=== PATIENT | female | born 1950 | race African-American/Black ===

== ENCOUNTER 2020-02-04 13:52 | Inpatient (IN) | payer MEDICARE ==
--- NOTE | 2020-02-04 14:43 | ED ---
Fever HPI - General Chief Complaint: Weakness Stated Complaint: Weakness, no appetite Time Seen by Provider: 02/04/20 14:13 Source: patient Mode of arrival: wheelchair Limitations: no limitations - Related Data Allergies Allergy/AdvReac Type Severity Reaction Status Date / Time No Known Allergies Allergy Verified 02/04/20 14:10 Review of Systems ROS Statement: Those systems with pertinent positive or pertinent negative responses have been documented in the HPI. ROS Other: All systems not noted in ROS Statement are negative. Past Medical History Past Medical History: Hypertension History of Any Multi-Drug Resistant Organisms: None Reported Past Surgical History: No Surgical Hx Reported Past Psychological History: No Psychological Hx Reported Smoking Status: Never smoker Past Alcohol Use History: None Reported Past Drug Use History: None Reported General Exam Limitations: no limitations Course Vital Signs 02/04/20 02/04/20 14:05 15:48 Temperature 101.2 F H Pulse Rate 122 H 103 H Respiratory 20 18 Rate Blood Pressure 97/64 103/93 O2 Sat by Pulse 95 93 L Oximetry - Reevaluation(s) Reevaluation #1: 02/04/20 16:22 medical record is reviewed Reevaluation #2: 02/04/20 16:23 Patient regarding findings and questions are answered Reevaluation #3: 02/04/20 16:23 Chief feeling better with fever control Medical Decision Making - Medical Decision Making 61 female fever likely coronavirus, bilateral pneumonia, new onset atrial fibrillation with RVR - Lab Data Result diagrams: 02/04/20 14:49 02/04/20 14:49 Lab Results 02/04/20 02/04/20 02/04/20 Range/Units 14:49 14:49 14:49 WBC 27.4 H (3.8-10.6) k/uL RBC 3.98 (3.80-5.40) m/uL Hgb 10.6 L (11.4-16.0) gm/dL Hct 33.2 L (34.0-46.0) % MCV 83.4 (80.0-100.0) fL MCH 26.6 (25.0-35.0) pg MCHC 31.9 (31.0-37.0) g/dL RDW 14.1 (11.5-15.5) % Plt Count 271 (150-450) k/uL Neutrophils % 94 % Lymphocytes % 2 % Monocytes % 3 % Eosinophils % 0 % Basophils % 1 % Neutrophils # 25.7 H (1.3-7.7) k/uL Lymphocytes # 0.4 L (1.0-4.8) k/uL Monocytes # 0.8 (0-1.0) k/uL Eosinophils # 0.0 (0-0.7) k/uL Basophils # 0.1 (0-0.2) k/uL Hypochromasia Slight PT 11.0 (9.0-12.0) sec INR 1.1 (<1.2) APTT 22.5 (22.0-30.0) sec Sodium 135 L (137-145) mmol/L Potassium 3.7 (3.5-5.1) mmol/L Chloride 101 (98-107) mmol/L Carbon Dioxide 23 (22-30) mmol/L Anion Gap 11 mmol/L BUN 20 H (7-17) mg/dL Creatinine 1.47 H (0.52-1.04) mg/dL Est GFR (CKD-EPI)AfAm 42 (>60 ml/min/1.73 sqM) Est GFR (CKD-EPI)NonAf 36 (>60 ml/min/1.73 sqM) Glucose 133 H (74-99) mg/dL Plasma Lactic Acid Jm (0.7-2.0) mmol/L Calcium 8.6 (8.4-10.2) mg/dL Magnesium 1.7 (1.6-2.3) mg/dL Total Bilirubin 1.5 H (0.2-1.3) mg/dL AST 128 H (14-36) U/L ALT 77 H (4-34) U/L Alkaline Phosphatase 215 H (38-126) U/L Lactate Dehydrogenase 1327 H (313-618) U/L C-Reactive Protein 346.9 H (<10.0) mg/L Total Protein 6.9 (6.3-8.2) g/dL Albumin 3.0 L (3.5-5.0) g/dL 02/04/20 Range/Units 14:49 WBC (3.8-10.6) k/uL RBC (3.80-5.40) m/uL Hgb (11.4-16.0) gm/dL Hct (34.0-46.0) % MCV (80.0-100.0) fL MCH (25.0-35.0) pg MCHC (31.0-37.0) g/dL RDW (11.5-15.5) % Plt Count (150-450) k/uL Neutrophils % % Lymphocytes % % Monocytes % % Eosinophils % % Basophils % % Neutrophils # (1.3-7.7) k/uL Lymphocytes # (1.0-4.8) k/uL Monocytes # (0-1.0) k/uL Eosinophils # (0-0.7) k/uL Basophils # (0-0.2) k/uL Hypochromasia PT (9.0-12.0) sec INR (<1.2) APTT (22.0-30.0) sec Sodium (137-145) mmol/L Potassium (3.5-5.1) mmol/L Chloride (98-107) mmol/L Carbon Dioxide (22-30) mmol/L Anion Gap mmol/L BUN (7-17) mg/dL Creatinine (0.52-1.04) mg/dL Est GFR (CKD-EPI)AfAm (>60 ml/min/1.73 sqM) Est GFR (CKD-EPI)NonAf (>60 ml/min/1.73 sqM) Glucose (74-99) mg/dL Plasma Lactic Acid Jm 4.8 H* (0.7-2.0) mmol/L Calcium (8.4-10.2) mg/dL Magnesium (1.6-2.3) mg/dL Total Bilirubin (0.2-1.3) mg/dL AST (14-36) U/L ALT (4-34) U/L Alkaline Phosphatase (38-126) U/L Lactate Dehydrogenase (313-618) U/L C-Reactive Protein (<10.0) mg/L Total Protein (6.3-8.2) g/dL Albumin (3.5-5.0) g/dL - EKG Data -: EKG Interpreted by Me (EKG shows sinus a cardia 113 GA 128 QRS 78 QTc 452) - Radiology Data Radiology results: report reviewed (CXR is bileteral pna), image reviewed Critical Care Time Critical Care Time: Yes Total Critical Care Time: 31 Disposition Clinical Impression: Fever, COVID-19, Bilateral pneumonia, Dehydration, Atrial fibrillation with RVR Disposition: ADMITTED IP TO THIS HOSP Condition: Serious Is patient prescribed a controlled substance at d/c from ED?: No Referrals: None,Stated [Primary Care Provider] - 1-2 days
--- NOTE | 2020-02-04 14:51 | XR ---
EXAMINATION TYPE: XR chest 1V portable DATE OF EXAM: 02/04/2020 COMPARISON: NONE HISTORY: Covid 19 pneumonia suspected, weakness, fatigue and loss of appetite TECHNIQUE: Single frontal view of the chest is obtained. FINDINGS: The heart is at the upper limit of normal however appearance may be accentuated by rotatio n. Patchy basilar density is present, there is no pneumothorax or pleural effusion. Pulmonary vascula rity and brenda within normal limits. Bones show normal mineralization. IMPRESSION: Possible basilar atelectasis, rotated exam. Consider follow-up PA and lateral chest x-ra y when stable.
[2020-02-04] MEDS ORDERED: ACETAMINOPHEN TAB 500 MG TAB PO STA (15:02)
[2020-02-04] MEDS ORDERED: SODIUM CHLORIDE 0.9% 1,000 ML IV STA (15:02)
[2020-02-04] MEDS ORDERED: IBUPROFEN 800 MG TAB PO STA (15:02)
[2020-02-04 15:04] LABS: Basophils # (A) 0.1 k/uL (0-0.2); Basophils % (A) 1 %; Eosinophils % (A) 0 %; HCT 33.2 % (34.0-46.0); HGB 10.6 gm/dL (11.4-16.0); Hypochromasia Slight; Lymphocytes # (A) 0.4 k/uL (1.0-4.8); Lymphocytes % (A) 2 %; MCH 26.6 pg (25.0-35.0); MCHC 31.9 g/dL (31.0-37.0); MCV 83.4 fL (80.0-100.0); Mean Platelet Volume 9.2; Monocytes # (A) 0.8 k/uL (0-1.0); Monocytes % (A) 3 %; Neutrophils # (A) 25.7 k/uL (1.3-7.7); Neutrophils % (A) 94 %; Platelet Count 271 k/uL (150-450); RBC 3.98 m/uL (3.80-5.40); RDW 14.1 % (11.5-15.5); WBC 27.4 k/uL (3.8-10.6)
[2020-02-04 15:21] LABS: INR 1.1 (<1.2); Partial Thromboplastin Time 22.5 sec (22.0-30.0)
[2020-02-04 16:02] LABS: C Reactive Protein 346.9 mg/L (<10.0)
[2020-02-04 16:08] LABS: Calcium 8.6 mg/dL (8.4-10.2); Magnesium 1.7 mg/dL (1.6-2.3); Potassium 3.7 mmol/L (3.5-5.1); Total Bilirubin 1.5 mg/dL (0.2-1.3); Total Protein 6.9 g/dL (6.3-8.2)
[2020-02-04] MEDS ORDERED: HEPARIN SODIUM,PORCINE 5,000 UNIT/ML 1 ML VIAL IV ONE (16:25)
[2020-02-04] MEDS ORDERED: HEPARIN SODIUM,PORCINE 5,000 UNIT/ML 1 ML VIAL IV PRN (16:25)
[2020-02-04] MEDS ORDERED: DILTIAZEM DRIP BOLUS FROM BAG 1 MG SOLN IV ONE (16:25)
[2020-02-04] MEDS ORDERED: AZITHROMYCIN 500 MG in SODIUM CHLORIDE 0.9% 250 ML IVPB STA (16:27)
[2020-02-04] MEDS ORDERED: HEPARIN SOD,PORK IN 0.45% NACL 25,000 UNIT in 0.45% NACL 1 250ML.BAG IV SCH (16:30)
[2020-02-04] MEDS: SODIUM CHLORIDE 0.9% 500 ML 500 ML IV SCH ×2 (16:40→16:41)
[2020-02-04] MEDS ORDERED: DILTIAZEM 125 MG in SODIUM CHLORIDE 0.9% 100 ML IV SCH (16:45)
[2020-02-04] MEDS: SODIUM CHLORIDE 0.9% 1,000 ML IV SCH ×2 (20:16→23:39)
[2020-02-05 04:26] LABS: Ferritin 925.4 ng/mL (10.0-291.0)
[2020-02-05] MEDS: SODIUM CHLORIDE 0.9% 1,000 ML IV SCH ×3 (06:06→19:56)
[2020-02-05 07:57] LABS: Basophils # (A) 0.1 k/uL (0-0.2); Basophils % (A) 0 %; Eosinophils % (A) 0 %; Hypochromasia Moderate; Lymphocytes % (A) 7 %; MCH 26.1 pg (25.0-35.0); MCHC 30.9 g/dL (31.0-37.0); MCV 84.5 fL (80.0-100.0); Mean Platelet Volume 9.2; Monocytes # (A) 0.8 k/uL (0-1.0); Monocytes % (A) 5 %; Neutrophils % (A) 85 %; Platelet Count 206 k/uL (150-450); RBC 3.31 m/uL (3.80-5.40); RDW 14.2 % (11.5-15.5); WBC 15.4 k/uL (3.8-10.6)
[2020-02-05 08:00] LABS: HGB 8.6 gm/dL (11.4-16.0)
[2020-02-05 08:06] LABS: Potassium 3.3 mmol/L (3.5-5.1)
[2020-02-05 08:07] LABS: Calcium 7.3 mg/dL (8.4-10.2)
[2020-02-05] MEDS: PANTOPRAZOLE 40 MG/10 ML VIAL IV SCH (08:38)
[2020-02-05] MEDS: ASPIRIN 81 MG PO SCH (08:38)
--- NOTE | 2020-02-05 11:26 | XR ---
EXAMINATION TYPE: XR chest 1V DATE OF EXAM: 02/05/2020 COMPARISON: Prior chest x-ray 02/04/2020 HISTORY: Pneumonia TECHNIQUE: Single frontal view of the chest is obtained. FINDINGS: There is no focal air space opacity, pleural effusion, or pneumothorax seen. The cardiac silhouette size is within normal limits. The osseous structures are intact. IMPRESSION: No acute process.
--- NOTE | 2020-02-05 12:11 | P.CRDCN ---
History of Present Illness History of present illness: The patient was not physically examined secondary to pending Covid 19 test. Information was obtained from the medical record and recommendations made remotely. HISTORY OF PRESENTING ILLNESS This is a pleasant 69-year-old female with no significant past medical history. We have been asked to see in consultation for atrial fibrillation. She presented to the hospital with symptoms of generalized weakness, poor appetite overall fatigue. She had a temperature on admission of 101.2F. EKG on admission revealed sinus tachycardia rate of 113. Telemetry tracings revealed there was one short burst of atrial tachycardia noted. Chest x-ray on admission revealed basilar atelectasis. Repeat today reveals no acute cardiopulmonary process. Laboratory data reviewed, WBC on admission 20 7. 4 repeat today 15.4, hemoglobin 8.6, platelets 206, sodium 139, potassium 3.3, creatinine 1.2, lactic acid on admission 4. 8 repeat after hydration 1.4, magnesium 1.7, total bilirubin 1.5, AST 128, ALT 77, alkaline phosphate 215, lactate 1327, C-reactive protein 346. She takes no daily cardiac medications other than aspirin 81 mg daily. There are no old records to review. PHYSICAL EXAMINATION Not performed ASSESSMENT Febrile illness Leukocytosis Lactic acidosis Transaminitis Atrial tachycardia PLAN Initiate on lopressor 25 mg BID. Heart rates should improve when underlying infection improves. Thank you kindly for this consultation. Nurse Practitioner note has been reviewed, I agree with a documented findings and plan of care. Patient was seen and examined. Past Medical History Past Medical History: Hypertension History of Any Multi-Drug Resistant Organisms: None Reported Past Surgical History: No Surgical Hx Reported Past Psychological History: No Psychological Hx Reported Smoking Status: Never smoker Past Alcohol Use History: None Reported Past Drug Use History: None Reported Medications and Allergies Home Medications Medication Instructions Recorded Confirmed Type Aspirin EC [Ecotrin Low Dose] 81 mg PO DAILY 02/04/20 02/04/20 History Allergies Allergy/AdvReac Type Severity Reaction Status Date / Time No Known Allergies Allergy Verified 02/04/20 17:00 Physical Exam Vitals: Vital Signs Temp Pulse Pulse Resp BP BP Pulse Ox 02/05/20 08:15 97.9 F 95 20 155/82 98 02/05/20 03:20 98.1 F 88 18 129/78 94 L 02/04/20 23:40 98 F 88 18 129/76 94 L 02/04/20 20:00 98.3 F 89 20 133/65 99 02/04/20 17:13 99.5 F 97 18 109/75 95 02/04/20 16:44 98.7 F 101 H 20 128/78 97 02/04/20 15:48 103 H 18 103/93 93 L 02/04/20 14:05 101.2 F H 122 H 20 97/64 95 Intake and Output 02/04/20 02/05/20 02/05/20 22:59 06:59 14:59 Intake Total 240 240 240 Output Total 0 Balance 240 240 240 Intake: Oral 240 240 240 Output: Urine 0 Stool 0 Other: Voiding Method Toilet # Voids 1 1 0 # Bowel Movements 0 Weight 117.48 kg 117.5 kg Results 02/05/20 07:03 02/05/20 07:03 Cardiac Enzymes 02/04/20 Range/Units 14:49 AST 128 H (14-36) U/L Lactate Dehydrogenase 1327 H (313-618) U/L Coagulation 02/04/20 Range/Units 14:49 PT 11.0 (9.0-12.0) sec APTT 22.5 (22.0-30.0) sec CBC 02/04/20 02/05/20 Range/Units 14:49 07:03 WBC 27.4 H 15.4 H (3.8-10.6) k/uL RBC 3.98 3.31 L (3.80-5.40) m/uL Hgb 10.6 L 8.6 L D (11.4-16.0) gm/dL Hct 33.2 L 28.0 L (34.0-46.0) % Plt Count 271 206 (150-450) k/uL Comprehensive Metabolic Panel 02/04/20 02/05/20 Range/Units 14:49 07:03 Sodium 135 L 139 (137-145) mmol/L Potassium 3.7 3.3 L (3.5-5.1) mmol/L Chloride 101 110 H (98-107) mmol/L Carbon Dioxide 23 23 (22-30) mmol/L BUN 20 H 24 H (7-17) mg/dL Creatinine 1.47 H 1.20 H (0.52-1.04) mg/dL Glucose 133 H 95 (74-99) mg/dL Calcium 8.6 7.3 L (8.4-10.2) mg/dL AST 128 H (14-36) U/L ALT 77 H (4-34) U/L Alkaline Phosphatase 215 H (38-126) U/L Total Protein 6.9 (6.3-8.2) g/dL Albumin 3.0 L (3.5-5.0) g/dL Current Medications Generic Name Dose Route Start Last Admin Trade Name Freq PRN Reason Stop Dose Admin Acetaminophen 650 mg 02/04/20 21:13 Acetaminophen Tab 325 Mg Tab PO Q6HR PRN Fever and/ or Pain Aspirin 81 mg 02/05/20 09:00 02/05/20 08:38 Aspirin 81 Mg PO 81 mg DAILY DANIEL Administration Sodium Chloride 1,000 mls @ 100 mls/hr 02/04/20 16:30 02/05/20 06:06 Saline 0.9% IV 130 mls/hr .Q10H DANIEL Administration Azithromycin 500 mg/ Sodium 250 mls @ 250 mls/hr 02/05/20 16:00 Chloride IVPB DAILY@1600 DANIEL Ceftriaxone Sodium 1 gm/ 50 mls @ 100 mls/hr 02/04/20 21:15 02/04/20 22:06 Sodium Chloride IVPB 100 mls/hr HS DANIEL Administration Pantoprazole Sodium 40 mg 02/05/20 09:00 02/05/20 08:38 Pantoprazole 40 Mg/10 Ml Vial IV 40 mg DAILY DANIEL Administration Intake and Output 02/04/20 02/05/20 02/05/20 22:59 06:59 14:59 Intake Total 240 240 240 Output Total 0 Balance 240 240 240 Intake: Oral 240 240 240 Output: Urine 0 Stool 0 Other: Voiding Method Toilet # Voids 1 1 0 # Bowel Movements 0 Weight 117.48 kg 117.5 kg 02/05/20 07:03 02/05/20 07:03
[2020-02-05] MEDS: METOPROLOL TARTRATE 25 MG TAB PO SCH ×2 (12:47→19:55)
[2020-02-05 13:00] LABS: Appearance,Urine Turbid (Clear); Bacteria,Urine Occasional /hpf; Bilirubin,Urine Negative (Negative); Blood,Urine Large (Negative); Color,Urine Yellow; Glucose,Urine (UA) Negative (Negative); Ketones,Urine Negative (Negative); Leukocyte Esterase,Urine Large (Negative); Mucus,Urine Rare /hpf; Nitrite,Urine Negative (Negative); Protein,Urine 2+ (Negative); RBC,Urine >182 /hpf (0-5); Specific Gravity,Urine 1.024 (1.001-1.035); Squamous Epithelial Cell,Urine 3 /hpf (0-4); WBC,Urine >182 /hpf (0-5)
--- NOTE | 2020-02-05 15:09 | P.HPIM ---
History of Present Illness Patient is a pleasant 70-year-old female came in with complaints of fever has been going on for last couple days. Poor appetite fatigue. Patient denied any dysuria although patient does have hematuria. Chest x-ray showed some bibasilar atelectasis and patient is admitted for pneumonia although patient doesn't have any significant cough or sputum production at this time. Patient was also complaining of abdominal pain in the lower abdominal quadrants in the midabdomen and right lower abdominal quadrant. My suspicion is low for appendicitis. Patient does have mildly elevated liver enzymes. Patient had elevated serum creatinine of 1.47 came down to 1.2 with IV fluids I do not have her baseline. had leukocytosis with white blood cell count of 27,000 came down to 15,000.. Cor bleed 19 was ordered patient does have elevated ferritin and elevated LDH these are inflammatory markers which are elevated in any infection that she did have relative lymphopenia which resolved. Patient also has atrial tachycardia for which patient was started on beta jorge by audiology. Patient is not being initiated on any anti-correlation at this time. Patient also has lactic acidosis which improved with IV fluids. Review of Systems REVIEW OF SYSTEMS: CONSTITUTIONAL: As mentioned in HPI. HEENT: No recent visual problems or hearing problems. Denied any sore throat. CARDIOVASCULAR: No chest pain, orthopnea, PND, no palpitations, no syncope. PULMONARY: No shortness of breath, no cough, no hemoptysis. GASTROINTESTINAL: As mentioned in HPI NEUROLOGICAL: No headaches, no weakness, no numbness. HEMATOLOGICAL: Denies any bleeding or petechiae. GENITOURINARY: Denies any burning micturition, frequency, or urgency. MUSCULOSKELETAL/RHEUMATOLOGICAL: Denies any joint pain, swelling, or any muscle pain. ENDOCRINE: Denies any polyuria or polydipsia. The rest of the 14-point review of systems is negative. Past Medical History Past Medical History: Hypertension History of Any Multi-Drug Resistant Organisms: None Reported Past Surgical History: No Surgical Hx Reported Past Psychological History: No Psychological Hx Reported Smoking Status: Never smoker Past Alcohol Use History: None Reported Past Drug Use History: None Reported Medications and Allergies Home Medications Medication Instructions Recorded Confirmed Type Aspirin EC [Ecotrin Low Dose] 81 mg PO DAILY 02/04/20 02/04/20 History Allergies Allergy/AdvReac Type Severity Reaction Status Date / Time No Known Allergies Allergy Verified 02/04/20 17:00 Physical Exam Vitals: Vital Signs Temp Pulse Pulse Resp BP BP Pulse Ox 02/05/20 12:00 98.5 F 96 20 163/83 98 02/05/20 08:15 97.9 F 95 20 155/82 98 02/05/20 03:20 98.1 F 88 18 129/78 94 L 02/04/20 23:40 98 F 88 18 129/76 94 L 02/04/20 20:00 98.3 F 89 20 133/65 99 02/04/20 17:13 99.5 F 97 18 109/75 95 02/04/20 16:44 98.7 F 101 H 20 128/78 97 02/04/20 15:48 103 H 18 103/93 93 L Intake and Output 02/04/20 02/05/20 02/05/20 22:59 06:59 14:59 Intake Total 240 240 240 Output Total 0 Balance 240 240 240 Intake: Oral 240 240 240 Output: Urine 0 Stool 0 Other: Voiding Method Toilet # Voids 1 1 0 # Bowel Movements 0 Weight 117.48 kg 117.5 kg PHYSICAL EXAMINATION: GENERAL: The patient is alert and oriented x3, not in any acute distress. Well developed, well nourished. HEENT: Pupils are round and equally reacting to light. EOMI. No scleral icterus. No conjunctival pallor. Normocephalic, atraumatic. No pharyngeal erythema. No thyromegaly. CARDIOVASCULAR: S1 and S2 present. No murmurs, rubs, or gallops. PULMONARY: Chest is clear to auscultation, no wheezing or crackles. ABDOMEN: Soft, mild abdominal tenderness in the suprapubic and infraumbilical area, nondistended, normoactive bowel sounds. No palpable organomegaly. MUSCULOSKELETAL: No joint swelling or deformity. EXTREMITIES: No cyanosis, clubbing, or pedal edema. NEUROLOGICAL: Gross neurological examination did not reveal any focal deficits. SKIN: No rashes. Results CBC & Chem 7: 02/05/20 07:03 02/05/20 07:03 Labs: Abnormal Lab Results - Last 24 Hours (Table) 02/04/20 02/04/20 02/04/20 Range/Units 14:49 14:49 14:49 WBC 27.4 H (3.8-10.6) k/uL RBC (3.80-5.40) m/uL Hgb 10.6 L (11.4-16.0) gm/dL Hct 33.2 L (34.0-46.0) % MCHC (31.0-37.0) g/dL Neutrophils # 25.7 H (1.3-7.7) k/uL Lymphocytes # 0.4 L (1.0-4.8) k/uL Sodium 135 L (137-145) mmol/L Potassium (3.5-5.1) mmol/L Chloride (98-107) mmol/L BUN 20 H (7-17) mg/dL Creatinine 1.47 H (0.52-1.04) mg/dL Glucose 133 H (74-99) mg/dL Plasma Lactic Acid Jm 4.8 H* (0.7-2.0) mmol/L Calcium (8.4-10.2) mg/dL Ferritin 925.4 H (10.0-291.0) ng/mL Total Bilirubin 1.5 H (0.2-1.3) mg/dL AST 128 H (14-36) U/L ALT 77 H (4-34) U/L Alkaline Phosphatase 215 H (38-126) U/L Lactate Dehydrogenase 1327 H (313-618) U/L C-Reactive Protein 346.9 H (<10.0) mg/L Albumin 3.0 L (3.5-5.0) g/dL Procalcitonin (0.02-0.09) ng/mL Urine Appearance (Clear) Urine Protein (Negative) Urine Blood (Negative) Ur Leukocyte Esterase (Negative) Urine RBC (0-5) /hpf Urine WBC (0-5) /hpf Urine WBC Clumps (None) /hpf Urine Bacteria (None) /hpf Urine Mucus (None) /hpf 02/04/20 02/05/20 02/05/20 Range/Units 14:49 07:03 07:03 WBC 15.4 H (3.8-10.6) k/uL RBC 3.31 L (3.80-5.40) m/uL Hgb 8.6 L D (11.4-16.0) gm/dL Hct 28.0 L (34.0-46.0) % MCHC 30.9 L (31.0-37.0) g/dL Neutrophils # 13.0 H (1.3-7.7) k/uL Lymphocytes # (1.0-4.8) k/uL Sodium (137-145) mmol/L Potassium 3.3 L (3.5-5.1) mmol/L Chloride 110 H (98-107) mmol/L BUN 24 H (7-17) mg/dL Creatinine 1.20 H (0.52-1.04) mg/dL Glucose (74-99) mg/dL Plasma Lactic Acid Jm (0.7-2.0) mmol/L Calcium 7.3 L (8.4-10.2) mg/dL Ferritin (10.0-291.0) ng/mL Total Bilirubin (0.2-1.3) mg/dL AST (14-36) U/L ALT (4-34) U/L Alkaline Phosphatase (38-126) U/L Lactate Dehydrogenase (313-618) U/L C-Reactive Protein (<10.0) mg/L Albumin (3.5-5.0) g/dL Procalcitonin 48.66 H (0.02-0.09) ng/mL Urine Appearance (Clear) Urine Protein (Negative) Urine Blood (Negative) Ur Leukocyte Esterase (Negative) Urine RBC (0-5) /hpf Urine WBC (0-5) /hpf Urine WBC Clumps (None) /hpf Urine Bacteria (None) /hpf Urine Mucus (None) /hpf 02/05/20 Range/Units 12:25 WBC (3.8-10.6) k/uL RBC (3.80-5.40) m/uL Hgb (11.4-16.0) gm/dL Hct (34.0-46.0) % MCHC (31.0-37.0) g/dL Neutrophils # (1.3-7.7) k/uL Lymphocytes # (1.0-4.8) k/uL Sodium (137-145) mmol/L Potassium (3.5-5.1) mmol/L Chloride (98-107) mmol/L BUN (7-17) mg/dL Creatinine (0.52-1.04) mg/dL Glucose (74-99) mg/dL Plasma Lactic Acid Jm (0.7-2.0) mmol/L Calcium (8.4-10.2) mg/dL Ferritin (10.0-291.0) ng/mL Total Bilirubin (0.2-1.3) mg/dL AST (14-36) U/L ALT (4-34) U/L Alkaline Phosphatase (38-126) U/L Lactate Dehydrogenase (313-618) U/L C-Reactive Protein (<10.0) mg/L Albumin (3.5-5.0) g/dL Procalcitonin (0.02-0.09) ng/mL Urine Appearance Turbid H (Clear) Urine Protein 2+ H (Negative) Urine Blood Large H (Negative) Ur Leukocyte Esterase Large H (Negative) Urine RBC >182 H (0-5) /hpf Urine WBC >182 H (0-5) /hpf Urine WBC Clumps Many H (None) /hpf Urine Bacteria Occasional H (None) /hpf Urine Mucus Rare H (None) /hpf Thrombosis Risk Factor Assmnt - Choose All That Apply Any of the Below Risk Factors Present?: No Each Risk Factor Represents 2 Points: Age 61-74 years Other congenital or acquired thrombophilia - If yes, enter type in comment: No Thrombosis Risk Factor Assessment Total Risk Factor Score: 2 Thrombosis Risk Factor Assessment Level: Low Risk Assessment and Plan Plan: -Severe Sepsis most probably secondary to urinary tract infection. Considering her lower abdominal pain nephrolithiasis is a consideration low possibility of appendicitis. Once Covid 19 is ruled out patient may benefit from a computed tomography scan with contrast since patient creatinine is high I'm not ordering a Computed tomography scan of the abdomen at this time. Patient may benefit from this test. Patient will be continued on IV fluids and IV antibiotics Rocephin and azithromycin will be discontinued as I do not see any clear with clear evidence of pneumonia possibility of Covid 19 is low. -Hematuria most probably secondary to UTI of nephrolithiasis patient may benefit from CT as mentioned above -Elevated liver enzymes probably related to sepsis if they continue to be elevated may benefit from ultrasound of the liver gallbladder as of now I'll hold off on this test. -Atrial tachycardia for which patient is on beta jorge as mentioned above -Hypertension holding off antiemesis medications because of severe sepsis No pharmacologic DVT prophylaxis because of her hematuria GI prophylaxis with Pepcid
--- NOTE | 2020-02-05 15:21 | P.CNPUL ---
History of Present Illness History of present illness: This is a 69-year-old -[place] female patient who has been feeling sick and having according to her cold-like symptoms for the past 1 week. She was having some chills. She was having poor appetite. She was not sure if she was having real fever but she thought that she was feeling feverish. This has been going on for almost a week. No significant shortness of breath. No cough or sputum production. Denied having any nausea vomiting or abdominal pain. No dysuria. She reported loss and energy and appetite and she was getting progressively more weak. She had a fall in the kitchen and she attributed this to have diminished oral intake and loss in balance. No syncope. No exposure to coronavirus Covid 19. The patient came into the hospital and the patient had a fever of 11.2. The patient also had leukocytosis. Chest x-rays revealed no significant acute abnormalities. The patient had abnormal LFTs. The serum creatinine was elevated at 1.47 and the patient was started on IV fluids in the subsequent creatinine came back at 1.2. The patient was started on Rocephin and Zithromax and the patient was admitted to the hospital and a pulmonary consultation was requested. She denies having any abdominal pain. She is having some tenderness in the right upper quadrant area. No history of any cholelithiasis. White cell count was 27.4 at time of admission is currently down to 15.4. Ultrasound of the right upper quadrant and gallbladder disease in progress. Coronavirus Covid 19 testing is also in progress. The urinalysis came back later on to be quite abnormal. Despite absence of any dysuria. CO2 emergency, the patient's white cell count and the UA was above 182 with white cell clumps and protein. Review of Systems Constitutional: Reports chills, Reports fatigue, Reports fever (The patient felt feverish), Reports poor appetite, Reports weakness Eyes: denies as per HPI, denies blurred vision, denies bulging eye, denies decreased vision, denies diplopia, denies discharge, denies dry eye, denies irritation, denies itching, denies pain, denies photophobia, denies loss of peripheral vision, denies loss of vision, denies tunnel vision/blind spots Ears: deny: decreased hearing, ear discharge, earache, tinnitus Ears, nose, mouth and throat: Denies headache, Denies sore throat Breasts: absent: as per HPI, change in shape, gynecomastia, masses, nipple discharge, pain, skin changes, swelling Cardiovascular: Denies chest pain, Denies shortness of breath Respiratory: Reports as per HPI Gastrointestinal: Reports as per HPI Genitourinary: Reports as per HPI Menstruation: Reports as per HPI Musculoskeletal: Reports as per HPI Musculoskeletal: absent: ankle pain, ankle stiffness, ankle swelling Integumentary: Reports as per HPI Neurological: Reports as per HPI, Reports weakness Psychiatric: Reports as per HPI Endocrine: Reports as per HPI, Reports fatigue Hematologic/Lymphatic: Reports as per HPI Allergic/Immunologic: Reports as per HPI Past Medical History Past Medical History: Hypertension History of Any Multi-Drug Resistant Organisms: None Reported Past Surgical History: No Surgical Hx Reported Past Psychological History: No Psychological Hx Reported Smoking Status: Never smoker Past Alcohol Use History: None Reported Past Drug Use History: None Reported Medications and Allergies Home Medications Medication Instructions Recorded Confirmed Type Aspirin EC [Ecotrin Low Dose] 81 mg PO DAILY 02/04/20 02/04/20 History Allergies Allergy/AdvReac Type Severity Reaction Status Date / Time No Known Allergies Allergy Verified 02/04/20 17:00 Physical Exam Vitals: Vital Signs Temp Pulse Pulse Resp BP BP Pulse Ox 02/05/20 03:20 98.1 F 88 18 129/78 94 L 02/04/20 23:40 98 F 88 18 129/76 94 L 02/04/20 20:00 98.3 F 89 20 133/65 99 02/04/20 17:13 99.5 F 97 18 109/75 95 02/04/20 16:44 98.7 F 101 H 20 128/78 97 02/04/20 15:48 103 H 18 103/93 93 L 02/04/20 14:05 101.2 F H 122 H 20 97/64 95 Intake and Output 02/04/20 02/05/20 02/05/20 22:59 06:59 14:59 Intake Total 240 240 240 Output Total 0 Balance 240 240 240 Intake: Oral 240 240 240 Output: Urine 0 Stool 0 Other: # Voids 1 1 0 # Bowel Movements 0 Weight 117.48 kg 117.5 kg The patient appeared well nourished and normally developed. Vital signs as documented. Head exam is unremarkable. No scleral icterus or corneal arcus noted. Neck is without jugular venous distension, thyromegaly, or carotid bruits. Carotid upstrokes are brisk bilaterally. Lungs are clear to auscultation and percussion. Cardiac exam reveals the PMI to be normally sized and situated. Rhythm is regular. First and second heart sounds normal. No murmurs, rubs or gallops. Abdominal exam reveals normal bowel sounds, no masses, no organomegaly and no aortic enlargement. The patient has limited direct tenderness in the right upper quadrant. Extremities are nonedematous and both femoral and pedal pulses are normal.Examination of the skin revealed no evidence of significant rashes, suspicious appearing nevi or other concerning lesions.Neurologically, the patient is awake and alert and the patient does not have any focal neurological deficit. Cranial nerves are essentially intact. Results - Laboratory Findings CBC and BMP: 02/05/20 07:03 02/05/20 07:03 PT/INR, D-dimer PT 11.0 sec (9.0-12.0) 02/04/20 14:49 INR 1.1 (<1.2) 02/04/20 14:49 Abnormal lab findings: Abnormal Labs 02/04/20 02/04/20 02/04/20 14:49 14:49 14:49 WBC 27.4 H RBC Hgb 10.6 L Hct 33.2 L MCHC Neutrophils # 25.7 H Lymphocytes # 0.4 L Sodium 135 L Potassium Chloride BUN 20 H Creatinine 1.47 H Glucose 133 H Plasma Lactic Acid Jm 4.8 H* Calcium Ferritin 925.4 H Total Bilirubin 1.5 H AST 128 H ALT 77 H Alkaline Phosphatase 215 H Lactate Dehydrogenase 1327 H C-Reactive Protein 346.9 H Albumin 3.0 L 02/05/20 02/05/20 07:03 07:03 WBC 15.4 H RBC 3.31 L Hgb 8.6 L D Hct 28.0 L MCHC 30.9 L Neutrophils # 13.0 H Lymphocytes # Sodium Potassium 3.3 L Chloride 110 H BUN 24 H Creatinine 1.20 H Glucose Plasma Lactic Acid Jm Calcium 7.3 L Ferritin Total Bilirubin AST ALT Alkaline Phosphatase Lactate Dehydrogenase C-Reactive Protein Albumin - Diagnostic Findings Chest x-ray: image reviewed Assessment and Plan Plan: 1 UTI with secondary leukocytosis and constitutional symptoms, possibly early sepsis. 2 abnormal LFTs with some right upper quadrant tenderness. Consider cholecystitis 3 leukocytosis, improving secondary to above 4 sinus tachycardia 5 hypertension 6 low suspicion for coronavirus Covid 19 infection and the testing is in progress Plan IV fluids with normal state rate of 100 disease in our Discontinue the Zithromax Continue IV Rocephin Ultrasound of the right upper quadrant and the gallbladder was initially ordered. However, based on the findings of a complicated UTI, a CAT scan of the abdomen and pelvis would be of value. Awaiting the coronavirus Covid 19 testing. Once negative, would proceed with a CAT scan of the abdomen and pelvis for further characterization of the abnormal LFTs and the complicated UTI. monitor fever pattern urine cultures and blood culture we'll continue to follow.
[2020-02-05] MEDS ORDERED: AZITHROMYCIN 500 MG in SODIUM CHLORIDE 0.9% 250 ML IVPB SCH (16:00)
[2020-02-05] MEDS: ENOXAPARIN 40 MG/0.4 ML SYRINGE SQ SCH (16:11)
[2020-02-05] MEDS: FAMOTIDINE 20 MG TAB PO SCH (16:11)
[2020-02-05] MEDS ORDERED: VANCOMYCIN 0 MG in SODIUM CHLORIDE 0.9% 250 ML IVPB ONE (18:58)
[2020-02-05] MEDS ORDERED: VANCOMYCIN IV PER PHARMACY 1 EACH MISC MISCELLANE PRN (19:02)
[2020-02-05] MEDS ORDERED: POTASSIUM CHLORIDE ER 20 MEQ TAB.ER PO STA (20:37)
[2020-02-05] MEDS ORDERED: VANCOMYCIN 2,500 MG in SODIUM CHLORIDE 0.9% 500 ML 500 ML IVPB ONE (21:00)
[2020-02-06 07:15] LABS: Basophils % (A) 0 %; Eosinophils # (A) 0.1 k/uL (0-0.7); Eosinophils % (A) 0 %; HCT 27.2 % (34.0-46.0); HGB 8.2 gm/dL (11.4-16.0); Hypochromasia Marked; Lymphocytes # (A) 0.9 k/uL (1.0-4.8); Lymphocytes % (A) 6 %; MCHC 30.2 g/dL (31.0-37.0); MCV 85.9 fL (80.0-100.0); Mean Platelet Volume 10.7; Monocytes # (A) 0.3 k/uL (0-1.0); Monocytes % (A) 2 %; Neutrophils # (A) 13.2 k/uL (1.3-7.7); Neutrophils % (A) 89 %; Platelet Count 208 k/uL (150-450); RBC 3.17 m/uL (3.80-5.40); RDW 14.6 % (11.5-15.5); WBC 14.8 k/uL (3.8-10.6)
[2020-02-06 07:27] LABS: Albumin 2.2 g/dL (3.5-5.0); Calcium 6.8 mg/dL (8.4-10.2); Potassium 3.5 mmol/L (3.5-5.1); Total Bilirubin 0.8 mg/dL (0.2-1.3); Total Protein 5.5 g/dL (6.3-8.2)
[2020-02-06] MEDS: SODIUM CHLORIDE 0.9% 1,000 ML IV SCH ×2 (09:28→20:08)
[2020-02-06] MEDS: METOPROLOL TARTRATE 25 MG TAB PO SCH ×2 (09:29→20:08)
[2020-02-06] MEDS: ENOXAPARIN 40 MG/0.4 ML SYRINGE SQ SCH (09:29)
[2020-02-06] MEDS: FAMOTIDINE 20 MG TAB PO SCH (09:29)
[2020-02-06] MEDS: ASPIRIN 81 MG PO SCH (09:29)
[2020-02-06] MEDS: PANTOPRAZOLE 40 MG/10 ML VIAL IV SCH (09:29)
[2020-02-06] MEDS ORDERED: IOPAMIDOL CONTRAST (ORAL USE) VIAL PO PRN (10:33)
[2020-02-06] MEDS: metroNIDAZOLE-NS PMX 500 MG in SALINE 1 100ML.BAG IVPB SCH ×3 (11:06→23:33)
--- NOTE | 2020-02-06 12:55 | CT ---
EXAMINATION TYPE: CT abdomen pelvis wo con DATE OF EXAM: 02/06/2020 HISTORY: COVID, PNA, Afib with RVR, abdominal pain and sepsis. CT DLP: 1194.2 mGycm. Automated Expos ure Control for Dose Reduction was Utilized. TECHNIQUE: CT scan of the abdomen and pelvis is performed with oral but without IV contrast. COMPARISON: Chest x-ray from yesterday FINDINGS: Within the limitations of a non-contrast study, the following observations are made. Subop timal study due to artifact from adjacent arms. LUNG BASES: Mild cardiomegaly. Small to tiny pericardial effusion. Tiny bilateral pleural effusions LIVER/GB: Slight heterogeneity and lobulated contour to liver. No surrounding ascites. Correlate clin ically to exclude cirrhosis. Liver size within normal limits. PANCREAS: No significant abnormality is seen. SPLEEN: No splenomegaly noted. ADRENALS: No significant abnormality is seen. KIDNEYS: No renal stones or hydronephrosis present bilaterally. BOWEL: Oral contrast reaches level of the hepatic flexure. No suspicious small or large bowel dilatat ion.. GENITAL ORGANS: Markedly enlarged anteverted uterus extending superior to the umbilicus. Local mass e ffect. There are calcifications in the lower uterine segment and additional scattered calcifications probable fibroids. There is 5.0 cm right exophytic lobulation probable subserosal fibroid axial image 59. There is central hypodensity with foci of air. This measures roughly 9.4 x 7.4 cm transversely a xial image 63 x 11 cm cranial caudal dimension coronal image 39. Hyperechoic soft tissue lesion left pelvis measuring 4.8 x 5.9 cm axial image 79 exophytic fibroid or enlarged left ovary. Small amount o f free fluid in the pelvis. LYMPH NODES: No greater than 1cm abdominal or pelvic lymph nodes are appreciated. OSSEOUS STRUCTURES: Sacralized L5 segment. Mild to moderate narrowing and spurring in both hip joints . OTHER: No significant additional abnormality is seen. IMPRESSION: Abnormal appearance to the uterus. Marked enlargement. Suspicious large central hypodensi ty with scattered foci of air worrisome for infection/endometritis. Underlying neoplasm needs to be e xcluded in patient of this age. Results communicated to patient's nurse via telephone at time of dictation. A Document Only message has been documented for Emmie Hernandez MD in the [employer] system on 02/06/2020 12:53 PM, Message ID [id number].
--- NOTE | 2020-02-06 14:48 | P.PN ---
Subjective Progress Note Date: 02/06/20 Principal diagnosis: UTI, leukocytosis, early sepsis, abdominal pain This is a 69-year-old -[place] female patient who has been feeling sick and having according to her cold-like symptoms for the past 1 week. She was having some chills. She was having poor appetite. She was not sure if she was having real fever but she thought that she was feeling feverish. This has been going on for almost a week. No significant shortness of breath. No cough or sputum production. Denied having any nausea vomiting or abdominal pain. No dysuria. She reported loss and energy and appetite and she was getting progressively more weak. She had a fall in the kitchen and she attributed this to have diminished oral intake and loss in balance. No syncope. No exposure to coronavirus Covid 19. The patient came into the hospital and the patient had a fever of 11.2. The patient also had leukocytosis. Chest x-rays revealed no significant acute abnormalities. The patient had abnormal LFTs. The serum creatinine was elevated at 1.47 and the patient was started on IV fluids in the subsequent creatinine came back at 1.2. The patient was started on Rocephin and Zithromax and the patient was admitted to the hospital and a pulmonary consultation was requested. She denies having any abdominal pain. She is having some tenderness in the right upper quadrant area. No history of any cholelithiasis. White cell count was 27.4 at time of admission is currently down to 15.4. Ultrasound of the right upper quadrant and gallbladder disease in progress. Coronavirus Covid 19 testing is also in progress. The urinalysis came back later on to be quite abnormal. Despite absence of any dysuria. CO2 emergency, the patient's white cell count and the UA was above 182 with white cell clumps and protein. On 02/06/2020 patient seen in follow-up on selective care unit. She states she is just not feeling good, her abdominal pain is improved, denies any nausea or vomiting, denies any shortness of breath, no pulmonary symptoms, no cough, congestion, low-grade fever today, 99.1, urinalysis came back positive, patient was started on IV Rocephin, last night one of the blood cultures showed gram- positive bacilli, final cultures pending, patient was started on vancomycin, [facility] will can probably stop start the patient on Flagyl. Today's labs have been reviewed, with no cell count is 14.8, hemoglobin is 8.2, renal profile has improved with hydration, LFTs are improving, progressive treatment candidate positive at 48. COVID 19 negative Objective - Vital Signs Vital signs: Vital Signs Temp 99.1 F 02/06/20 08:00 Pulse 107 H 02/06/20 11:23 Resp 16 02/06/20 11:23 BP 148/87 02/06/20 11:23 Pulse Ox 91 L 02/06/20 11:23 Intake & Output 02/05/20 02/06/20 02/06/20 18:59 06:59 18:59 Intake Total 1737 240 240 Output Total 250 120 0 Balance 1487 120 240 Weight 122.2 kg Intake: Intake, IV Titration 1260 Amount Sodium Chloride 0.9% 1, 1260 000 ml @ 100 mls/hr IV . Q10H DANIEL Rx#:[id number] Oral 477 240 240 Output: Urine 250 120 Stool 0 0 Other: Voiding Method Toilet Toilet Toilet # Voids 2 1 # Bowel Movements 0 - Exam GENERAL EXAM: Alert, very pleasant, room air pulse ox is 91% -[place] female, comfortable in no apparent distress. HEAD: Normocephalic/atraumatic. EYES: Normal reaction of pupils, equal size. Conjunctiva pink, sclera white. NOSE: Clear with pink turbinates. THROAT: No erythema or exudates. NECK: No masses, no JVD, no thyroid enlargement, no adenopathy. CHEST: No chest wall deformity. Symmetrical expansion. LUNGS: Equal air entry with no crackles, wheeze, rhonchi or dullness. CVS: Regular rate and rhythm, normal S1 and S2, no gallops, no murmurs, no rubs ABDOMEN: Soft, nontender. No hepatosplenomegaly, normal bowel sounds, no guarding or rigidity. EXTREMITIES: No clubbing, no edema, no cyanosis, 2+ pulses and upper and lower extremities. MUSCULOSKELETAL: Muscle strength and tone normal. SPINE: No scoliosis or deformity SKIN: No rashes CENTRAL NERVOUS SYSTEM: Alert and oriented -3. No focal deficits, tone is no rmal in all 4 extremities. PSYCHIATRIC: Alert and oriented -3. Appropriate affect. Intact judgment and insight. - Labs CBC & Chem 7: 02/06/20 06:55 02/06/20 06:55 Labs: Abnormal Lab Results - Last 24 Hours (Table) 02/04/20 02/06/20 02/06/20 Range/Units 14:49 06:55 06:55 WBC 14.8 H (3.8-10.6) k/uL RBC 3.17 L (3.80-5.40) m/uL Hgb 8.2 L (11.4-16.0) gm/dL Hct 27.2 L (34.0-46.0) % MCHC 30.2 L (31.0-37.0) g/dL Neutrophils # 13.2 H (1.3-7.7) k/uL Lymphocytes # 0.9 L (1.0-4.8) k/uL Chloride 116 H (98-107) mmol/L Carbon Dioxide 21 L (22-30) mmol/L Calcium 6.8 L (8.4-10.2) mg/dL AST 60 H (14-36) U/L ALT 50 H (4-34) U/L Alkaline Phosphatase 156 H (38-126) U/L Total Protein 5.5 L (6.3-8.2) g/dL Albumin 2.2 L (3.5-5.0) g/dL Procalcitonin 48.66 H (0.02-0.09) ng/mL Microbiology - Last 24 Hours (Table) 02/04/20 16:13 Blood Culture Gram Stain - Preliminary Blood 02/04/20 16:13 Blood Culture - Final Blood Assessment and Plan Plan: 1 UTI with secondary leukocytosis and constitutional symptoms, possibly early sepsis. 2 abnormal LFTs with some right upper quadrant tenderness. Consider cholecystitis 3 leukocytosis, improving secondary to above 4 sinus tachycardia 5 hypertension 6 Covid 19 ruled out 7 uterine enlargement with the possibility of infection/endometriosis, NUCLEAR INSTRUCTOR consult is pending Plan: Continue antibiotics, awaiting results of the urine culture, we'll add Flagyl, discontinue vancomycin, CT of the abdomen and pelvis reviewed, we'll consult NUCLEAR INSTRUCTOR services in regards to abnormal findings of the uterus. GI and DVT prophylaxis, we'll continue to follow. Covid 19 has been ruled out. I performed a history & physical examination of the patient and discussed their management with my nurse practitioner, Lilly Ortiz. I reviewed the nurse practitioner's note and agree with the documented findings and plan of care. Lung sounds are positive for diminished breath sounds. The findings and the imp ression was discussed with the patient. I attest to the documentation by the nurse practitioner. Time with Patient: Less than 30
[2020-02-06] MEDS ORDERED: VANCOMYCIN 2,250 MG in SODIUM CHLORIDE 0.9% 500 ML 500 ML IVPB SCH (16:00)
--- NOTE | 2020-02-06 17:45 | P.OBCN ---
History of Present Illness Consult date: 02/06/20 Requesting physician: Lilly Ortiz Reason for consult: other (Pelvic mass) Chief complaint: Abdominal discomfort, fatigue History of present illness: This is a 69-year-old female 1 para 1 who presented to the emergency room with fever, poor appetite, and generalized abdominal discomfort. Her COVID 19 test was negative. A computed tomography scan was ordered and showed a markedly enlarged uterus extending superior to the umbilicus. There were calcifications noted in the lower uterine segment and scattered calcifications consistent with probable fibroids. There was also a 5 cm right exophytic lobulation probable subserosal fibroid. There was a central hypodensity with a foci of air. This measured up to 11 cm. There was also a hyperechoic soft tissue density in the left pelvis measuring 4.8 x 5.9 cm it could be an exophytic fibroid or enlarged ovary. There was a small amount of free fluid in the pelvis there were no enlarged pelvic or abdominal lymph nodes. The patient does state that she had been diagnosed with fibroids in the past although she is not a very good historian. She states her last menstrual period was approximately age 40s. She was never put on any hormone replacement. She does have a history of heavy menses when she was having her cycles. She does state that she has been having postmenopausal bleeding since about September of this year. At first she only noticed it once in a while when she wiped but since she fell this past weekend, she has noticed more bleeding. She states she changes a pad about every 5 hours. She states her equilibrium was off and she fell on Tuesday and Tuesday prior to coming into the hospital. She does have a history of 1 vaginal delivery and no history of any sexually transmitted diseases. She states her last Pap smear was approximately 5 years ago and was normal. She denies any history of abnormal Pap smears. She denies any history of sexually transmitted diseases. Review of Systems Constitutional: Reports fatigue, Reports poor appetite, Reports weakness Gastrointestinal: Reports abdominal pain, Reports loss of appetite Genitourinary: Reports abnormal vaginal bleeding (Has noticed spotting since about September 2019 off and on.), Reports stress incontinence (Has noticed it more recently.), Denies Menstruation: Reports postmenopausal Neurological: Reports balance difficulties Past Medical History Past Medical History: Hypertension Additional Past Medical History / Comment(s): Patient states she has not seen a physician for any medical problem in quite some time, probably at least 5 years. History of Any Multi-Drug Resistant Organisms: None Reported Past Surgical History: Breast Surgery (She has had a breast biopsy that was be nign.) Additional Past Surgical History / Comment(s): Partial thyroidectomy Past Psychological History: No Psychological Hx Reported Smoking Status: Never smoker Past Alcohol Use History: None Reported Past Drug Use History: None Reported Medications and Allergies Home Medications Medication Instructions Recorded Confirmed Type Aspirin EC [Ecotrin Low Dose] 81 mg PO DAILY 02/04/20 02/04/20 History Allergies Allergy/AdvReac Type Severity Reaction Status Date / Time No Known Allergies Allergy Verified 02/04/20 17:00 Exam Osteopathic Statement: *. No significant issues noted on an osteopathic structural exam other than those noted in the History and Physical/Consult. Vital Signs Temp Pulse Resp BP Pulse Ox 02/06/20 16:00 105 H 16 121/66 96 02/06/20 11:23 107 H 16 148/87 91 L 02/06/20 11:21 16 02/06/20 08:00 99.1 F 110 H 16 156/85 97 02/06/20 03:43 99.1 F 89 18 136/70 93 L 02/05/20 23:44 98.3 F 86 18 127/77 95 02/05/20 20:00 98.8 F 91 20 134/80 94 L Intake and Output 02/06/20 02/06/20 02/06/20 06:59 14:59 22:59 Intake Total 240 Output Total 120 0 0 Balance -120 240 0 Intake: Oral 240 Output: Urine 120 Stool 0 0 Other: Voiding Method Toilet Toilet Toilet # Voids 1 3 # Bowel Movements 1 Weight 122.2 kg Exam is deferred at this time. When I went to hold on her diaper to look for any bleeding, it was full of stool. Patient denies having rectal incontinence and did not know she had passed stool. Will do pelvic exam and another time. Results Result Diagrams: 02/06/20 06:55 02/06/20 06:55 Abnormal Lab Results - Last 24 Hours (Table) 02/06/20 02/06/20 Range/Units 06:55 06:55 WBC 14.8 H (3.8-10.6) k/uL RBC 3.17 L (3.80-5.40) m/uL Hgb 8.2 L (11.4-16.0) gm/dL Hct 27.2 L (34.0-46.0) % MCHC 30.2 L (31.0-37.0) g/dL Neutrophils # 13.2 H (1.3-7.7) k/uL Lymphocytes # 0.9 L (1.0-4.8) k/uL Chloride 116 H (98-107) mmol/L Carbon Dioxide 21 L (22-30) mmol/L Calcium 6.8 L (8.4-10.2) mg/dL AST 60 H (14-36) U/L ALT 50 H (4-34) U/L Alkaline Phosphatase 156 H (38-126) U/L Total Protein 5.5 L (6.3-8.2) g/dL Albumin 2.2 L (3.5-5.0) g/dL Microbiology - Last 24 Hours (Table) 02/04/20 16:13 Blood Culture Gram Stain - Preliminary Blood 02/04/20 16:13 Blood Culture - Final Blood CT scan - abdomen: report reviewed CT scan - pelvis: report reviewed Assessment and Plan (1) Pelvic mass in female Current Visit: Yes Status: Acute Code(s): R19.00 - INTRA-ABD AND PELVIC SWELLING, MASS AND LUMP, UNSP SITE SNOMED Code(s): 67858647 (2) Postmenopausal bleeding Current Visit: Yes Status: Acute Code(s): N95.0 - POSTMENOPAUSAL BLEEDING SNOMED Code(s): 11592194 Plan: Will obtain a pelvic ultrasound and CA-125 level. I will return tomorrow to complete a pelvic exam. Based on her history and the CT findings suspicious for malignancy, I would recommend referral to ARCHAEOLOGY PROFESSOR oncology for further treatment.
--- NOTE | 2020-02-06 21:24 | US ---
EXAMINATION TYPE: US pelvis complete transvag DATE OF EXAM: 02/06/2020 COMPARISON: CT CLINICAL HISTORY: large pelvic mass on CT, postmenopausal bleeding. Postmenopausal bleeding x 6 days. Hx Fibroids. . Mass seen on CT. TECHNIQUE: Transvaginal (TV) and Transabdominal (TA) . Transabdominal sonographic images of the pel vis were acquired. Transvaginal sonographic images were medically necessary to better assess the fol lowing anatomy: Ovaries Date of LMP: When patient was in her 40s. EXAM MEASUREMENTS: Uterus: Not clearly defined. Possible uterine margins: 16.7 x 12.2 x 11.9 cm. Endometrial Stripe: Not well seen. Possible margins measured at 4.65 cm Right Ovary: Not definitely seen. Left Ovary: Not definitely seen. 1. Uterus: Appears enlarged and heterogeneous. Hyperechoic, calcified area seen midline and posterior ly: 3.2 x 3.2 x 1.6 cm. Hyperechoic area seen superiorly and to the left measurin.0 x 3.4 x 3.2 c m. 2. Endometrium: Measured at 4.65 cm. 3. Bilateral Adnexa: Hypoechoic, heterogeneous area seen in right adnexa: 7.0 x 3.6 x 4.6 cm. Hypoec hoic, heterogeneous area seen in left adnexa: 7.4 x 5.2 x 5.5 cm. 4. Posterior cul-de-sac: Hypoechoic area with anechoic component seen: 3.5 x 1.8 x 1.4 cm. This coul d possibly resemble the left ovary. Anechoic component measures: 2.4 x 1.2 x 0.7 cm. Transvaginal exam very limited due to body habitus and lesions. IMPRESSION: Markedly enlarged uterus that measures 17 cm in length with complex echogenicity in the endometrial c avity which is enlarged. There is also calcification consistent with uterine fibroids. Endometrial tu mor should be considered. Ovaries are not well evaluated. There is possible bilateral ovarian enlarge ment also..
--- NOTE | 2020-02-07 00:56 | P.PN ---
Subjective Progress Note Date: 02/06/20 Patient is a pleasant 70-year-old female came in with complaints of fever has been going on for last couple days. Poor appetite fatigue. Patient denied any dysuria although patient does have hematuria. Chest x-ray showed some bibasilar atelectasis and patient is admitted for pneumonia although patient doesn't have any significant cough or sputum production at this time. Patient was also complaining of abdominal pain in the lower abdominal quadrants in the midabdomen and right lower abdominal quadrant. My suspicion is low for appendicitis. Patient does have mildly elevated liver enzymes. Patient had elevated serum creatinine of 1.47 came down to 1.2 with IV fluids I do not have her baseline. had leukocytosis with white blood cell count of 27,000 came down to 15,000.. Cor bleed 19 was ordered patient does have elevated ferritin and elevated LDH these are inflammatory markers which are elevated in any infection that she did have relative lymphopenia which resolved. Patient also has atrial tachycardia for which patient was started on beta jorge by audiology. Patient is not being initiated on any anti-correlation at this time. Patient also has lactic acidosis which improved with IV fluids. 02/06/2020 Patient is currently sitting in the chair. Complains of generalized weakness. COVID-19 test is negative. Patient underwent CT of the abdomen pelvis which showed abnormal appearance to the uterus. Marked enlargement. Suspicious for large central hypodensity with a scattered foci of 8 worrisome for infection/endometritis. Underlying neoplasm need to be excluded in patients of this age. SCHOOL LEADER service was consulted. Otherwise patient is currently antibiotics in the form of ceftriaxone. Initial blood cultures growing gram-positive bacilli and repeat cultures will be ordered. Patient is also on Flagyl. Laboratory data showed WBC 14.8, hemoglobin 8.2 and platelets 208 Lymphocyte count is 0.9 Patient does have elevated AST ALT and alk phos and albumin is 2.2 urinalysis showed turbid with large blood and large leukocyte esterase and elevated WBCs and RBCs. Patient has been afebrile. Pulmonary is on board. Complete review of systems negative except as above. Current medications reviewed. Objective - Vital Signs Vital signs: Vital Signs Temp 99.1 F 02/06/20 08:00 Pulse 107 H 02/06/20 11:23 Resp 16 02/06/20 11:23 BP 148/87 02/06/20 11:23 Pulse Ox 91 L 02/06/20 11:23 Intake & Output 02/05/20 02/06/20 02/06/20 18:59 06:59 18:59 Intake Total 1737 240 240 Output Total 250 120 0 Balance 1487 120 240 Weight 122.2 kg Intake: Intake, IV Titration 1260 Amount Sodium Chloride 0.9% 1, 1260 000 ml @ 100 mls/hr IV . Q10H [facility] Rx#:[id number] Oral 477 240 240 Output: Urine 250 120 Stool 0 0 Other: Voiding Method Toilet Toilet Toilet # Voids 2 1 3 # Bowel Movements 0 1 - Exam PHYSICAL EXAMINATION: GENERAL: The patient is alert and oriented x3, not in any acute distress. Well developed, well nourished. HEENT: Pupils are round and equally reacting to light. EOMI. No scleral icterus. No conjunctival pallor. Normocephalic, atraumatic. No pharyngeal erythema. No thyromegaly. CARDIOVASCULAR: S1 and S2 present. No murmurs, rubs, or gallops. PULMONARY: Chest is clear to auscultation, no wheezing or crackles. ABDOMEN: Soft, mild abdominal tenderness in the suprapubic and infraumbilical area, nondistended, normoactive bowel sounds. No palpable organomegaly. MUSCULOSKELETAL: No joint swelling or deformity. EXTREMITIES: No cyanosis, clubbing, or pedal edema. NEUROLOGICAL: Gross neurological examination did not reveal any focal deficits. SKIN: No rashes. - Labs CBC & Chem 7: 02/06/20 06:55 02/06/20 06:55 Labs: Abnormal Lab Results - Last 24 Hours (Table) 02/06/20 02/06/20 Range/Units 06:55 06:55 WBC 14.8 H (3.8-10.6) k/uL RBC 3.17 L (3.80-5.40) m/uL Hgb 8.2 L (11.4-16.0) gm/dL Hct 27.2 L (34.0-46.0) % MCHC 30.2 L (31.0-37.0) g/dL Neutrophils # 13.2 H (1.3-7.7) k/uL Lymphocytes # 0.9 L (1.0-4.8) k/uL Chloride 116 H (98-107) mmol/L Carbon Dioxide 21 L (22-30) mmol/L Calcium 6.8 L (8.4-10.2) mg/dL AST 60 H (14-36) U/L ALT 50 H (4-34) U/L Alkaline Phosphatase 156 H (38-126) U/L Total Protein 5.5 L (6.3-8.2) g/dL Albumin 2.2 L (3.5-5.0) g/dL Microbiology - Last 24 Hours (Table) 02/04/20 16:13 Blood Culture Gram Stain - Preliminary Blood 02/04/20 16:13 Blood Culture - Final Blood Assessment and Plan Assessment: -Severe Sepsis most probably secondary to urinary tract infection. Patient will be continued on IV fluids and IV antibiotics Rocephin and azithromycin will be discontinued as I do not see any clear with clear evidence of pneumonia possibility of Covid 19 is low. COVID 19 negative - Large Pelvic/ Uterine mass. OOBG/CHARGE RN consulted. -Hematuria most probably secondary to UTI . -Elevated liver enzymes probably related to sepsis . -Atrial tachycardia for which patient is on beta jorge as mentioned above -Hypertension holding off antiemesis medications because of severe sepsis No pharmacologic DVT prophylaxis because of her hematuria GI prophylaxis with Pepcid1 UTI with secondary leukocytosis and constitutional symptoms, possibly early sepsis. Time with Patient: Greater than 30
--- NOTE | 2020-02-07 08:40 | P.PN ---
Subjective Progress Note Date: 02/07/20 Principal diagnosis: Large uterine mass Patient is seen and examined this morning. She states she is feeling a little bit better but is having diarrhea all the time. She denies any vaginal bleeding at this time. Pelvic ultrasound performed last night showed a significantly en larged uterus up to at least 16 cm with a significantly thickened endometrium at least 4.6 cm and probable ovarian masses. In addition CA-125 is elevated to 307. Objective - Vital Signs Vital signs: Vital Signs Temp 97.9 F 02/06/20 20:00 Pulse 102 H 02/07/20 04:00 Resp 20 02/07/20 04:00 BP 124/75 02/07/20 04:00 Pulse Ox 95 02/07/20 04:00 Intake & Output 02/06/20 02/07/20 02/07/20 18:59 06:59 18:59 Intake Total 240 Output Total 0 0 Balance 240 0 Weight 121.6 kg Intake: Oral 240 Output: Stool 0 0 Other: Voiding Method Toilet Toilet # Voids 2 1 # Bowel Movements 2 1 - Constitutional General appearance: Present: no acute distress, obese - Gastrointestinal Gastrointestinal Comment(s): Large mass palpated to above the umbilicus and encompassing most of the lower abdomen. Mild tenderness is noted. General gastrointestinal: Present: tenderness - Genitourinary Genitourinary Comment(s): Pelvic exam is deferred due to patient diarrhea. - Labs CBC & Chem 7: 02/06/20 06:55 02/06/20 06:55 Labs: Abnormal Lab Results - Last 24 Hours (Table) 02/05/20 Range/Units 07:03 CA 125 Antigen 307.9 H (0.0-30.1) U/mL Assessment and Plan Assessment: Impression is large pelvic mass with significantly thickened endometrial stripe at 4.6 cm and possible ovarian masses. In addition she has an elevated CA-125. This is all consistent with probable malignancy of either the uterus or ovaries. (1) Pelvic mass in female Current Visit: Yes Status: Acute Code(s): R19.00 - INTRA-ABD AND PELVIC SWELLING, MASS AND LUMP, UNSP SITE SNOMED Code(s): 70745979 (2) Postmenopausal bleeding Current Visit: Yes Status: Acute Code(s): N95.0 - POSTMENOPAUSAL BLEEDING SNOMED Code(s): 57486581 Plan: I recommend either outpatient evaluation by THERMAL SURFACING MACHINE OPERATOR oncology or transfer to [facility] for further care for this probable THERMAL SURFACING MACHINE OPERATOR malignancy. I recommend Dr. Osei Brock or Dr. Martell Christie at [facility]. If she is stable for discharge and outpatient follow-up is planned, I would highly recommend case management setting up an appointment for her as soon as possible after discharge. Thank you for referring this very pleasant lady.
[2020-02-07 08:58] LABS: Basophils # (A) 0.1 k/uL (0-0.2); Basophils % (A) 0 %; Eosinophils % (A) 0 %; HCT 27.6 % (34.0-46.0); HGB 8.6 gm/dL (11.4-16.0); Hypochromasia Marked; Lymphocytes # (A) 0.9 k/uL (1.0-4.8); Lymphocytes % (A) 4 %; MCH 26.4 pg (25.0-35.0); MCV 84.9 fL (80.0-100.0); Mean Platelet Volume 10.2; Monocytes # (A) 0.8 k/uL (0-1.0); Monocytes % (A) 3 %; Neutrophils # (A) 22.1 k/uL (1.3-7.7); Neutrophils % (A) 90 %; Platelet Count 140 k/uL (150-450); RBC 3.25 m/uL (3.80-5.40); WBC 24.5 k/uL (3.8-10.6)
[2020-02-07] MEDS: METOPROLOL TARTRATE 25 MG TAB PO SCH ×2 (09:28→21:05)
[2020-02-07] MEDS: ASPIRIN 81 MG PO SCH (09:28)
[2020-02-07] MEDS: SODIUM CHLORIDE 0.9% 1,000 ML IV SCH (09:28)
[2020-02-07] MEDS: metroNIDAZOLE-NS PMX 500 MG in SALINE 1 100ML.BAG IVPB SCH ×2 (09:29→17:49)
[2020-02-07] MEDS: PANTOPRAZOLE 40 MG/10 ML VIAL IV SCH (09:29)
[2020-02-07] MEDS: FAMOTIDINE 20 MG TAB PO SCH (09:29)
[2020-02-07] MEDS: ENOXAPARIN 40 MG/0.4 ML SYRINGE SQ SCH (09:29)
[2020-02-07 09:39] LABS: Calcium 7.3 mg/dL (8.4-10.2); Potassium 3.6 mmol/L (3.5-5.1)
[2020-02-07 11:12] LABS: Albumin 2.3 g/dL (3.5-5.0); Total Bilirubin 1.1 mg/dL (0.2-1.3); Total Protein 5.8 g/dL (6.3-8.2)
--- NOTE | 2020-02-07 13:48 | P.PN ---
Subjective Progress Note Date: 02/07/20 Principal diagnosis: UTI, leukocytosis, early sepsis, abdominal pain This is a 69-year-old -Malagasy female patient who has been feeling sick and having according to her cold-like symptoms for the past 1 week. She was having some chills. She was having poor appetite. She was not sure if she was having real fever but she thought that she was feeling feverish. This has been going on for almost a week. No significant shortness of breath. No cough or sputum production. Denied having any nausea vomiting or abdominal pain. No dysuria. She reported loss and energy and appetite and she was getting progressively more weak. She had a fall in the kitchen and she attributed this to have diminished oral intake and loss in balance. No syncope. No exposure to coronavirus Covid 19. The patient came into the hospital and the patient had a fever of 11.2. The patient also had leukocytosis. Chest x-rays revealed no significant acute abnormalities. The patient had abnormal LFTs. The serum creatinine was elevated at 1.47 and the patient was started on IV fluids in the subsequent creatinine came back at 1.2. The patient was started on Rocephin and Zithromax and the patient was admitted to the hospital and a pulmonary consultation was requested. She denies having any abdominal pain. She is having some tenderness in the right upper quadrant area. No history of any cholelithiasis. White cell count was 27.4 at time of admission is currently down to 15.4. Ultrasound of the right upper quadrant and gallbladder disease in progress. Coronavirus Covid 19 testing is also in progress. The urinalysis came back later on to be quite abnormal. Despite absence of any dysuria. CO2 emergency, the patient's white cell count and the UA was above 182 with white cell clumps and protein. On 02/06/2020 patient seen in follow-up on selective care unit. She states she is just not feeling good, her abdominal pain is improved, denies any nausea or vomiting, denies any shortness of breath, no pulmonary symptoms, no cough, congestion, low-grade fever today, 99.1, urinalysis came back positive, patient was started on IV Rocephin, last night one of the blood cultures showed gram- positive bacilli, final cultures pending, patient was started on vancomycin, [facility] will can probably stop start the patient on Flagyl. Today's labs have been reviewed, with no cell count is 14.8, hemoglobin is 8.2, renal profile has improved with hydration, LFTs are improving, progressive treatment candidate positive at 48. COVID 19 negative. On 02/07/2020 patient seen in follow-up on selective care unit, no worsening dyspnea, lung sounds are clear, abdominal pain has improved, she continues on any diuretics for possibly urinary tract infection, urine culture has not been sent, but urinalysis showed evidence of infection. She continues on Rocephin and Flagyl, he has no primary complaints, room air pulse ox is 90-95%, hemodynamically stable, slightly tachycardic at times, but for the most part her heart rate is better controlled, respirations are even and nonlabored. She's been afebrile. No abdominal discomfort, pelvic and transvaginal ultrasound have been noted, RADIO STATION MANAGER service saw the patient and recommended transfer to the [facility] for further workup for possibility of uterine mass, CEA 125 was elevated at 307 Objective - Vital Signs Vital signs: Vital Signs Temp 97.9 F 02/06/20 20:00 Pulse 86 02/07/20 12:00 Resp 16 02/07/20 12:00 BP 124/80 02/07/20 12:00 Pulse Ox 92 L 02/07/20 12:00 Intake & Output 02/06/20 02/07/20 02/07/20 18:59 06:59 18:59 Intake Total 240 125 Output Total 0 0 Balance 240 0 125 Weight 121.6 kg Intake: Oral 240 125 Output: Stool 0 0 Other: Voiding Method Toilet Toilet Toilet # Voids 2 1 1 # Bowel Movements 2 1 1 - Exam GENERAL EXAM: Alert, very pleasant, room air pulse ox is 91% -Malagasy female, comfortable in no apparent distress. HEAD: Normocephalic/atraumatic. EYES: Normal reaction of pupils, equal size. Conjunctiva pink, sclera white. NOSE: Clear with pink turbinates. THROAT: No erythema or exudates. NECK: No masses, no JVD, no thyroid enlargement, no adenopathy. CHEST: No chest wall deformity. Symmetrical expansion. LUNGS: Equal air entry with no crackles, wheeze, rhonchi or dullness. CVS: Regular rate and rhythm, normal S1 and S2, no gallops, no murmurs, no rubs ABDOMEN: Soft, nontender. No hepatosplenomegaly, normal bowel sounds, no guarding or rigidity. EXTREMITIES: No clubbing, no edema, no cyanosis, 2+ pulses and upper and lower extremities. MUSCULOSKELETAL: Muscle strength and tone normal. SPINE: No scoliosis or deformity SKIN: No rashes CENTRAL NERVOUS SYSTEM: Alert and oriented -3. No focal deficits, tone is normal in all 4 extremities. PSYCHIATRIC: Alert and oriented -3. Appropriate affect. Intact judgment and insight. - Labs CBC & Chem 7: 02/07/20 08:16 02/07/20 08:16 Labs: Abnormal Lab Results - Last 24 Hours (Table) 02/05/20 02/07/20 02/07/20 Range/Units 07:03 08:16 08:16 WBC 24.5 H (3.8-10.6) k/uL RBC 3.25 L (3.80-5.40) m/uL Hgb 8.6 L (11.4-16.0) gm/dL Hct 27.6 L (34.0-46.0) % Plt Count 140 L (150-450) k/uL Neutrophils # 22.1 H (1.3-7.7) k/uL Lymphocytes # 0.9 L (1.0-4.8) k/uL Chloride 114 H (98-107) mmol/L Carbon Dioxide 17 L (22-30) mmol/L Glucose 106 H (74-99) mg/dL Calcium 7.3 L (8.4-10.2) mg/dL AST 74 H (14-36) U/L ALT 50 H (4-34) U/L Alkaline Phosphatase 212 H (38-126) U/L Total Protein 5.8 L (6.3-8.2) g/dL Albumin 2.3 L (3.5-5.0) g/dL CA 125 Antigen 307.9 H (0.0-30.1) U/mL Microbiology - Last 24 Hours (Table) 02/06/20 06:55 Blood Culture - Preliminary Blood No Growth after 24 hours Assessment and Plan Plan: 1 UTI with secondary leukocytosis and constitutional symptoms, possibly early sepsis. 2 abnormal LFTs with some right upper quadrant tenderness. Consider cholecystitis 3 leukocytosis, improving secondary to above 4 sinus tachycardia 5 hypertension 6 Covid 19 ruled out 7 uterine enlargement with the possibility of infection/endometriosis, or neoplasm with elevated CA-125 marker Plan: Continue current antibiotics, RADIO STATION MANAGER service consultation note was reviewed, CA-125 level has come back elevated at 307, raising possibility of malignancy, and the recommendation was to transfer the patient to the [facility]. Discussed the case with the hospitalist service, and the patient. We will arrange for transfer to the [facility]. Continue with broad-spectrum antibiotics. I performed a history & physical examination of the patient and discussed their management with my nurse practitioner, Lilly Ortiz. I reviewed the nurse practitioner's note and agree with the documented findings and plan of care. Lung sounds are positive for diminished breath sounds. The findings and the impression was discussed with the patient. I attest to the documentation by the nurse practitioner. Time with Patient: Less than 30
--- NOTE | 2020-02-07 23:44 | P.PN ---
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 Poor appetite fatigue. Patient denied any dysuria although patient does have hematuria. Chest x-ray showed some bibasilar atelectasis and patient is admitted for pneumonia although patient doesn't have any significant cough or sputum production at this time. Patient was also complaining of abdominal pain in the lower abdominal quadrants in the midabdomen and right lower abdominal quadrant. My suspicion is low for appendicitis. Patient does have mildly elevated liver enzymes. Patient had elevated serum creatinine of 1.47 came down to 1.2 with IV fluids I do not have her baseline. had leukocytosis with white blood cell count of 27,000 came down to 15,000.. Cor bleed 19 was ordered patient does have elevated ferritin and elevated LDH these are inflammatory markers which are elevated in any infection that she did have relative lymphopenia which resolved. Patient also has atrial tachycardia for which patient was started on beta jorge by audiology. Patient is not being initiated on any anti-correlation at this time. Patient also has lactic acidosis which improved with IV fluids. 02/06/2020 Patient is currently sitting in the chair. Complains of generalized weakness. COVID-19 test is negative. Patient underwent CT of the abdomen pelvis which showed abnormal appearance to the uterus. Marked enlargement. Suspicious for large central hypodensity with a scattered foci of 8 worrisome for infection/endometritis. Underlying neoplasm need to be excluded in patients of this age. AIRFIELD ENGINEER OFFICER service was consulted. Otherwise patient is currently antibiotics in the form of ceftriaxone. Initial blood cultures growing gram-positive bacilli and repeat cultures will be ordered. Patient is also on Flagyl. Laboratory data showed WBC 14.8, hemoglobin 8.2 and platelets 208 Lymphocyte count is 0.9 Patient does have elevated AST ALT and alk phos and albumin is 2.2 urinalysis showed turbid with large blood and large leukocyte esterase and elevated WBCs and RBCs. Patient has been afebrile. Pulmonary is on board. 02/07/2020 Patient is currently lying in the bed comfortably. Feels generally weak. Diarrhea improved. Denied any complaints of chest pain. No worsening shortness of breath. Patient states that her abdominal pain is better Today. Patient is being continued on antibiotics in the form of ceftriaxone and Flagyl.. Cardiogram IV hydration and heart rate is better controlled. Patient had ultrasound of the pelvis and transvaginal showed uterus is enlarged and h eterogenous and markedly enlarged. Also calcification consistent with uterine fibroids. Endometrial tumor should be considered. Possible bilateral ovarian enlargement.. Laboratory data showed WBC count increased to 24.7 and hemoglobin is at 8.6 platelets 140 BUN 15 and creatinine 1.0 Calcium 7.3 AST 74, ALT 50, alk phos 212, albumin 5.8 CA-125 3 was 7.9 COVID-19 PCR negative. Patient has been afebrile today. Blood cultures positive for anaerobic gram-positive bacilli Pulmonary and AIRFIELD ENGINEER OFFICER is following. Discussed with the [facility] transfer team at [place] for further management of endometrial and possible ovarian masses. Patient will be transferred to [facility] once the bed is available. Complete review of systems negative except as above. Current medications reviewed. Objective - Vital Signs Vital signs: Vital Signs Temp 97.9 F 02/06/20 20:00 Pulse 91 02/07/20 16:00 Resp 16 02/07/20 16:00 BP 155/92 02/07/20 16:00 Pulse Ox 95 02/07/20 16:00 Intake & Output 02/07/20 02/07/20 02/08/20 06:59 18:59 06:59 Intake Total 375 Output Total 0 0 Balance 0 375 Weight 121.6 kg Intake: Oral 375 Output: Stool 0 0 Other: Voiding Method Toilet Toilet # Voids 1 2 # Bowel Movements 1 1 - Exam PHYSICAL EXAMINATION: GENERAL: The patient is alert and oriented x3, not in any acute distress. Well developed, well nourished. HEENT: Pupils are round and equally reacting to light. EOMI. No scleral icterus. No conjunctival pallor. Normocephalic, atraumatic. No pharyngeal erythema. No thyromegaly. CARDIOVASCULAR: S1 and S2 present. No murmurs, rubs, or gallops. PULMONARY: Chest is clear to auscultation, no wheezing or crackles. ABDOMEN: Soft, mild abdominal tenderness in the suprapubic and infraumbilical area, nondistended, normoactive bowel sounds. No palpable organomegaly. MUSCULOSKELETAL: No joint swelling or deformity. EXTREMITIES: No cyanosis, clubbing, or pedal edema. NEUROLOGICAL: Gross neurological examination did not reveal any focal deficits. SKIN: No rashes. - Labs CBC & Chem 7: 02/07/20 08:16 02/07/20 08:16 Labs: Abnormal Lab Results - Last 24 Hours (Table) 02/05/20 02/07/20 02/07/20 Range/Units 07:03 08:16 08:16 WBC 24.5 H (3.8-10.6) k/uL RBC 3.25 L (3.80-5.40) m/uL Hgb 8.6 L (11.4-16.0) gm/dL Hct 27.6 L (34.0-46.0) % Plt Count 140 L (150-450) k/uL Neutrophils # 22.1 H (1.3-7.7) k/uL Lymphocytes # 0.9 L (1.0-4.8) k/uL Chloride 114 H (98-107) mmol/L Carbon Dioxide 17 L (22-30) mmol/L Glucose 106 H (74-99) mg/dL Calcium 7.3 L (8.4-10.2) mg/dL AST 74 H (14-36) U/L ALT 50 H (4-34) U/L Alkaline Phosphatase 212 H (38-126) U/L Total Protein 5.8 L (6.3-8.2) g/dL Albumin 2.3 L (3.5-5.0) g/dL CA 125 Antigen 307.9 H (0.0-30.1) U/mL Microbiology - Last 24 Hours (Table) 02/06/20 06:55 Blood Culture - Preliminary Blood No Growth after 24 hours Assessment and Plan Assessment: -Severe Sepsis most probably secondary to urinary tract infection. Patient will be continued on IV fluids and IV antibiotics Rocephin and azithromycin will be discontinued as I do not see any clear with clear evidence of pneumonia possibility of Covid 19 is low. COVID 19 negative - Large Pelvic/ Uterine mass. OOBG/CONSTRUCTION EQUIPMENT MECHANIC HELPER is following. Pending transfer to [facility]. -Hematuria most probably secondary to UTI . -Elevated liver enzymes probably related to sepsis . -Atrial tachycardia for which patient is on beta jorge as mentioned above -Hypertension holding off antiemesis medications because of severe sepsis No pharmacologic DVT prophylaxis because of her hematuria GI prophylaxis with Pepcid1 UTI with secondary leukocytosis and constitutional symptoms, possibly early sepsis. Time with Patient: Greater than 30
[2020-02-08] MEDS: SODIUM CHLORIDE 0.9% 1,000 ML IV SCH ×2 (00:25→06:40)
[2020-02-08] MEDS: metroNIDAZOLE-NS PMX 500 MG in SALINE 1 100ML.BAG IVPB SCH ×3 (00:38→17:27)
[2020-02-08 07:48] LABS: Basophils # (A) 0.1 k/uL (0-0.2); Basophils % (A) 0 %; Eosinophils # (A) 0.2 k/uL (0-0.7); Eosinophils % (A) 1 %; HCT 27.5 % (34.0-46.0); HGB 8.2 gm/dL (11.4-16.0); Hypochromasia Marked; Lymphocytes # (A) 1.4 k/uL (1.0-4.8); Lymphocytes % (A) 8 %; MCH 25.7 pg (25.0-35.0); MCV 85.6 fL (80.0-100.0); Mean Platelet Volume 10.2; Monocytes # (A) 0.5 k/uL (0-1.0); Monocytes % (A) 3 %; Neutrophils # (A) 15.8 k/uL (1.3-7.7); Neutrophils % (A) 85 %; Platelet Count 124 k/uL (150-450); RBC 3.21 m/uL (3.80-5.40); RDW 15.5 % (11.5-15.5); WBC 18.5 k/uL (3.8-10.6)
[2020-02-08 08:03] LABS: Albumin 2.2 g/dL (3.5-5.0); Calcium 7.4 mg/dL (8.4-10.2); Potassium 3.6 mmol/L (3.5-5.1); Total Bilirubin 0.7 mg/dL (0.2-1.3); Total Protein 5.8 g/dL (6.3-8.2)
[2020-02-08] MEDS: PANTOPRAZOLE 40 MG/10 ML VIAL IV SCH (09:08)
[2020-02-08] MEDS: FAMOTIDINE 20 MG TAB PO SCH (09:08)
[2020-02-08] MEDS: ASPIRIN 81 MG PO SCH (09:08)
[2020-02-08] MEDS: METOPROLOL TARTRATE 25 MG TAB PO SCH ×2 (09:08→20:48)
[2020-02-08] MEDS: ENOXAPARIN 40 MG/0.4 ML SYRINGE SQ SCH (09:08)
--- NOTE | 2020-02-08 23:48 | P.PN ---
Subjective Progress Note Date: 02/08/20 Principal diagnosis: Suspected endometrial malignancy Patient is a pleasant 70-year-old female came in with complaints of fever has been going on for last couple days. Poor appetite fatigue. Patient denied any dysuria although patient does have hematuria. Chest x-ray showed some bibasilar atelectasis and patient is admitted for pneumonia although patient doesn't have any significant cough or sputum production at this time. Patient was also complaining of abdominal pain in the lower abdominal quadrants in the midabdomen and right lower abdominal quadrant. My suspicion is low for appendicitis. Patient does have mildly elevated liver enzymes. Patient had elevated serum creatinine of 1.47 came down to 1.2 with IV fluids I do not have her baseline. had leukocytosis with white blood cell count of 27,000 came down to 15,000.. Cor bleed 19 was ordered patient does have elevated ferritin and elevated LDH these are inflammatory markers which are elevated in any infection that she did have relative lymphopenia which resolved. Patient also has atrial tachycardia for which patient was started on beta jorge by audiology. Patient is not being initiated on any anti-correlation at this time. Patient also has lactic acidosis which improved with IV fluids. 02/06/2020 Patient is currently sitting in the chair. Complains of generalized weakness. COVID-19 test is negative. Patient underwent CT of the abdomen pelvis which showed abnormal appearance to the uterus. Marked enlargement. Suspicious for large central hypodensity with a scattered foci of 8 worrisome for infection/endometritis. Underlying neoplasm need to be excluded in patients of this age. SURVEY ASSOCIATE service was consulted. Otherwise patient is currently antibiotics in the form of ceftriaxone. Initial blood cultures growing gram-positive bacilli and repeat cultures will be ordered. Patient is also on Flagyl. Laboratory data showed WBC 14.8, hemoglobin 8.2 and platelets 208 Lymphocyte count is 0.9 Patient does have elevated AST ALT and alk phos and albumin is 2.2 urinalysis showed turbid with large blood and large leukocyte esterase and elevated WBCs and RBCs. Patient has been afebrile. Pulmonary is on board. 02/07/2020 Patient is currently lying in the bed comfortably. Feels generally weak. Diarrhea improved. Denied any complaints of chest pain. No worsening shortness of breath. Patient states that her abdominal pain is better Today. Patient is being continued on antibiotics in the form of ceftriaxone and Flagyl.. Cardiogram IV hydration and heart rate is better controlled. Patient had ultrasound of the pelvis and transvaginal showed uterus is enlarged and h eterogenous and markedly enlarged. Also calcification consistent with uterine fibroids. Endometrial tumor should be considered. Possible bilateral ovarian enlargement.. Laboratory data showed WBC count increased to 24.7 and hemoglobin is at 8.6 platelets 140 BUN 15 and creatinine 1.0 Calcium 7.3 AST 74, ALT 50, alk phos 212, albumin 5.8 CA-125 3 was 7.9 COVID-19 PCR negative. Patient has been afebrile today. Blood cultures positive for anaerobic gram-positive bacilli Pulmonary and SURVEY ASSOCIATE is following. Discussed with the [facility] transfer team at [place] for further management of endometrial and possible ovarian masses. Patient will be transferred to [facility] once the bed is available. 02/08/2020 Patient is currently lying in bed comfortably. Patient states that her abdominal comfort discomfort is better today. Still having diarrhea. Repeat blood cultures have been negative so far. Patient is being continued on antibiotics in the form of ceftriaxone and Flagyl. Patient has been afebrile. Leukocytosis improving to 18.5 today. Hemoglobin 8.2 and platelets 124, liver enzymes are still elevated. Patient is awaiting to be transferred to [facility] for further management of uterine mass. Complete review of systems negative except as above. Current medications reviewed. Objective - Vital Signs Vital signs: Vital Signs Temp 98.7 F 02/08/20 19:53 Pulse 94 02/08/20 19:53 Resp 20 02/08/20 20:21 BP 150/84 02/08/20 19:53 Pulse Ox 96 02/08/20 19:53 Intake & Output 02/08/20 02/08/20 02/09/20 06:59 18:59 06:59 Intake Total 100 80 Output Total 200 Balance 100 -120 Weight 122.5 kg Intake: Intake, IV Titration 100 Amount cefTRIAXone 1 gm In 100 Sodium Chloride 0.9% 50 ml @ 100 mls/hr IVPB [facility] Rx#:[id number] Oral 80 Output: Urine 200 Other: Voiding Method Toilet Toilet Toilet # Voids 1 1 - Exam PHYSICAL EXAMINATION: GENERAL: The patient is alert and oriented x3, not in any acute distress. Well developed, well nourished. HEENT: Pupils are round and equally reacting to light. EOMI. No scleral icterus. No conjunctival pallor. Normocephalic, atraumatic. No pharyngeal erythema. No thyromegaly. CARDIOVASCULAR: S1 and S2 present. No murmurs, rubs, or gallops. PULMONARY: Chest is clear to auscultation, no wheezing or crackles. ABDOMEN: Soft, mild abdominal tenderness in the suprapubic and infraumbilical area, nondistended, normoactive bowel sounds. No palpable organomegaly. MUSCULOSKELETAL: No joint swelling or deformity. EXTREMITIES: No cyanosis, clubbing, or pedal edema. NEUROLOGICAL: Gross neurological examination did not reveal any focal deficits. SKIN: No rashes. - Labs CBC & Chem 7: 02/08/20 06:50 02/08/20 06:50 Labs: Abnormal Lab Results - Last 24 Hours (Table) 02/08/20 02/08/20 Range/Units 06:50 06:50 WBC 18.5 H (3.8-10.6) k/uL RBC 3.21 L (3.80-5.40) m/uL Hgb 8.2 L (11.4-16.0) gm/dL Hct 27.5 L (34.0-46.0) % MCHC 30.0 L (31.0-37.0) g/dL Plt Count 124 L (150-450) k/uL Neutrophils # 15.8 H (1.3-7.7) k/uL Chloride 114 H (98-107) mmol/L Carbon Dioxide 18 L (22-30) mmol/L Glucose 115 H (74-99) mg/dL Calcium 7.4 L (8.4-10.2) mg/dL AST 46 H (14-36) U/L ALT 40 H (4-34) U/L Alkaline Phosphatase 167 H (38-126) U/L Total Protein 5.8 L (6.3-8.2) g/dL Albumin 2.2 L (3.5-5.0) g/dL Microbiology - Last 24 Hours (Table) 02/06/20 06:55 Blood Culture - Preliminary Blood No Growth after 48 hours 02/04/20 16:13 Blood Culture Gram Stain - Preliminary Blood Blood Culture - Preliminary Anaerobic Gm Positive [facility] Assessment and Plan Assessment: -Severe Sepsis most probably secondary to urinary tract infection. - Gram-positive bacilli bacteremia possible source could be genitourinary system. Patient will be continued on IV fluids and IV antibiotics Rocephin and azithromycin will be discontinued as I do not see any clear with clear evidence of pneumonia possibility of Covid 19 is low. COVID 19 negative - Large Pelvic/ Uterine mass. OOBG/SHIFT SUPERVISOR MELTING is following. Pending transfer to [facility]. -Hematuria most probably secondary to UTI . -Elevated liver enzymes probably related to sepsis . -Atrial tachycardia for which patient is on beta jorge as mentioned above -Hypertension holding off antiemesis medications because of severe sepsis No pharmacologic DVT prophylaxis because of her hematuria GI prophylaxis with Pepcid1 UTI with secondary leukocytosis and constitutional symptoms, possibly early sepsis. Time with Patient: Greater than 30
[2020-02-09] MEDS: metroNIDAZOLE-NS PMX 500 MG in SALINE 1 100ML.BAG IVPB SCH ×4 (00:38→23:25)
[2020-02-09] MEDS: SODIUM CHLORIDE 0.9% 1,000 ML IV SCH ×2 (06:20→23:26)
[2020-02-09 08:17] LABS: Basophils % (A) 0 %; Eosinophils # (A) 0.2 k/uL (0-0.7); Eosinophils % (A) 1 %; HCT 27.3 % (34.0-46.0); HGB 8.1 gm/dL (11.4-16.0); Hypochromasia Marked; Lymphocytes # (A) 1.8 k/uL (1.0-4.8); Lymphocytes % (A) 11 %; MCH 25.1 pg (25.0-35.0); MCHC 29.8 g/dL (31.0-37.0); MCV 84.1 fL (80.0-100.0); Mean Platelet Volume 10.4; Monocytes # (A) 0.5 k/uL (0-1.0); Monocytes % (A) 3 %; Neutrophils # (A) 13.8 k/uL (1.3-7.7); Neutrophils % (A) 83 %; Platelet Count 167 k/uL (150-450); RBC 3.25 m/uL (3.80-5.40); RDW 15.5 % (11.5-15.5); WBC 16.7 k/uL (3.8-10.6)
[2020-02-09 08:28] LABS: Calcium 7.5 mg/dL (8.4-10.2); Potassium 3.5 mmol/L (3.5-5.1)
[2020-02-09] MEDS: ASPIRIN 81 MG PO SCH (08:46)
[2020-02-09] MEDS: FAMOTIDINE 20 MG TAB PO SCH (08:46)
[2020-02-09] MEDS: ENOXAPARIN 40 MG/0.4 ML SYRINGE SQ SCH (08:46)
[2020-02-09] MEDS: METOPROLOL TARTRATE 25 MG TAB PO SCH ×2 (08:46→20:04)
[2020-02-09] MEDS: PANTOPRAZOLE 40 MG/10 ML VIAL IV SCH (08:47)
[2020-02-10] MEDS: ACETAMINOPHEN TAB 325 MG TAB PO PRN ×2 (06:16→19:57)
[2020-02-10 08:06] LABS: Basophils % (A) 0 %; Calcium 7.6 mg/dL (8.4-10.2); Eosinophils # (A) 0.2 k/uL (0-0.7); Eosinophils % (A) 1 %; HGB 8.2 gm/dL (11.4-16.0); Hypochromasia Marked; Lymphocytes # (A) 1.9 k/uL (1.0-4.8); Lymphocytes % (A) 11 %; MCH 25.5 pg (25.0-35.0); MCHC 30.3 g/dL (31.0-37.0); MCV 84.2 fL (80.0-100.0); Mean Platelet Volume 10.4; Monocytes # (A) 0.5 k/uL (0-1.0); Monocytes % (A) 3 %; Neutrophils # (A) 14.1 k/uL (1.3-7.7); Neutrophils % (A) 82 %; Platelet Count 202 k/uL (150-450); Potassium 3.5 mmol/L (3.5-5.1); RBC 3.21 m/uL (3.80-5.40); RDW 15.7 % (11.5-15.5); WBC 17.1 k/uL (3.8-10.6)
[2020-02-10] MEDS: ASPIRIN 81 MG PO SCH (10:32)
[2020-02-10] MEDS: METOPROLOL TARTRATE 25 MG TAB PO SCH ×2 (10:32→19:57)
[2020-02-10] MEDS: FAMOTIDINE 20 MG TAB PO SCH (10:32)
[2020-02-10] MEDS: PANTOPRAZOLE 40 MG/10 ML VIAL IV SCH (10:33)
[2020-02-10] MEDS: metroNIDAZOLE-NS PMX 500 MG in SALINE 1 100ML.BAG IVPB SCH ×3 (10:33→23:20)
[2020-02-10] MEDS: ENOXAPARIN 40 MG/0.4 ML SYRINGE SQ SCH (10:37)
[2020-02-10] MEDS ORDERED: POTASSIUM CHLORIDE ER 20 MEQ TAB.ER PO STA (14:28)
[2020-02-10] MEDS: SODIUM CHLORIDE 0.9% 1,000 ML IV SCH (16:57)
--- NOTE | 2020-02-11 00:10 | P.PN ---
Subjective Progress Note Date: 02/09/20 Principal diagnosis: Suspected endometrial malignancy Patient is a pleasant 70-year-old female came in with complaints of fever has been going on for last couple days. Poor appetite fatigue. Patient denied any dysuria although patient does have hematuria. Chest x-ray showed some bibasilar atelectasis and patient is admitted for pneumonia although patient doesn't have any significant cough or sputum production at this time. Patient was also complaining of abdominal pain in the lower abdominal quadrants in the midabdomen and right lower abdominal quadrant. My suspicion is low for appendicitis. Patient does have mildly elevated liver enzymes. Patient had elevated serum creatinine of 1.47 came down to 1.2 with IV fluids I do not have her baseline. had leukocytosis with white blood cell count of 27,000 came down to 15,000.. Cor bleed 19 was ordered patient does have elevated ferritin and elevated LDH these are inflammatory markers which are elevated in any infection that she did have relative lymphopenia which resolved. Patient also has atrial tachycardia for which patient was started on beta jorge by audiology. Patient is not being initiated on any anti-correlation at this time. Patient also has lactic acidosis which improved with IV fluids. 02/06/2020 Patient is currently sitting in the chair. Complains of generalized weakness. COVID-19 test is negative. Patient underwent CT of the abdomen pelvis which showed abnormal appearance to the uterus. Marked enlargement. Suspicious for large central hypodensity with a scattered foci of 8 worrisome for infection/endometritis. Underlying neoplasm need to be excluded in patients of this age. MANAGER PROCUREMENT service was consulted. Otherwise patient is currently antibiotics in the form of ceftriaxone. Initial blood cultures growing gram-positive bacilli and repeat cultures will be ordered. Patient is also on Flagyl. Laboratory data showed WBC 14.8, hemoglobin 8.2 and platelets 208 Lymphocyte count is 0.9 Patient does have elevated AST ALT and alk phos and albumin is 2.2 urinalysis showed turbid with large blood and large leukocyte esterase and elevated WBCs and RBCs. Patient has been afebrile. Pulmonary is on board. 02/07/2020 Patient is currently lying in the bed comfortably. Feels generally weak. Diarrhea improved. Denied any complaints of chest pain. No worsening shortness of breath. Patient states that her abdominal pain is better Today. Patient is being continued on antibiotics in the form of ceftriaxone and Flagyl.. Cardiogram IV hydration and heart rate is better controlled. Patient had ultrasound of the pelvis and transvaginal showed uterus is enlarged and h eterogenous and markedly enlarged. Also calcification consistent with uterine fibroids. Endometrial tumor should be considered. Possible bilateral ovarian enlargement.. Laboratory data showed WBC count increased to 24.7 and hemoglobin is at 8.6 platelets 140 BUN 15 and creatinine 1.0 Calcium 7.3 AST 74, ALT 50, alk phos 212, albumin 5.8 CA-125 3 was 7.9 COVID-19 PCR negative. Patient has been afebrile today. Blood cultures positive for anaerobic gram-positive bacilli Pulmonary and MANAGER PROCUREMENT is following. Discussed with the [facility] transfer team at [place] for further management of endometrial and possible ovarian masses. Patient will be transferred to [facility] once the bed is available. 02/08/2020 Patient is currently lying in bed comfortably. Patient states that her abdominal comfort discomfort is better today. Still having diarrhea. Repeat blood cultures have been negative so far. Patient is being continued on antibiotics in the form of ceftriaxone and Flagyl. Patient has been afebrile. Leukocytosis improving to 18.5 today. Hemoglobin 8.2 and platelets 124, liver enzymes are still elevated. Patient is awaiting to be transferred to [facility] for further management of uterine mass. 02/09/2020 Patient is currently lying in the bed but is weak and lethargic. Still having leukocytosis and is being continued on antibiotics of ceftriaxone and Flagyl. Lower abdominal discomfort is still present. Patient does have diarrhea but seems to be improved as per patient. Patient denied any complaints of chest pain or shortness of breath. No fever no chills. Patient does have nausea no episodes of vomiting. Liver enzymes are trending down slowly. Complete review of systems negative except as above. Current medications reviewed. Objective - Vital Signs Vital signs: Vital Signs Temp 98.5 F 02/09/20 08:00 Pulse 84 02/09/20 16:00 Resp 18 02/09/20 16:00 BP 143/91 02/09/20 16:00 Pulse Ox 95 02/09/20 16:00 Intake & Output 02/09/20 02/09/20 02/10/20 06:59 18:59 05:59 Intake Total 400 Output Total 750 Balance -350 Weight 123.4 kg Intake: Oral 400 Output: Urine 750 Other: Voiding Method Toilet Toilet # Voids 1 - Exam PHYSICAL EXAMINATION: GENERAL: The patient is alert and oriented x3, not in any acute distress. Well developed, well nourished. HEENT: Pupils are round and equally reacting to light. EOMI. No scleral icterus. No conjunctival pallor. Normocephalic, atraumatic. No pharyngeal erythema. No thyromegaly. CARDIOVASCULAR: S1 and S2 present. No murmurs, rubs, or gallops. PULMONARY: Chest is clear to auscultation, no wheezing or crackles. ABDOMEN: Soft, mild abdominal tenderness in the suprapubic and infraumbilical area, nondistended, normoactive bowel sounds. No palpable organomegaly. MUSCULOSKELETAL: No joint swelling or deformity. EXTREMITIES: No cyanosis, clubbing, or pedal edema. NEUROLOGICAL: Gross neurological examination did not reveal any focal deficits. SKIN: No rashes. - Labs CBC & Chem 7: 02/10/20 07:18 02/10/20 21:12 Labs: Abnormal Lab Results - Last 24 Hours (Table) 02/09/20 02/09/20 Range/Units 07:22 07:22 WBC 16.7 H (3.8-10.6) k/uL RBC 3.25 L (3.80-5.40) m/uL Hgb 8.1 L (11.4-16.0) gm/dL Hct 27.3 L (34.0-46.0) % MCHC 29.8 L (31.0-37.0) g/dL Neutrophils # 13.8 H (1.3-7.7) k/uL Chloride 114 H (98-107) mmol/L Glucose 101 H (74-99) mg/dL Calcium 7.5 L (8.4-10.2) mg/dL Microbiology - Last 24 Hours (Table) 02/06/20 06:55 Blood Culture - Preliminary Blood No Growth after 72 hours 02/04/20 16:13 Blood Culture Gram Stain - Final Blood Blood Culture - Final Anaerobic Gm Positive [facility] Assessment and Plan Assessment: -Severe Sepsis most probably secondary to urinary tract infection and possible abdominal source also suspected.. - Gram-positive bacilli bacteremia possible source could be genitourinary system. Patient will be continued on IV fluids and IV antibiotics Rocephin and azithromycin will be discontinued as I do not see any clear with clear evidence of pneumonia possibility of Covid 19 is low. COVID 19 negative - Large Pelvic/ Uterine mass. OOBG/CARE TEAM ASSISTANT is following. Pending transfer to [facility]. -Hematuria most probably secondary to UTI . -Elevated liver enzymes probably related to sepsis . -Atrial tachycardia for which patient is on beta jorge as mentioned above -Hypertension holding off antiemesis medications because of severe sepsis No pharmacologic DVT prophylaxis because of her hematuria GI prophylaxis with Pepcid1 UTI with secondary leukocytosis and constitutional symptoms, possibly early sepsis. Time with Patient: Greater than 30
--- NOTE | 2020-02-11 00:11 | P.PN ---
Subjective Progress Note Date: 02/10/20 Principal diagnosis: Suspected endometrial malignancy Patient is a pleasant 70-year-old female came in with complaints of fever has been going on for last couple days. Poor appetite fatigue. Patient denied any dysuria although patient does have hematuria. Chest x-ray showed some bibasilar atelectasis and patient is admitted for pneumonia although patient doesn't have any significant cough or sputum production at this time. Patient was also complaining of abdominal pain in the lower abdominal quadrants in the midabdomen and right lower abdominal quadrant. My suspicion is low for appendicitis. Patient does have mildly elevated liver enzymes. Patient had elevated serum creatinine of 1.47 came down to 1.2 with IV fluids I do not have her baseline. had leukocytosis with white blood cell count of 27,000 came down to 15,000.. Cor bleed 19 was ordered patient does have elevated ferritin and elevated LDH these are inflammatory markers which are elevated in any infection that she did have relative lymphopenia which resolved. Patient also has atrial tachycardia for which patient was started on beta jorge by audiology. Patient is not being initiated on any anti-correlation at this time. Patient also has lactic acidosis which improved with IV fluids. 02/06/2020 Patient is currently sitting in the chair. Complains of generalized weakness. COVID-19 test is negative. Patient underwent CT of the abdomen pelvis which showed abnormal appearance to the uterus. Marked enlargement. Suspicious for large central hypodensity with a scattered foci of 8 worrisome for infection/endometritis. Underlying neoplasm need to be excluded in patients of this age. LATEX THREAD MACHINE OPERATOR service was consulted. Otherwise patient is currently antibiotics in the form of ceftriaxone. Initial blood cultures growing gram-positive bacilli and repeat cultures will be ordered. Patient is also on Flagyl. Laboratory data showed WBC 14.8, hemoglobin 8.2 and platelets 208 Lymphocyte count is 0.9 Patient does have elevated AST ALT and alk phos and albumin is 2.2 urinalysis showed turbid with large blood and large leukocyte esterase and elevated WBCs and RBCs. Patient has been afebrile. Pulmonary is on board. 02/07/2020 Patient is currently lying in the bed comfortably. Feels generally weak. Diarrhea improved. Denied any complaints of chest pain. No worsening shortness of breath. Patient states that her abdominal pain is better Today. Patient is being continued on antibiotics in the form of ceftriaxone and Flagyl.. Cardiogram IV hydration and heart rate is better controlled. Patient had ultrasound of the pelvis and transvaginal showed uterus is enlarged and h eterogenous and markedly enlarged. Also calcification consistent with uterine fibroids. Endometrial tumor should be considered. Possible bilateral ovarian enlargement.. Laboratory data showed WBC count increased to 24.7 and hemoglobin is at 8.6 platelets 140 BUN 15 and creatinine 1.0 Calcium 7.3 AST 74, ALT 50, alk phos 212, albumin 5.8 CA-125 3 was 7.9 COVID-19 PCR negative. Patient has been afebrile today. Blood cultures positive for anaerobic gram-positive bacilli Pulmonary and LATEX THREAD MACHINE OPERATOR is following. Discussed with the [facility] transfer team at [place] for further management of endometrial and possible ovarian masses. Patient will be transferred to [facility] once the bed is available. 02/08/2020 Patient is currently lying in bed comfortably. Patient states that her abdominal comfort discomfort is better today. Still having diarrhea. Repeat blood cultures have been negative so far. Patient is being continued on antibiotics in the form of ceftriaxone and Flagyl. Patient has been afebrile. Leukocytosis improving to 18.5 today. Hemoglobin 8.2 and platelets 124, liver enzymes are still elevated. Patient is awaiting to be transferred to [facility] for further management of uterine mass. 02/09/2020 Patient is currently lying in the bed but is weak and lethargic. Still having leukocytosis and is being continued on antibiotics of ceftriaxone and Flagyl. Lower abdominal discomfort is still present. Patient does have diarrhea but seems to be improved as per patient. Patient denied any complaints of chest pain or shortness of breath. No fever no chills. Patient does have nausea no episodes of vomiting. Liver enzymes are trending down slowly. 02/10/2020 Patient is currently resting in the bed without any distress. No complaints of chest pain or shortness of the. Does have lower abdominal discomfort and diarrhea is still present. Currently on antibiotics from ceftriaxone and Flagyl. Still having significant leukocytosis at 17. Patient has been afebrile. No cough or sputum production. Denied any dysuria or hematuria. Liver enzymes are still elevated. Complete review of systems negative except as above. Current medications reviewed. Objective - Vital Signs Vital signs: Vital Signs Temp 99.2 F 02/10/20 20:00 Pulse 87 02/10/20 20:00 Resp 18 02/10/20 20:00 BP 164/95 02/10/20 20:00 Pulse Ox 95 02/10/20 20:00 Intake & Output 02/10/20 02/10/20 02/11/20 06:59 18:59 06:59 Intake Total 240 Balance 240 Weight Intake: Intake, IV Titration Amount Sodium Chloride 0.9% 1, 000 ml @ 50 mls/hr IV . Q20H [facility] Rx#:[id number] cefTRIAXone 1 gm In Sodium Chloride 0.9% 50 ml @ 100 mls/hr IVPB [facility] Rx#:[id number] metroNIDAZOLE-NS PMX 500 mg In Saline 1 100ml.bag @ 100 mls/hr IVPB Q8HR [facility] Rx#:[id number] Oral 240 Other: Voiding Method Toilet Toilet # Voids 0 # Bowel Movements 1 - Exam PHYSICAL EXAMINATION: GENERAL: The patient is alert and oriented x3, not in any acute distress. Well developed, well nourished. HEENT: Pupils are round and equally reacting to light. EOMI. No scleral icterus. No conjunctival pallor. Normocephalic, atraumatic. No pharyngeal erythema. No thyromegaly. CARDIOVASCULAR: S1 and S2 present. No murmurs, rubs, or gallops. PULMONARY: Chest is clear to auscultation, no wheezing or crackles. ABDOMEN: Soft, mild abdominal tenderness in the suprapubic and infraumbilical area, nondistended, normoactive bowel sounds. No palpable organomegaly. MUSCULOSKELETAL: No joint swelling or deformity. EXTREMITIES: No cyanosis, clubbing, or pedal edema. NEUROLOGICAL: Gross neurological examination did not reveal any focal deficits. SKIN: No rashes. - Labs CBC & Chem 7: 02/10/20 07:18 02/10/20 21:12 Labs: Abnormal Lab Results - Last 24 Hours (Table) 02/10/20 02/10/20 Range/Units 07:18 07:18 WBC 17.1 H (3.8-10.6) k/uL RBC 3.21 L (3.80-5.40) m/uL Hgb 8.2 L (11.4-16.0) gm/dL Hct 27.0 L (34.0-46.0) % MCHC 30.3 L (31.0-37.0) g/dL RDW 15.7 H (11.5-15.5) % Neutrophils # 14.1 H (1.3-7.7) k/uL Chloride 113 H (98-107) mmol/L Glucose 112 H (74-99) mg/dL Calcium 7.6 L (8.4-10.2) mg/dL Microbiology - Last 24 Hours (Table) 02/06/20 06:55 Blood Culture - Preliminary Blood No Growth after 96 hours Assessment and Plan Assessment: -Severe Sepsis most probably secondary to urinary tract infection and possible abdominal source also suspected.. - Gram-positive bacilli bacteremia possible source could be genitourinary system. Patient will be continued on IV fluids and IV antibiotics Rocephin and azithromycin will be discontinued as I do not see any clear with clear evidence of pneumonia possibility of Covid 19 is low. COVID 19 negative - Large Pelvic/ Uterine mass. OOBG/PEST CONTROL APPLICATOR is following. Pending transfer to [facility]. -Hematuria most probably secondary to UTI . -Elevated liver enzymes probably related to sepsis . -Atrial tachycardia for which patient is on beta jorge as mentioned above -Hypertension holding off antiemesis medications because of severe sepsis No pharmacologic DVT prophylaxis because of her hematuria GI prophylaxis with Pepcid1 UTI with secondary leukocytosis and constitutional symptoms, possibly early sepsis. Time with Patient: Greater than 30
[2020-02-11] MEDS: PANTOPRAZOLE 40 MG TABLET PO SCH (06:47)
[2020-02-11 08:52] LABS: Anisocytosis Slight; Basophils # (A) 0.1 k/uL (0-0.2); Basophils % (A) 0 %; Eosinophils # (A) 0.1 k/uL (0-0.7); Eosinophils % (A) 1 %; HCT 28.3 % (34.0-46.0); HGB 8.5 gm/dL (11.4-16.0); Hypochromasia Marked; Lymphocytes # (A) 1.4 k/uL (1.0-4.8); Lymphocytes % (A) 9 %; MCH 26.1 pg (25.0-35.0); Mean Platelet Volume 9.9; Monocytes # (A) 0.5 k/uL (0-1.0); Monocytes % (A) 3 %; Neutrophils # (A) 13.8 k/uL (1.3-7.7); Neutrophils % (A) 85 %; Platelet Count 201 k/uL (150-450); RBC 3.25 m/uL (3.80-5.40); WBC 16.2 k/uL (3.8-10.6)
[2020-02-11 09:12] LABS: Albumin 2.4 g/dL (3.5-5.0); Calcium 7.7 mg/dL (8.4-10.2); Potassium 3.7 mmol/L (3.5-5.1); Total Bilirubin 0.6 mg/dL (0.2-1.3); Total Protein 6.3 g/dL (6.3-8.2)
[2020-02-11] MEDS: ENOXAPARIN 40 MG/0.4 ML SYRINGE SQ SCH (09:24)
[2020-02-11] MEDS: FAMOTIDINE 20 MG TAB PO SCH (09:24)
[2020-02-11] MEDS: metroNIDAZOLE-NS PMX 500 MG in SALINE 1 100ML.BAG IVPB SCH ×3 (09:24→23:24)
[2020-02-11] MEDS: METOPROLOL TARTRATE 25 MG TAB PO SCH ×2 (09:24→20:20)
[2020-02-11] MEDS: ASPIRIN 81 MG PO SCH (09:24)
[2020-02-11] MEDS: SODIUM CHLORIDE 0.9% 1,000 ML IV SCH (13:11)
[2020-02-11 14:31] VITALS: BMI 43.2
[2020-02-11] MEDS: lisinopriL 10 MG TAB PO SCH (18:02)
[2020-02-12] MEDS: PANTOPRAZOLE 40 MG TABLET PO SCH (06:39)
[2020-02-12] MEDS: SODIUM CHLORIDE 0.9% 1,000 ML IV SCH (06:39)
[2020-02-12] MEDS: metroNIDAZOLE-NS PMX 500 MG in SALINE 1 100ML.BAG IVPB SCH ×3 (08:54→23:24)
[2020-02-12] MEDS: ASPIRIN 81 MG PO SCH (08:55)
[2020-02-12] MEDS: METOPROLOL TARTRATE 25 MG TAB PO SCH ×2 (08:55→20:18)
[2020-02-12] MEDS: FAMOTIDINE 20 MG TAB PO SCH (08:55)
[2020-02-12] MEDS: lisinopriL 10 MG TAB PO SCH (08:56)
[2020-02-12] MEDS: ENOXAPARIN 40 MG/0.4 ML SYRINGE SQ SCH (08:56)
[2020-02-13] MEDS: SODIUM CHLORIDE 0.9% 1,000 ML IV SCH ×2 (06:26→22:40)
[2020-02-13] MEDS: PANTOPRAZOLE 40 MG TABLET PO SCH (06:27)
[2020-02-13 07:54] LABS: Anisocytosis Slight; Basophils % (A) 0 %; Eosinophils # (A) 0.1 k/uL (0-0.7); Eosinophils % (A) 0 %; HCT 25.8 % (34.0-46.0); HGB 7.7 gm/dL (11.4-16.0); Hypochromasia Marked; Lymphocytes # (A) 1.6 k/uL (1.0-4.8); Lymphocytes % (A) 11 %; MCH 25.5 pg (25.0-35.0); MCHC 29.7 g/dL (31.0-37.0); MCV 85.8 fL (80.0-100.0); Mean Platelet Volume 8.7; Monocytes # (A) 0.4 k/uL (0-1.0); Monocytes % (A) 3 %; Neutrophils # (A) 12.6 k/uL (1.3-7.7); Neutrophils % (A) 84 %; Platelet Count 272 k/uL (150-450); RBC 3.01 m/uL (3.80-5.40); RDW 16.8 % (11.5-15.5); WBC 14.9 k/uL (3.8-10.6)
[2020-02-13 08:02] LABS: Calcium 7.6 mg/dL (8.4-10.2); Potassium 3.9 mmol/L (3.5-5.1)
[2020-02-13] MEDS: FAMOTIDINE 20 MG TAB PO SCH (08:50)
[2020-02-13] MEDS: ASPIRIN 81 MG PO SCH (08:50)
[2020-02-13] MEDS: ENOXAPARIN 40 MG/0.4 ML SYRINGE SQ SCH (08:50)
[2020-02-13] MEDS: METOPROLOL TARTRATE 25 MG TAB PO SCH ×2 (08:50→21:01)
[2020-02-13] MEDS: lisinopriL 10 MG TAB PO SCH (08:50)
[2020-02-13] MEDS: metroNIDAZOLE-NS PMX 500 MG in SALINE 1 100ML.BAG IVPB SCH (08:51)
--- NOTE | 2020-02-13 14:35 | P.PN ---
Subjective Progress Note Date: 02/11/20 Principal diagnosis: Suspected endometrial malignancy Patient is a pleasant 70-year-old female came in with complaints of fever has been going on for last couple days. Poor appetite fatigue. Patient denied any dysuria although patient does have hematuria. Chest x-ray showed some bibasilar atelectasis and patient is admitted for pneumonia although patient doesn't have any significant cough or sputum production at this time. Patient was also complaining of abdominal pain in the lower abdominal quadrants in the midabdomen and right lower abdominal quadrant. My suspicion is low for appendicitis. Patient does have mildly elevated liver enzymes. Patient had elevated serum creatinine of 1.47 came down to 1.2 with IV fluids I do not have her baseline. had leukocytosis with white blood cell count of 27,000 came down to 15,000.. Cor bleed 19 was ordered patient does have elevated ferritin and elevated LDH these are inflammatory markers which are elevated in any infection that she did have relative lymphopenia which resolved. Patient also has atrial tachycardia for which patient was started on beta jorge by audiology. Patient is not being initiated on any anti-correlation at this time. Patient also has lactic acidosis which improved with IV fluids. 02/06/2020 Patient is currently sitting in the chair. Complains of generalized weakness. COVID-19 test is negative. Patient underwent CT of the abdomen pelvis which showed abnormal appearance to the uterus. Marked enlargement. Suspicious for large central hypodensity with a scattered foci of 8 worrisome for infection/endometritis. Underlying neoplasm need to be excluded in patients of this age. PERINATAL BREASTFEEDING ASSISTANT service was consulted. Otherwise patient is currently antibiotics in the form of ceftriaxone. Initial blood cultures growing gram-positive bacilli and repeat cultures will be ordered. Patient is also on Flagyl. Laboratory data showed WBC 14.8, hemoglobin 8.2 and platelets 208 Lymphocyte count is 0.9 Patient does have elevated AST ALT and alk phos and albumin is 2.2 urinalysis showed turbid with large blood and large leukocyte esterase and elevated WBCs and RBCs. Patient has been afebrile. Pulmonary is on board. 02/07/2020 Patient is currently lying in the bed comfortably. Feels generally weak. Diarrhea improved. Denied any complaints of chest pain. No worsening shortness of breath. Patient states that her abdominal pain is better Today. Patient is being continued on antibiotics in the form of ceftriaxone and Flagyl.. Cardiogram IV hydration and heart rate is better controlled. Patient had ultrasound of the pelvis and transvaginal showed uterus is enlarged and h eterogenous and markedly enlarged. Also calcification consistent with uterine fibroids. Endometrial tumor should be considered. Possible bilateral ovarian enlargement.. Laboratory data showed WBC count increased to 24.7 and hemoglobin is at 8.6 platelets 140 BUN 15 and creatinine 1.0 Calcium 7.3 AST 74, ALT 50, alk phos 212, albumin 5.8 CA-125 3 was 7.9 COVID-19 PCR negative. Patient has been afebrile today. Blood cultures positive for anaerobic gram-positive bacilli Pulmonary and PERINATAL BREASTFEEDING ASSISTANT is following. Discussed with the [facility] transfer team at [place] for further management of endometrial and possible ovarian masses. Patient will be transferred to [facility] once the bed is available. 02/08/2020 Patient is currently lying in bed comfortably. Patient states that her abdominal comfort discomfort is better today. Still having diarrhea. Repeat blood cultures have been negative so far. Patient is being continued on antibiotics in the form of ceftriaxone and Flagyl. Patient has been afebrile. Leukocytosis improving to 18.5 today. Hemoglobin 8.2 and platelets 124, liver enzymes are still elevated. Patient is awaiting to be transferred to [facility] for further management of uterine mass. 02/09/2020 Patient is currently lying in the bed but is weak and lethargic. Still having leukocytosis and is being continued on antibiotics of ceftriaxone and Flagyl. Lower abdominal discomfort is still present. Patient does have diarrhea but seems to be improved as per patient. Patient denied any complaints of chest pain or shortness of breath. No fever no chills. Patient does have nausea no episodes of vomiting. Liver enzymes are trending down slowly. 02/10/2020 Patient is currently resting in the bed without any distress. No complaints of chest pain or shortness of the. Does have lower abdominal discomfort and diarrhea is still present. Currently on antibiotics from ceftriaxone and Flagyl. Still having significant leukocytosis at 17. Patient has been afebrile. No cough or sputum production. Denied any dysuria or hematuria. Liver enzymes are still elevated. 02/11/2020 Patient is currently still complaining of lower abdominal discomfort and diarrhea. But improving. No fever no chills. Leukocytosis is improving. Anticipate discharged to [facility] Complete review of systems negative except as above. Current medications reviewed. Objective - Vital Signs Vital signs: Vital Signs Temp 98.4 F 02/11/20 20:00 Pulse 86 02/11/20 20:00 Resp 18 02/11/20 20:00 BP 160/86 02/11/20 20:00 Pulse Ox 97 02/11/20 20:00 Intake & Output 02/11/20 02/11/20 02/12/20 06:59 18:59 06:59 Intake Total 603 Output Total 700 440 Balance -700 163 Weight 125.3 kg 125.3 kg Intake: Oral 603 Output: Urine 700 440 Other: Voiding Method Toilet Toilet Toilet # Voids 4 - Exam PHYSICAL EXAMINATION: GENERAL: The patient is alert and oriented x3, not in any acute distress. Well developed, well nourished. HEENT: Pupils are round and equally reacting to light. EOMI. No scleral icterus. No conjunctival pallor. Normocephalic, atraumatic. No pharyngeal erythema. No thyromegaly. CARDIOVASCULAR: S1 and S2 present. No murmurs, rubs, or gallops. PULMONARY: Chest is clear to auscultation, no wheezing or crackles. ABDOMEN: Soft, mild abdominal tenderness in the suprapubic and infraumbilical area, nondistended, normoactive bowel sounds. No palpable organomegaly. MUSCULOSKELETAL: No joint swelling or deformity. EXTREMITIES: No cyanosis, clubbing, or pedal edema. NEUROLOGICAL: Gross neurological examination did not reveal any focal deficits. SKIN: No rashes. - Labs CBC & Chem 7: 02/13/20 06:46 02/13/20 06:46 Labs: Abnormal Lab Results - Last 24 Hours (Table) 02/11/20 02/11/20 Range/Units 07:59 07:59 WBC 16.2 H (3.8-10.6) k/uL RBC 3.25 L (3.80-5.40) m/uL Hgb 8.5 L (11.4-16.0) gm/dL Hct 28.3 L (34.0-46.0) % MCHC 30.0 L (31.0-37.0) g/dL RDW 16.0 H (11.5-15.5) % Neutrophils # 13.8 H (1.3-7.7) k/uL Chloride 114 H (98-107) mmol/L Carbon Dioxide 21 L (22-30) mmol/L Glucose 141 H (74-99) mg/dL Calcium 7.7 L (8.4-10.2) mg/dL AST 51 H (14-36) U/L Alkaline Phosphatase 153 H (38-126) U/L Albumin 2.4 L (3.5-5.0) g/dL Microbiology - Last 24 Hours (Table) 02/06/20 06:55 Blood Culture - Preliminary Blood No Growth after 120 hours 02/11/20 00:40 Urine Culture - Preliminary Urine,Clean Catch Assessment and Plan Assessment: -Severe Sepsis most probably secondary to urinary tract infection and possible abdominal source also suspected.. - Gram-positive bacilli bacteremia possible source could be genitourinary system. Patient will be continued on IV fluids and IV antibiotics Rocephin and azithromycin will be discontinued as I do not see any clear with clear evidence of pneumonia possibility of Covid 19 is low. COVID 19 negative - Large Pelvic/ Uterine mass. OOBG/BEARING INSPECTOR is following. Pending transfer to [facility]. -Hematuria most probably secondary to UTI . -Elevated liver enzymes probably related to sepsis . -Atrial tachycardia for which patient is on beta jorge as mentioned above -Hypertension holding off antiemesis medications because of severe sepsis No pharmacologic DVT prophylaxis because of her hematuria GI prophylaxis with Pepcid1 UTI with secondary leukocytosis and constitutional symptoms, possibly early sepsis. Time with Patient: Greater than 30
--- NOTE | 2020-02-13 14:39 | P.PN ---
Subjective Progress Note Date: 02/12/20 Principal diagnosis: Suspected endometrial malignancy Patient is a pleasant 70-year-old female came in with complaints of fever has been going on for last couple days. Poor appetite fatigue. Patient denied any dysuria although patient does have hematuria. Chest x-ray showed some bibasilar atelectasis and patient is admitted for pneumonia although patient doesn't have any significant cough or sputum production at this time. Patient was also complaining of abdominal pain in the lower abdominal quadrants in the midabdomen and right lower abdominal quadrant. My suspicion is low for appendicitis. Patient does have mildly elevated liver enzymes. Patient had elevated serum creatinine of 1.47 came down to 1.2 with IV fluids I do not have her baseline. had leukocytosis with white blood cell count of 27,000 came down to 15,000.. Cor bleed 19 was ordered patient does have elevated ferritin and elevated LDH these are inflammatory markers which are elevated in any infection that she did have relative lymphopenia which resolved. Patient also has atrial tachycardia for which patient was started on beta jorge by audiology. Patient is not being initiated on any anti-correlation at this time. Patient also has lactic acidosis which improved with IV fluids. 02/06/2020 Patient is currently sitting in the chair. Complains of generalized weakness. COVID-19 test is negative. Patient underwent CT of the abdomen pelvis which showed abnormal appearance to the uterus. Marked enlargement. Suspicious for large central hypodensity with a scattered foci of 8 worrisome for infection/endometritis. Underlying neoplasm need to be excluded in patients of this age. HATCHERY MANAGER service was consulted. Otherwise patient is currently antibiotics in the form of ceftriaxone. Initial blood cultures growing gram-positive bacilli and repeat cultures will be ordered. Patient is also on Flagyl. Laboratory data showed WBC 14.8, hemoglobin 8.2 and platelets 208 Lymphocyte count is 0.9 Patient does have elevated AST ALT and alk phos and albumin is 2.2 urinalysis showed turbid with large blood and large leukocyte esterase and elevated WBCs and RBCs. Patient has been afebrile. Pulmonary is on board. 02/07/2020 Patient is currently lying in the bed comfortably. Feels generally weak. Diarrhea improved. Denied any complaints of chest pain. No worsening shortness of breath. Patient states that her abdominal pain is better Today. Patient is being continued on antibiotics in the form of ceftriaxone and Flagyl.. Cardiogram IV hydration and heart rate is better controlled. Patient had ultrasound of the pelvis and transvaginal showed uterus is enlarged and h eterogenous and markedly enlarged. Also calcification consistent with uterine fibroids. Endometrial tumor should be considered. Possible bilateral ovarian enlargement.. Laboratory data showed WBC count increased to 24.7 and hemoglobin is at 8.6 platelets 140 BUN 15 and creatinine 1.0 Calcium 7.3 AST 74, ALT 50, alk phos 212, albumin 5.8 CA-125 3 was 7.9 COVID-19 PCR negative. Patient has been afebrile today. Blood cultures positive for anaerobic gram-positive bacilli Pulmonary and HATCHERY MANAGER is following. Discussed with the [facility] transfer team at [place] for further management of endometrial and possible ovarian masses. Patient will be transferred to [facility] once the bed is available. 02/08/2020 Patient is currently lying in bed comfortably. Patient states that her abdominal comfort discomfort is better today. Still having diarrhea. Repeat blood cultures have been negative so far. Patient is being continued on antibiotics in the form of ceftriaxone and Flagyl. Patient has been afebrile. Leukocytosis improving to 18.5 today. Hemoglobin 8.2 and platelets 124, liver enzymes are still elevated. Patient is awaiting to be transferred to [facility] for further management of uterine mass. 02/09/2020 Patient is currently lying in the bed but is weak and lethargic. Still having leukocytosis and is being continued on antibiotics of ceftriaxone and Flagyl. Lower abdominal discomfort is still present. Patient does have diarrhea but seems to be improved as per patient. Patient denied any complaints of chest pain or shortness of breath. No fever no chills. Patient does have nausea no episodes of vomiting. Liver enzymes are trending down slowly. 02/10/2020 Patient is currently resting in the bed without any distress. No complaints of chest pain or shortness of the. Does have lower abdominal discomfort and diarrhea is still present. Currently on antibiotics from ceftriaxone and Flagyl. Still having significant leukocytosis at 17. Patient has been afebrile. No cough or sputum production. Denied any dysuria or hematuria. Liver enzymes are still elevated. 02/11/2020 Patient is currently still complaining of lower abdominal discomfort and diarrhea. But improving. No fever no chills. Leukocytosis is improving. Anticipate discharged to [facility] 02/12/2020 Patient is currently lying in the bed comfortably. On and off diarrhea. Leukocytosis is improving. Patient will be completing her antibiotic course. No headache or dizziness or lightheadedness. No fever no chills. Repeat blood cultures have been negative. Urine cultures showing Tayler. Likely colonization. Complete review of systems negative except as above. Current medications reviewed. Objective - Vital Signs Vital signs: Vital Signs Temp 97.6 F 02/12/20 08:00 Pulse 83 02/12/20 12:00 Resp 18 02/12/20 12:00 BP 159/80 02/12/20 12:00 Pulse Ox 97 02/12/20 12:00 Intake & Output 02/11/20 02/12/20 02/12/20 18:59 06:59 18:59 Intake Total 603 240 240 Output Total 440 Balance 163 240 240 Weight 125.3 kg 125.1 kg Intake: Intake, IV Titration 240 Amount Sodium Chloride 0.9% 1, 240 000 ml @ 50 mls/hr IV . Q20H [facility] Rx#:[id number] Oral 603 240 Output: Urine 440 Other: Voiding Method Toilet Toilet Toilet # Voids 2 2 - Exam PHYSICAL EXAMINATION: GENERAL: The patient is alert and oriented x3, not in any acute distress. Well developed, well nourished. HEENT: Pupils are round and equally reacting to light. EOMI. No scleral icterus. No conjunctival pallor. Normocephalic, atraumatic. No pharyngeal erythema. No thyromegaly. CARDIOVASCULAR: S1 and S2 present. No murmurs, rubs, or gallops. PULMONARY: Chest is clear to auscultation, no wheezing or crackles. ABDOMEN: Soft, mild abdominal tenderness in the suprapubic and infraumbilical area, nondistended, normoactive bowel sounds. No palpable organomegaly. MUSCULOSKELETAL: No joint swelling or deformity. EXTREMITIES: No cyanosis, clubbing, or pedal edema. NEUROLOGICAL: Gross neurological examination did not reveal any focal deficits. SKIN: No rashes. - Labs CBC & Chem 7: 02/13/20 06:46 02/13/20 06:46 Labs: Microbiology - Last 24 Hours (Table) 02/11/20 00:40 Urine Culture - Final Urine,Clean Catch Tayler sp,not albicans/galbr 02/06/20 06:55 Blood Culture - Final Blood No Growth after 144 hours Assessment and Plan Assessment: -Severe Sepsis most probably secondary to urinary tract infection and possible abdominal source also suspected.. Improved now. - Gram-positive bacilli bacteremia possible source could be genitourinary system. Repeat cultures negative. Patient will be continued on IV fluids and IV antibiotics Rocephin and Flagyl. azithromycin will be discontinued as I do not see any clear with clear evidence of pneumonia possibility of Covid 19 is low. COVID 19 negative - Large Pelvic/ Uterine mass. OOBG/ASPHALT MACHINE OPERATOR is following. Pending transfer to [facility]. -Hematuria most probably secondary to UTI . -Elevated liver enzymes probably related to sepsis . -Atrial tachycardia for which patient is on beta jorge as mentioned above -Hypertension holding off antiemesis medications because of severe sepsis DVT prophylaxis continue with Lovenox. Was on hold due to hematuria which re solved now. GI prophylaxis with Pepcid1
[2020-02-14] MEDS: PANTOPRAZOLE 40 MG TABLET PO SCH (06:26)
[2020-02-14] MEDS: METOPROLOL TARTRATE 25 MG TAB PO SCH (08:04)
[2020-02-14] MEDS: lisinopriL 10 MG TAB PO SCH (08:04)
[2020-02-14] MEDS: ENOXAPARIN 40 MG/0.4 ML SYRINGE SQ SCH (08:04)
[2020-02-14] MEDS: ASPIRIN 81 MG PO SCH (08:04)
[2020-02-14 08:42] VITALS: TEMP 98.2
[2020-02-14 11:42] VITALS: BP 154/81; PULSE 68; RESP 14
== END 2020-02-14 14:25 | disposition home health service (06) | DRG 872 ==
LOC: EC 13:52 → 3SCARD 16:19
PROVIDERS: ADMIT Hospitalist; ATTEND Hospitalist
DX: A41.89 Other specified sepsis (principal); N39.0 Urinary tract infection, site not specified; E87.2 Acidosis; I47.1 Supraventricular tachycardia; J98.11 Atelectasis; R65.20 Severe sepsis without septic shock; D25.2 Subserosal leiomyoma of uterus; E86.0 Dehydration; I10 Essential (primary) hypertension; I48.91 Unspecified atrial fibrillation; Z20.828 Contact with and (suspected) exposure to other viral communicable diseases; K82.9 Disease of gallbladder, unspecified; N20.0 Calculus of kidney; N95.0 Postmenopausal bleeding; R93.89 Abnormal findings on diagnostic imaging of other specified body structures; Z91.81 History of falling; R19.7 Diarrhea, unspecified; R94.5 Abnormal results of liver function studies; N39.3 Stress incontinence (female) (male); R31.9 Hematuria, unspecified; R15.9 Full incontinence of feces; Z79.82 Long term (current) use of aspirin; R19.09 Other intra-abdominal and pelvic swelling, mass and lump; N94.9 Unspecified condition associated with female genital organs and menstrual cycle
CPT/HCPCS: 36415; 71045; 74176; 76830; 76856; 80048; 80053; 81001; 82728; 83605; 83615; 83735; 84132; 84145; 85025; 85610; 85730; 86140; 86304; 87040; 87086; 87635; 93005; 96361; 96365; 96366; 99291

== ENCOUNTER 2020-03-29 12:34 | Inpatient (IN) | payer MEDICARE ==
[2020-03-29] MEDS ORDERED: SODIUM CHLORIDE 0.9% 500 ML 500 ML IV STA (12:48)
--- NOTE | 2020-03-29 12:55 | ED ---
Fall HPI - General Stated Complaint: Weakness Time Seen by Provider: 03/29/20 12:35 Source: RN notes reviewed, old records reviewed - History of Present Illness Initial Comments: This is a 61-year-old female history of A. fib history of recent hysterectomy for cancer as well as a colostomy who fell last night and could not get up. She was in [place] only. She was seen yesterday at [facility] in [place] she had a stent removed from her left neck she states initially she did have wraps placed on her left leg. Nasal pain the left leg and ankle area. No overt fevers chills sweats she is complaining of decreased output in the colostomy for the past several days. She does admit to decreased oral intake. Additionally she d oes have a wound cephalad from the colostomy that open up several days ago. No active bleeding no formed by seen no drainage or discharge. She denies any injury MD Complaint: fall - Related Data Home Medications Medication Instructions Recorded Confirmed Aspirin EC [Ecotrin] 325 mg PO DAILY 03/29/20 03/29/20 Enoxaparin Sodium 90 mg SQ Q12H 03/29/20 03/29/20 oxyCODONE HCL [OxyIR] 5 mg PO QID PRN 03/29/20 03/29/20 Previous Rx's Medication Instructions Recorded Metoprolol Tartrate [Lopressor] 25 mg PO BID #60 tab 02/14/20 lisinopriL [Zestril] 10 mg PO DAILY #30 tab 02/14/20 Allergies Allergy/AdvReac Type Severity Reaction Status Date / Time No Known Allergies Allergy Verified 03/29/20 14:17 Review of Systems ROS Statement: Those systems with pertinent positive or pertinent negative responses have been documented in the HPI. ROS Other: All systems not noted in ROS Statement are negative. Past Medical History Past Medical History: Hypertension Additional Past Medical History / Comment(s): Patient states she has not seen a physician for any medical problem in quite some time, probably at least 5 years. History of Any Multi-Drug Resistant Organisms: None Reported Past Surgical History: Breast Surgery (She has had a breast biopsy that was benign.) Additional Past Surgical History / Comment(s): Partial thyroidectomy Past Psychological History: No Psychological Hx Reported Smoking Status: Never smoker Past Alcohol Use History: None Reported Past Drug Use History: None Reported General Exam - General Exam Comments Initial Comments: This is a well-developed female who is awake alert oriented 3 Limitations: physical limitation General appearance: alert, in no apparent distress Head exam: Present: atraumatic, normocephalic, normal inspection Eye exam: Present: normal appearance, PERRL, EOMI. Absent: scleral icterus, conjunctival injection, periorbital swelling ENT exam: Present: mucous membranes dry Neck exam: Present: normal inspection. Absent: tenderness, meningismus, lymphadenopathy Respiratory exam: Present: normal lung sounds bilaterally. Absent: respiratory distress, wheezes, rales, rhonchi, stridor Cardiovascular Exam: Present: regular rate, normal rhythm, normal heart sounds. Absent: systolic murmur, diastolic murmur, rubs, gallop, clicks GI/Abdominal exam: Present: soft, normal bowel sounds, other (Colostomy present no evidence of any bleeding no discharge or drainage. The wound dehisced area above this is approximately 3 cm long by about 2 and half centimeters wide it does appear to be consistent with healthy granulation tissue). Absent: distended, tenderness, guarding, rebound, rigid Extremities exam: Present: full ROM, normal capillary refill, other (Left lower extremity dressing removed the foot is cool to touch but after dressing the color is improved. Spells. His pulses prominent. No calf tenderness.). Absent: tenderness, pedal edema, joint swelling, calf tenderness Back exam: Present: normal inspection Neurological exam: Present: alert, oriented X3, CN II-XII intact Psychiatric exam: Present: normal affect, normal mood Skin exam: Present: warm, dry, normal color. Absent: rash Course Vital Signs 03/29/20 03/29/20 12:37 14:01 Temperature 98.9 F Pulse Rate 91 91 Respiratory 16 18 Rate Blood Pressure 185/101 181/97 O2 Sat by Pulse 99 96 Oximetry Medical Decision Making - Medical Decision Making I did discuss findings with the patient she is had no chest pain she does have elevated troponin. She also has low potassium and magnesium. I did discuss the findings with her and her . She also has had urine output since he x- ray. I discussed the case with Dr. Cote who is been her physician in the past he is agreed to accept her on his service at the patient's request. Patient will be admitted with cardiology consultation - Lab Data Result diagrams: 03/29/20 13:33 03/29/20 13:33 Lab Results 03/29/20 03/29/20 03/29/20 Range/Units 13:33 13:33 13:33 WBC 8.0 (3.8-10.6) k/uL RBC 2.72 L (3.80-5.40) m/uL Hgb 8.0 L (11.4-16.0) gm/dL Hct 24.0 L (34.0-46.0) % MCV 88.2 (80.0-100.0) fL MCH 29.3 (25.0-35.0) pg MCHC 33.2 (31.0-37.0) g/dL RDW 16.4 H (11.5-15.5) % Plt Count 339 (150-450) k/uL MPV 7.9 Neutrophils % 77 % Lymphocytes % 14 % Monocytes % 5 % Eosinophils % 2 % Basophils % 1 % Neutrophils # 6.1 (1.3-7.7) k/uL Lymphocytes # 1.1 (1.0-4.8) k/uL Monocytes # 0.4 (0-1.0) k/uL Eosinophils # 0.2 (0-0.7) k/uL Basophils # 0.1 (0-0.2) k/uL Hypochromasia Slight Poikilocytosis Slight Anisocytosis Slight Sodium 139 (137-145) mmol/L Potassium 3.1 L (3.5-5.1) mmol/L Chloride 100 (98-107) mmol/L Carbon Dioxide 32 H (22-30) mmol/L Anion Gap 7 mmol/L BUN 4 L (7-17) mg/dL Creatinine 0.74 (0.52-1.04) mg/dL Est GFR (CKD-EPI)AfAm >90 (>60 ml/min/1.73 sqM) Est GFR (CKD-EPI)NonAf 84 (>60 ml/min/1.73 sqM) Glucose 99 (74-99) mg/dL Plasma Lactic Acid Jm 1.1 (0.7-2.0) mmol/L Calcium 8.1 L (8.4-10.2) mg/dL Magnesium 1.2 L (1.6-2.3) mg/dL Total Bilirubin 0.5 (0.2-1.3) mg/dL AST 28 (14-36) U/L ALT 12 (4-34) U/L Alkaline Phosphatase 97 (38-126) U/L Creatine Kinase 99 (30-135) U/L Troponin I (0.000-0.034) ng/mL Total Protein 6.6 (6.3-8.2) g/dL Albumin 3.0 L (3.5-5.0) g/dL 03/29/20 Range/Units 13:33 WBC (3.8-10.6) k/uL RBC (3.80-5.40) m/uL Hgb (11.4-16.0) gm/dL Hct (34.0-46.0) % MCV (80.0-100.0) fL MCH (25.0-35.0) pg MCHC (31.0-37.0) g/dL RDW (11.5-15.5) % Plt Count (150-450) k/uL MPV Neutrophils % % Lymphocytes % % Monocytes % % Eosinophils % % Basophils % % Neutrophils # (1.3-7.7) k/uL Lymphocytes # (1.0-4.8) k/uL Monocytes # (0-1.0) k/uL Eosinophils # (0-0.7) k/uL Basophils # (0-0.2) k/uL Hypochromasia Poikilocytosis Anisocytosis Sodium (137-145) mmol/L Potassium (3.5-5.1) mmol/L Chloride (98-107) mmol/L Carbon Dioxide (22-30) mmol/L Anion Gap mmol/L BUN (7-17) mg/dL Creatinine (0.52-1.04) mg/dL Est GFR (CKD-EPI)AfAm (>60 ml/min/1.73 sqM) Est GFR (CKD-EPI)NonAf (>60 ml/min/1.73 sqM) Glucose (74-99) mg/dL Plasma Lactic Acid Jm (0.7-2.0) mmol/L Calcium (8.4-10.2) mg/dL Magnesium (1.6-2.3) mg/dL Total Bilirubin (0.2-1.3) mg/dL AST (14-36) U/L ALT (4-34) U/L Alkaline Phosphatase (38-126) U/L Creatine Kinase (30-135) U/L Troponin I 0.067 H* (0.000-0.034) ng/mL Total Protein (6.3-8.2) g/dL Albumin (3.5-5.0) g/dL - EKG Data -: EKG Interpreted by Me EKG Comments: Sinus rhythm a 90 TN interval 134 QRS duration 84 QT since QTC 394/41 LVH poor R-wave progression - Radiology Data Radiology results: report reviewed, image reviewed (Imaging shows residual contrast showed hydronephrosis no obstruction seen) Disposition Clinical Impression: Elevated troponin, Hypokalemia, Hypomagnesemia Disposition: ADMITTED IP TO THIS HOSP Condition: Fair Referrals: Penny Howe MD [STAFF PHYSICIAN] - 1-2 days
[2020-03-29 13:42] LABS: Anisocytosis Slight; Basophils # (A) 0.1 k/uL (0-0.2); Basophils % (A) 1 %; Eosinophils # (A) 0.2 k/uL (0-0.7); Eosinophils % (A) 2 %; Hypochromasia Slight; Lymphocytes # (A) 1.1 k/uL (1.0-4.8); Lymphocytes % (A) 14 %; MCH 29.3 pg (25.0-35.0); MCHC 33.2 g/dL (31.0-37.0); MCV 88.2 fL (80.0-100.0); Mean Platelet Volume 7.9; Monocytes # (A) 0.4 k/uL (0-1.0); Monocytes % (A) 5 %; Neutrophils # (A) 6.1 k/uL (1.3-7.7); Neutrophils % (A) 77 %; Platelet Count 339 k/uL (150-450); Poikilocytosis Slight; RBC 2.72 m/uL (3.80-5.40); RDW 16.4 % (11.5-15.5)
--- NOTE | 2020-03-29 13:47 | XR ---
EXAMINATION TYPE: XR KUB DATE OF EXAM: 03/29/2020 COMPARISON: NONE HISTORY: Constipation TECHNIQUE: 2 views supine FINDINGS: There is no sign of intestinal obstruction or pneumoperitoneum. Fecal pattern is normal. Th ere is contrast in the urinary bladder. There is contrast in both kidneys with apparent bilateral hyd ronephrosis. I see no calculi over the kidneys. Lung bases are clear of consolidation. Heart is proba patria enlarged. There is stent apparently in the left iliac vein. IMPRESSION: There is bilateral hydronephrosis that appears new compared to CT scan of 02/06/2020. Non acute bowel gas pattern.
[2020-03-29 14:14] LABS: ALT 12 U/L (4-34); AST 28 U/L (14-36); African American GFR (CKD) >90 (>60 ml/min/1.73 sqM); Alkaline Phosphatase 97 U/L (38-126); Anion Gap 7 mmol/L; Blood Urea Nitrogen 4 mg/dL (7-17); Calcium 8.1 mg/dL (8.4-10.2); Carbon Dioxide 32 mmol/L (22-30); Chloride 100 mmol/L (98-107); Creatine Kinase 99 U/L (30-135); Magnesium 1.2 mg/dL (1.6-2.3); Non-African American GFR(CKD) 84 (>60 ml/min/1.73 sqM); Potassium 3.1 mmol/L (3.5-5.1); Sodium 139 mmol/L (137-145); Total Bilirubin 0.5 mg/dL (0.2-1.3)
[2020-03-29 14:33] LABS: Glucose 99 mg/dL (74-99); Total Protein 6.6 g/dL (6.3-8.2)
[2020-03-29] MEDS ORDERED: POTASSIUM CHLORIDE 20 MEQ in WATER FOR INJECTION 1 100ML.BAG IVPB STA (15:25)
[2020-03-29] MEDS ORDERED: ACETAMINOPHEN TAB 325 MG TAB PO PRN (15:26)
[2020-03-29] MEDS ORDERED: NALOXONE 0.4 MG/ML 1 ML VIAL IV PRN (15:26)
[2020-03-29] MEDS: MAGNESIUM SULFATE-D5W PMX 1 GM in DEXTROSE/WATER 1 100ML.BAG IVPB SCH ×2 (16:08→18:45)
[2020-03-29] MEDS ORDERED: ENALAPRILAT 1.25 MG/ML 1 ML VIAL IVP STA (16:30)
[2020-03-29] MEDS: ENOXAPARIN 100 MG/ML SYRINGE SQ SCH (16:46)
[2020-03-29] MEDS: ONDANSETRON 4 MG/2 ML VIAL IVP PRN (16:53)
[2020-03-29 16:54] LABS: Appearance,Urine Clear (Clear); Bacteria,Urine Moderate /hpf; Bilirubin,Urine Negative (Negative); Blood,Urine Negative (Negative); Budding Yeast,Urine Moderate /hpf; Color,Urine Yellow; Glucose,Urine (UA) Negative (Negative); Ketones,Urine 1+ (Negative); Leukocyte Esterase,Urine Trace (Negative); Mucus,Urine Rare /hpf; Nitrite,Urine Negative (Negative); Protein,Urine 1+ (Negative); RBC,Urine 24 /hpf (0-5); Specific Gravity,Urine 1.044 (1.001-1.035); Squamous Epithelial Cell,Urine 3 /hpf (0-4); Urobilinogen,Urine <2.0 mg/dL (<2.0); WBC,Urine 6 /hpf (0-5)
--- NOTE | 2020-03-29 17:04 | P.HPIM ---
History of Present Illness H&P Date: 03/29/20 Chief Complaint: Fall my legs gave out This is a 70-year-old -Iranian female with a previous medical history significant for hypertension and hypertensive perivascular disease hyperlipidemia, he shouldn't developed to have a significant loss of appetite and weight loss about 10-15 pounds and she was walking in her apartment when she fell down and her got her up to bed patient continues to fall multiple times about 3 times, she ended up coming to the hospital back in January thought that she is having a Covid 19 that she was tested for 3 time a was negative, that time she was diagnosed with UTI and pneumonia she was admitted to the hospital she had a computed tomography scan and that showed what appears to be uterine cancer she ended up getting transferred to [facility] at the [facility] where she saw Dr. Chiang where she underwent total abdominal x-ray to be bilateral sopping oophorectomy and she ended up having colostomy was 03/04/2020, and the patient was supposed to have an appointment on Tuesday to start her chemotherapy. Patient stated that she developed to have a significant DVT in the left lower extremity and she went to the [facility] yesterday and underwent thrombectomy with stent placement and an IVC filter placement, she was started on Lovenox 90 mg subcu Tuesday every 12 hours along with aspirin 325 mg orally once every day, and the patient had bilateral knee-high NEHA hose however her leg gave out while she was walking so her brought her to the emergency room for evaluation she also developed to have a dehiscence of the incision at the top of her stomach and because of that the visiting nurse asked her to come to the ER for evaluation, patient was seen and evaluated in the emergency department she was found to have a low potassium and low magnesium she was treated for that and she was admitted to the hospital for evaluation she also was found to have an elevated troponin and cardiology consultation was obtained. She showed normal sinus rhythm with nonspecific T-wave changes there was Q waves in the septum suggestive of an old ND. Review of Systems Constitutional: Reports anorexia, Reports fatigue, Reports malaise, Reports weakness Eyes: denies blurred vision, denies bulging eye, denies decreased vision Ears: deny: decreased hearing Ears, nose, mouth and throat: Denies dysphagia, Denies neck lump, Denies sore throat Cardiovascular: Denies chest pain, Denies decreased exercise tolerance, Denies dyspnea on exertion, Denies lightheadedness, Denies rapid heart beat, Denies s hortness of breath, Denies syncope Respiratory: Denies congestion, Denies cough with sputum, Denies home oxygen, Denies respiratory infections, Denies sleep apnea, Denies snoring, Denies wheezing Gastrointestinal: Denies abdominal pain, Denies BRBPR, Denies change in bowel habits, Denies excessive gas, Denies heartburn, Denies loss of appetite, Denies melena, Denies nausea, Denies vomiting Genitourinary: Denies dysuria, Denies nocturia Menstruation: Reports post hysterectomy, Reports postmenopausal Musculoskeletal: Reports frequent falls Musculoskeletal: left: ankle stiffness, ankle swelling, absent: ankle pain, elbow pain, elbow stiffness, elbow swelling, foot pain, foot stiffness, foot swelling, hand pain, hand stiffness, hand swelling, hip pain, hip stiffness, hip swelling, knee pain, knee stiffness, knee swelling, shoulder pain, shoulder stiffness, shoulder swelling, wrist pain, wrist stiffness, wrist swelling Integumentary: Denies pruritus, Denies rash Neurological: Denies numbness, Denies weakness Psychiatric: Denies anxiety, Denies depression Endocrine: Denies fatigue, Denies weight change Past Medical History Past Medical History: Cancer (Uterine cancer), Deep Vein Thrombosis (DVT) (DVT of the right lower extremity.), Hyperlipidemia, Hypertension, Osteoarthritis (OA) Additional Past Medical History / Comment(s): Patient states she has not seen a physician for any medical problem in quite some time, probably at least 5 years. History of Any Multi-Drug Resistant Organisms: None Reported Past Surgical History: Breast Surgery (She has had a breast biopsy that was benign.), Hysterectomy (Total abdominal hysterectomy and bilateral sopping nephrectomy due to uterine cancer along with colostomy placement) Additional Past Surgical History / Comment(s): Partial thyroidectomy Past Psychological History: No Psychological Hx Reported Smoking Status: Never smoker Past Alcohol Use History: None Reported Past Drug Use History: None Reported - Past Family History Mother Family Medical History: Diabetes Mellitus (Mother at age of 76 from diabetes competition as well as ND.) Father Family Medical History: No Reported History (Father at age of 55 after he fell off the roof doing his work.) Brother(s) Family Medical History: Diabetes Mellitus (Patient had 3 brothers one of them from alcoholism the other one from palpitation due to diabetes and the third one is an alcoholic and chronic tobacco use and dependence.) Sister(s) Family Medical History: Diabetes Mellitus (Patient had 3 sisters one from diabetes competition the other one from think that a cancer and the third one is alive with leukemia.) Son(s) Family Medical History: No Reported History (Patient has one son no major medical problems.) Medications and Allergies Home Medications Medication Instructions Recorded Confirmed Type Metoprolol Tartrate [Lopressor] 25 mg PO BID #60 tab 02/14/20 03/29/20 Rx lisinopriL [Zestril] 10 mg PO DAILY #30 tab 02/14/20 03/29/20 Rx Aspirin EC [Ecotrin] 325 mg PO DAILY 03/29/20 03/29/20 History Enoxaparin Sodium 90 mg SQ Q12H 03/29/20 03/29/20 History oxyCODONE HCL [OxyIR] 5 mg PO QID PRN 03/29/20 03/29/20 History Allergies Allergy/AdvReac Type Severity Reaction Status Date / Time No Known Allergies Allergy Verified 03/29/20 14:17 Physical Exam Vitals: Vital Signs Temp Pulse Resp BP Pulse Ox 03/29/20 16:01 91 18 188/103 99 03/29/20 14:01 91 18 181/97 96 03/29/20 12:37 98.9 F 91 16 185/101 99 Intake and Output 03/29/20 03/29/20 03/29/20 06:59 14:59 22:59 Other: Weight 117.027 kg Physical examination: HEENT: Head is atraumatic, normocephalic, pupils were equal round reactive to light and accommodations, extraocular muscle movement were intact, sclera nonicteric, conjunctivae were slightly pale, mucous membranes of the mouth are somewhat dry. Neck: Supple, no JVD. Chest: Decreased breath sounds at bases, few rhonchi, no expiratory wheezes, no chest wall tenderness, no intercostal retractions. Heart: First heart sound is depressed, second heart sounds normal, there is systolic ejection murmur 2/6 located in the left sternal border. Abdomen: Soft, mild tenderness, Steri-Strips in place, there is a dehiscence to the top of the wound, there is colostomy bag in place. Extremities: Left lower extremity 3 times the size of the right lower extremity with cough tenderness, there is a dressing behind the left popliteal area, dorsalis pedis +2 bilaterally. Neurologic examination: Patient is awake alert and oriented 3, creatinine of 2- 12 appear grossly intact, muscle power where 4 out of 5 in upper and lower extremities bilaterally. Results CBC & Chem 7: 03/29/20 13:33 03/29/20 13:33 Labs: Abnormal Lab Results - Last 24 Hours (Table) 03/29/20 03/29/20 03/29/20 Range/Units 13:33 13:33 13:33 RBC 2.72 L (3.80-5.40) m/uL Hgb 8.0 L (11.4-16.0) gm/dL Hct 24.0 L (34.0-46.0) % RDW 16.4 H (11.5-15.5) % Potassium 3.1 L (3.5-5.1) mmol/L Carbon Dioxide 32 H (22-30) mmol/L BUN 4 L (7-17) mg/dL Calcium 8.1 L (8.4-10.2) mg/dL Magnesium 1.2 L (1.6-2.3) mg/dL Troponin I 0.067 H* (0.000-0.034) ng/mL Albumin 3.0 L (3.5-5.0) g/dL Thrombosis Risk Factor Assmnt - DVT/VTE Prophylaxis DVT/VTE Prophylaxis: Pharmacologic Prophylaxis ordered, Mechanical Prophylaxis ordered Assessment and Plan Assessment: Assessment and plan: 1. Status post fall with left lower extremity weakness. Physical therapy evaluation, try to use a walker for ambulation. 2. Elevated troponin with abnormal EKG. Patient will be admitted to the hospital, she will be seen in consultation by cardiology F noticed patient underwent a pharmacological stress test prior to her surgical intervention about a month ago, continue patient on aspirin 325 mg once every day, continue patient on metoprolol 25 mg orally twice every day, start the patient on Lipitor 40 mg orally once every day. 3. Uterine cancer status post total abdominal instructed to be bilateral salpingo- oophorectomy with resultant colostomy and dehiscence of the top of the wound. Continue with Steri-Strips, continue with the wet-to-dry dressing, follow-up with [facility]RATOR oncology at [facility]. 4. Hypertension and hypertensive cardiovascular disease. Continue patient on lisinopril 10 mg once every day as well as metoprolol 25 mg orally twice every day. Patient was given 1 dose of Vasotec 1.25 mg IV push 1 because of accelerated hypertension. 5. DVT of the left lower extremity. Continue Lovenox 40 mg of convinced every 12 hours. 6. Hyperlipidemia. Continue patient Lipitor 40 mg orally once every day. 7. Hypokalemia and hypomagnesemia status post placement. 8. Medical debility. Physical therapy evaluation 9. DVT prophylaxis. Currently on Lovenox 90 mg subcutaneously every 12 hours. 10. GI prophylaxis. Protonix 40 mg IV push every 24 hours. 11. Anemia could be related to her malignancy with acute blood loss anemia. Monitor the patient's CBC transfuse for hemoglobin less than 7. 12. Admit to inpatient. Estimate a length of stay 2 midnights. 13. Full code. 14. Overall prognosis is guarded.
[2020-03-29] MEDS: METOPROLOL TARTRATE 25 MG TAB PO SCH (18:41)
[2020-03-29] MEDS: 0.9% NACL WITH KCL 20 MEQ/L 1,000 ML IV SCH (20:10)
[2020-03-30] MEDS: ENOXAPARIN 100 MG/ML SYRINGE SQ SCH ×2 (00:22→08:52)
[2020-03-30] MEDS: METOPROLOL TARTRATE 25 MG TAB PO SCH (08:53)
[2020-03-30] MEDS ORDERED: ASPIRIN 325 MG TAB PO SCH (09:00)
[2020-03-30] MEDS ORDERED: lisinopriL 10 MG TAB PO SCH (09:00)
[2020-03-30] MEDS ORDERED: ATORVASTATIN 40 MG TAB PO SCH (09:00)
[2020-03-30] MEDS ORDERED: PANTOPRAZOLE 40 MG/10 ML VIAL IVP SCH (09:00)
[2020-03-30] MEDS ORDERED: amLODIPine 10 MG TAB PO SCH ×2 (10:15→11:45)
--- NOTE | 2020-03-30 10:47 | US ---
EXAMINATION TYPE: US renals and bladder DATE OF EXAM: 03/30/2020 COMPARISON: KUB 03/29/2020, CT 01/2020 CLINICAL HISTORY: hydronephrosis. EXAM MEASUREMENTS: Right Kidney: 11.2 x 4.9 x 5.7 cm Left Kidney: 10.6 x 7.3 x 6.1 cm Right Kidney: No hydronephrosis or masses seen Left Kidney: Mild hydronephrosis Bladder: wnl Bilateral Jets seen: No Mild left-sided hydronephrosis identified. No nephrolithiasis is seen. No masses are identified. Th e urinary bladder is anechoic. Bilateral ureteral jets are seen. IMPRESSION: Mild left-sided hydronephrosis identified.
[2020-03-30 11:05] VITALS: RESP 16; TEMP 98.2
--- NOTE | 2020-03-30 11:42 | P.CRDCN ---
History of Present Illness Consult date: 03/30/20 History of present illness: CHIEF COMPLAINT: Elevated troponins HISTORY OF PRESENT ILLNESS: This is a 70-year-old female with a past medical history significant for uterine cancer with recent surgical intervention, hypertension, and hyperlipidemia. 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 We have been asked to see the patient in consultation for elevated troponin. Patient examined at the bedside. Patient states she had a blood clot in her left leg and underwent a procedure two days ago at [facility] to have the clot extracted. She was discharged home and she states when she got home her left leg gave out and she fell. She denies any chest pain or pressure. Denies shortness of breath. Denies nausea or vomiting. DIAGNOSTICS: EKG reveals sinus mechanism without any signs of acute ischemia Laboratory data: WBC 8.0. Hemoglobin 8.0. Platelet count 339. Sodium 139. Potassium 3.1. BUN 4. Creatinine 0.74. Magnesium 1.2. Troponin 0.067. 0.065. 0.055. Current home cardiac medications include aspirin 325 mg daily, Lovenox 90 mg subcu every 12 hours, metoprolol 25 mg twice a day, and lisinopril 10 g daily REVIEW OF SYSTEMS: At the time of my exam: CONSTITUTIONAL: Denies fever or chills. HEENT: Denies blurred vision, vision changes, or eye pain. Denies hemoptysis CARDIOVASCULAR: Denies chest pain, orthopnea, PND or palpitations RESPIRATORY: No shortness of breath. GASTROINTESTINAL: Denies abdominal pain. Denies nausea or vomiting. HEMATOLOGIC: Denies bleeding disorders. GENITOURINARY: Denies any blood in urine. SKIN: Denies pruitis. Denies rash. PHYSICAL EXAM: VITAL SIGNS: Reviewed. GENERAL: Well-developed in no acute distress. HEENT: Head is normocephalic. Pupils are equal, round. Sclerae anicteric. Mucous membranes of the mouth are moist. Neck supple. No JVD or thyromegaly LUNGS: Respirations even and unlabored. Lungs diminished. HEART: Regular rate and rhythm. S1 and S2 heard. ABDOMEN: Soft. Nondistended. Nontender. Colostomy present. EXTREMITIES: Normal range of motion. No clubbing or cyanosis. Peripheral puls es intact. Left lower extremity larger than right. NEUROLOGIC: Awake and alert. Oriented x 3. ASSESSMENT: S/P fall from standing Uterine cancer, s/p recent surgical intervention Left lower extremity DVT, s/p thrombectomy (and stenting?) Elevated troponins, not indicative of acute coronary syndrome, suspect likely secondary to acute DVT Hypertension Hyperlipidemia Hypokalemia Hypomagnesemia PLAN: An acute coronary event has been ruled out Obtain 2D echo to assess cardiac structure and function Continue home cardiac medications Continue home dose of aspirin and lovenox for DVT Obtain records from recent procedures performed at [facility] for DVT Further recommendations pending review of medical records Nurse practitioner note has been reviewed by physician. Signing provider agrees with the documented findings, assessment, and plan of care. Past Medical History Past Medical History: Cancer (Uterine cancer), Deep Vein Thrombosis (DVT) (DVT of the right lower extremity.), Hyperlipidemia, Hypertension, Osteoarthritis (OA) Additional Past Medical History / Comment(s): Patient states she has not seen a physician for any medical problem in quite some time, probably at least 5 years. History of Any Multi-Drug Resistant Organisms: None Reported Past Surgical History: Breast Surgery (She has had a breast biopsy that was benign.), Hysterectomy (Total abdominal hysterectomy and bilateral sopping nephrectomy due to uterine cancer along with colostomy placement) Additional Past Surgical History / Comment(s): Partial thyroidectomy Past Anesthesia/Blood Transfusion Reactions: No Reported Reaction Past Psychological History: No Psychological Hx Reported Smoking Status: Never smoker Past Alcohol Use History: None Reported Past Drug Use History: None Reported - Past Family History Mother Family Medical History: Diabetes Mellitus (Mother at age of 76 from diabetes competition as well as MS.) Father Family Medical History: No Reported History (Father at age of 55 after he fell off the roof doing his work.) Brother(s) Family Medical History: Diabetes Mellitus (Patient had 3 brothers one of them from alcoholism the other one from palpitation due to diabetes and the third one is an alcoholic and chronic tobacco use and dependence.) Sister(s) Family Medical History: Diabetes Mellitus (Patient had 3 sisters one from diabetes competition the other one from think that a cancer and the third one is alive with leukemia.) Son(s) Family Medical History: No Reported History (Patient has one son no major medical problems.) Medications and Allergies Home Medications Medication Instructions Recorded Confirmed Type Metoprolol Tartrate [Lopressor] 25 mg PO BID #60 tab 02/14/20 03/29/20 Rx lisinopriL [Zestril] 10 mg PO DAILY #30 tab 02/14/20 03/29/20 Rx Aspirin EC [Ecotrin] 325 mg PO DAILY 03/29/20 03/29/20 History Enoxaparin Sodium 90 mg SQ Q12H 03/29/20 03/29/20 History oxyCODONE HCL [OxyIR] 5 mg PO QID PRN 03/29/20 03/29/20 History Allergies Allergy/AdvReac Type Severity Reaction Status Date / Time No Known Allergies Allergy Verified 03/29/20 14:17 Physical Exam Vitals: Vital Signs Temp Pulse Pulse Resp BP BP Pulse Ox 03/30/20 08:00 98.2 F 74 16 161/67 100 03/30/20 04:00 98.3 F 83 18 186/85 97 03/30/20 02:00 18 03/30/20 00:00 98.7 F 78 18 176/87 97 03/29/20 20:00 98.7 F 85 18 174/87 99 03/29/20 18:48 98.9 F 91 18 175/94 99 03/29/20 17:53 175/94 03/29/20 16:56 192/99 03/29/20 16:01 91 18 188/103 99 03/29/20 14:01 91 18 181/97 96 03/29/20 12:37 98.9 F 91 16 185/101 99 Intake and Output 03/29/20 03/30/20 03/30/20 22:59 06:59 14:59 Other: Voiding Method Toilet Toilet Toilet # Voids 1 Weight 117.027 kg 106.7 kg Results 03/29/20 13:33 03/29/20 13:33 Cardiac Enzymes 03/29/20 03/29/20 03/29/20 Range/Units 13:33 13:33 17:39 AST 28 (14-36) U/L Troponin I 0.067 H* 0.065 H* (0.000-0.034) ng/mL 03/29/20 Range/Units 20:51 AST (14-36) U/L Troponin I 0.055 H* (0.000-0.034) ng/mL CBC 03/29/20 Range/Units 13:33 WBC 8.0 (3.8-10.6) k/uL RBC 2.72 L (3.80-5.40) m/uL Hgb 8.0 L (11.4-16.0) gm/dL Hct 24.0 L (34.0-46.0) % Plt Count 339 (150-450) k/uL Comprehensive Metabolic Panel 03/29/20 Range/Units 13:33 Sodium 139 (137-145) mmol/L Potassium 3.1 L (3.5-5.1) mmol/L Chloride 100 (98-107) mmol/L Carbon Dioxide 32 H (22-30) mmol/L BUN 4 L (7-17) mg/dL Creatinine 0.74 (0.52-1.04) mg/dL Glucose 99 (74-99) mg/dL Calcium 8.1 L (8.4-10.2) mg/dL AST 28 (14-36) U/L ALT 12 (4-34) U/L Alkaline Phosphatase 97 (38-126) U/L Total Protein 6.6 (6.3-8.2) g/dL Albumin 3.0 L (3.5-5.0) g/dL Current Medications Generic Name Dose Route Start Last Admin Trade Name Freq PRN Reason Stop Dose Admin Acetaminophen 650 mg 03/29/20 15:26 Acetaminophen Tab 325 Mg Tab PO Q6HR PRN Mild Pain or Fever > 100.5 Amlodipine Besylate 10 mg 03/30/20 10:15 Amlodipine 10 Mg Tab PO DAILY [facility] Aspirin 325 mg 03/30/20 09:00 03/30/20 08:52 Aspirin 325 Mg Tab PO 325 mg DAILY DANIEL Administration Atorvastatin Calcium 40 mg 03/30/20 09:00 03/30/20 08:53 Atorvastatin 40 Mg Tab PO 40 mg DAILY DANIEL Administration Enoxaparin Sodium 90 mg 03/29/20 15:30 03/30/20 08:52 Enoxaparin 100 Mg/Ml Syringe SQ 04/09/20 23:00 90 mg Q12HR DANIEL Administration Potassium Chloride/Sodium Chloride 1,000 mls @ 50 mls/hr 03/29/20 16:30 03/29/20 20:10 Ns-Kcl 20 Meq/L Iv Solution IV 50 mls/hr .Q20H DANIEL Administration Ceftriaxone Sodium 1 gm/ 50 mls @ 100 mls/hr 03/30/20 10:00 Sodium Chloride IVPB Q24HR DANIEL Lisinopril 20 mg 03/30/20 21:00 Lisinopril 20 Mg Tab PO BID DANIEL Metoprolol Tartrate 25 mg 03/29/20 21:00 03/30/20 08:53 Metoprolol Tartrate 25 Mg Tab PO 25 mg BID DANIEL Administration Naloxone HCl 0.2 mg 03/29/20 15:26 Naloxone 0.4 Mg/Ml 1 Ml Vial IV Q2M PRN Opioid Reversal Ondansetron HCl 4 mg 03/29/20 15:26 03/29/20 16:53 Ondansetron 4 Mg/2 Ml Vial IVP 4 mg Q8HR PRN Administration Nausea And Vomiting Oxycodone HCl 5 mg 03/29/20 15:28 03/30/20 08:52 Oxycodone Hcl 5 Mg Tab PO 5 mg QID PRN Administration Pain Pantoprazole Sodium 40 mg 03/30/20 09:00 03/30/20 08:51 Pantoprazole 40 Mg/10 Ml Vial IVP 40 mg DAILY DANIEL Administration Intake and Output 03/29/20 03/30/20 03/30/20 22:59 06:59 14:59 Other: Voiding Method Toilet Toilet Toilet # Voids 1 Weight 117.027 kg 106.7 kg 03/29/20 13:33 03/29/20 13:33
[2020-03-30 12:19] LABS: Anisocytosis Slight; Basophils % (A) 0 %; Eosinophils # (A) 0.6 k/uL (0-0.7); Eosinophils % (A) 9 %; HCT 23.1 % (34.0-46.0); HGB 7.6 gm/dL (11.4-16.0); Hypochromasia Slight; Lymphocytes # (A) 1.2 k/uL (1.0-4.8); Lymphocytes % (A) 18 %; MCH 29.5 pg (25.0-35.0); MCHC 33.2 g/dL (31.0-37.0); MCV 88.8 fL (80.0-100.0); Mean Platelet Volume 7.7; Monocytes # (A) 0.4 k/uL (0-1.0); Monocytes % (A) 6 %; Neutrophils # (A) 4.5 k/uL (1.3-7.7); Neutrophils % (A) 66 %; Platelet Count 323 k/uL (150-450); Poikilocytosis Slight; RBC 2.59 m/uL (3.80-5.40); RDW 16.4 % (11.5-15.5); WBC 6.8 k/uL (3.8-10.6)
[2020-03-30 12:32] VITALS: BMI 36.8
[2020-03-30 12:32] LABS: ALT 9 U/L (4-34); Magnesium 1.6 mg/dL (1.6-2.3)
[2020-03-30 12:48] LABS: AST 25 U/L (14-36); African American GFR (CKD) >90 (>60 ml/min/1.73 sqM); Albumin 2.5 g/dL (3.5-5.0); Alkaline Phosphatase 85 U/L (38-126); Anion Gap 3 mmol/L; Blood Urea Nitrogen 3 mg/dL (7-17); Calcium 7.8 mg/dL (8.4-10.2); Carbon Dioxide 31 mmol/L (22-30); Chloride 103 mmol/L (98-107); Glucose 102 mg/dL (74-99); Non-African American GFR(CKD) 89 (>60 ml/min/1.73 sqM); Potassium 3.1 mmol/L (3.5-5.1); Sodium 137 mmol/L (137-145); Total Bilirubin 0.5 mg/dL (0.2-1.3); Total Protein 5.9 g/dL (6.3-8.2)
[2020-03-30] MEDS ORDERED: POTASSIUM CHLORIDE ER 20 MEQ TAB.ER PO STA (14:35)
[2020-03-30] MEDS: MAGNESIUM SULFATE-D5W PMX 1 GM in DEXTROSE/WATER 1 100ML.BAG IVPB SCH ×2 (14:44→15:47)
[2020-03-30] MEDS: ONDANSETRON 4 MG/2 ML VIAL IVP PRN (15:02)
[2020-03-30] MEDS: POTASSIUM CHLORIDE 20 MEQ in WATER FOR INJECTION 1 100ML.BAG IVPB SCH ×2 (15:03→17:16)
[2020-03-30] MEDS: 0.9% NACL WITH KCL 20 MEQ/L 1,000 ML IV SCH (15:04)
--- NOTE | 2020-03-30 17:16 | P.DS ---
Providers Date of admission: 03/29/20 15:26 Expected date of discharge: 03/30/20 Attending physician: Brynn Cote Consults: 03/29/20 15:27 Consult Physician Routine Consulting Provider: Sg Isbell Consult Reason/Comments: Elevated troponin Do you want consulting provider notified?: Yes Primary care physician: Physician Nonstaff Hospital Course: This is a 70-year-old -Bhut[place] female with a previous medical history significant for hypertension and hypertensive perivascular disease hyperlipidemia, he shouldn't developed to have a significant loss of appetite and weight loss about 10-15 pounds and she was walking in her apartment when she fell down and her got her up to bed patient continues to fall multiple times about 3 times, she ended up coming to the hospital back in January thought that she is having a Covid 19 that she was tested for 3 time a was negative, that time she was diagnosed with UTI and pneumonia she was admitted to the hospital she had a computed tomography scan and that showed what appears to be uterine cancer she ended up getting transferred to [facility] at the [facility] where she saw Dr. Chiang where she underwent total abdominal x-ray to be bilateral sopping oophorectomy and she ended up having colostomy was 03/04/2020, and the patient was supposed to have an appointment on Tuesday to start her chemotherapy. Patient stated that she developed to have a significant DVT in the left lower extremity and she went to the [facility] yesterday and underwent thrombectomy with stent placement and an IVC filter placement, she was started on Lovenox 90 mg subcu Tuesday every 12 hours along with aspirin 325 mg orally once every day, and the patient had bilateral knee-high NEHA hose however her leg gave out while she was walking so her brought her to the emergency room for evaluation she also developed to have a dehiscence of the incision at the top of her stomach and because of that the visiting nurse asked her to come to the ER for evaluation, patient was seen and evaluated in the emergency department she was found to have a low potassium and low magnesium she was treated for that and she was admitted to the hospital for evaluation she also was found to have an elevated troponin and cardiology consultation was obtained. She showed normal sinus rhythm with nonspecific T-wave changes there was Q waves in the septum suggestive of an old [place]. discharge diagnoses; 1. Status post fall with left lower extremity weakness. 2. Elevated troponin with abnormal EKG. Patient will be admitted to the hospital, she will be seen in consultation by cardiology F noticed patient underwent a pharmacological stress test prior to her surgical intervention about a month ago, continue patient on aspirin 325 mg once every day, continue patient on metoprolol 25 mg orally twice every day, start the patient on Lipitor 40 mg orally once every day. 3. Uterine cancer status post total abdominal instructed to be bilateral salpingo- oophorectomy with resultant colostomy and dehiscence of the top of the wound. Continue with Steri-Strips, continue with the wet-to-dry dressing, follow-up with [facility]AL[facility]PROVEMENT ANALYST oncology at [facility] tomorrow morning. 4. Hypertension and hypertensive cardiovascular disease. 5. DVT of the left lower extremity. 6. Hyperlipidemia. 7. Hypokalemia and hypomagnesemia . 8. Medical debility. 9. Anemia could be related to her malignancy with acute blood loss anemia 10. UTI. Patient Condition at Discharge: Fair Plan - Discharge Summary Discharge Rx Participant: No New Discharge Prescriptions: No Action Metoprolol Tartrate [Lopressor] 25 mg PO BID #60 tab lisinopriL [Zestril] 10 mg PO DAILY #30 tab oxyCODONE HCL [OxyIR] 5 mg PO QID PRN PRN Reason: Pain Enoxaparin Sodium 90 mg SQ Q12H Aspirin EC [Ecotrin] 325 mg PO DAILY Discharge Medication List Metoprolol Tartrate [Lopressor] 25 mg PO BID #60 tab 02/14/20 [Rx] lisinopriL [Zestril] 10 mg PO DAILY #30 tab 02/14/20 [Rx] Aspirin EC [Ecotrin] 325 mg PO DAILY 03/29/20 [History] Enoxaparin Sodium 90 mg SQ Q12H 03/29/20 [History] oxyCODONE HCL [OxyIR] 5 mg PO QID PRN 03/29/20 [History] Follow up Appointment(s)/Referral(s): Penny Howe MD [STAFF PHYSICIAN] - 1-2 days
[2020-03-30 17:18] VITALS: BP 142/84; PULSE 79
[2020-03-30] MEDS ORDERED: lisinopriL 20 MG TAB PO SCH (21:00)
[2020-03-31] MEDS ORDERED: PANTOPRAZOLE 40 MG TABLET PO SCH (07:30)
== END 2020-03-30 19:50 | disposition home or self-care (01) | DRG 948 ==
LOC: EC 12:34 → 3SCARD 15:26
PROVIDERS: ADMIT Internal Medicine; ATTEND Internal Medicine
DX: R53.1 Weakness (principal); T81.31XA Disruption of external operation (surgical) wound, not elsewhere classified, initial encounter; N39.0 Urinary tract infection, site not specified; I82.402 Acute embolism and thrombosis of unspecified deep veins of left lower extremity; D62 Acute posthemorrhagic anemia; E78.5 Hyperlipidemia, unspecified; E83.42 Hypomagnesemia; E87.6 Hypokalemia; I11.9 Hypertensive heart disease without heart failure; R79.89 Other specified abnormal findings of blood chemistry; R53.81 Other malaise; C55 Malignant neoplasm of uterus, part unspecified; I48.91 Unspecified atrial fibrillation; I25.2 Old myocardial infarction; Z79.82 Long term (current) use of aspirin; Z79.899 Other long term (current) drug therapy; Z80.6 Family history of leukemia; Z83.3 Family history of diabetes mellitus; Z85.42 Personal history of malignant neoplasm of other parts of uterus; Z86.718 Personal history of other venous thrombosis and embolism; Z90.5 Acquired absence of kidney; Z90.710 Acquired absence of both cervix and uterus; Z93.3 Colostomy status; Z98.890 Other specified postprocedural states
CPT/HCPCS: 36415; 74018; 76770; 80053; 81001; 82550; 83605; 83735; 84484; 85025; 87077; 87086; 87186; 93005; 96361; 96365; 96366; 96375; 99285

== ENCOUNTER 2020-10-15 13:03 | Inpatient (IN) | payer MEDICARE ==
[2020-10-15] MEDS ORDERED: SODIUM CHLORIDE 0.9% 1,000 ML IV STA ×2 (13:16)
--- NOTE | 2020-10-15 13:21 | ED ---
Seizure HPI - General Stated Complaint: seizure Time Seen by Provider: 10/15/20 13:03 Source: patient, family, EMS, RN notes reviewed Mode of arrival: EMS - History of Present Illness Initial Comments: This is a 69-year-old female history of uterine cancer who had a seizure today lasting about 15 minutes tonic-clonic in nature with generalized shaking that was witnessed by her . She also had a brief one when she was at her doctor's office. She was brought here by EMS for evaluation upon arrival she is awake alert oriented 3. She complains only of some sacral pain from a source that she has. She states she's never a seizure since she started chemotherapy for her cancer. No reports of fevers chills nausea vomiting sweats dysuria she does have a colostomy. No other current complaints or modifying factors she is unsure of the medication that she's on. MD Complaint: seizure - Related Data Home Medications Medication Instructions Recorded Confirmed Aspirin EC [Ecotrin] 325 mg PO HS 03/29/20 10/15/20 Ferrous Sulfate [Slow Fe] 142 mg PO DAILY 10/15/20 10/15/20 Magnesium Hydroxide [Milk of 2,400 mg PO DAILY 10/15/20 10/15/20 Magnesia] Metoprolol Tartrate [Lopressor] 50 mg PO DAILY 10/15/20 10/15/20 Ondansetron Odt [Zofran Odt] 4 mg PO Q8H PRN 10/15/20 10/15/20 Polyethylene Glycol 3350 [Miralax] 17 gm PO DAILY 10/15/20 10/15/20 Potassium Chloride ER [K-Dur 20] 20 meq PO BID 10/15/20 10/15/20 Rivaroxaban [Xarelto] 20 mg PO HS 10/15/20 10/15/20 Sennosides [Senna] 8.6 mg PO DAILY 10/15/20 10/15/20 Previous Rx's Medication Instructions Recorded Atorvastatin [Lipitor] 40 mg PO DAILY #30 tab 03/30/20 Allergies Allergy/AdvReac Type Severity Reaction Status Date / Time No Known Allergies Allergy Verified 10/15/20 14:53 Review of Systems ROS Statement: Those systems with pertinent positive or pertinent negative responses have been documented in the HPI. ROS Other: All systems not noted in ROS Statement are negative. Past Medical History Past Medical History: Cancer (Uterine cancer), Deep Vein Thrombosis (DVT) (DVT of the right lower extremity.), Hyperlipidemia, Hypertension, Osteoarthritis (OA) Additional Past Medical History / Comment(s): Patient states she has not seen a physician for any medical problem in quite some time, probably at least 5 years. History of Any Multi-Drug Resistant Organisms: None Reported Past Surgical History: Breast Surgery (She has had a breast biopsy that was benign.), Hysterectomy (Total abdominal hysterectomy and bilateral sopping nephrectomy due to uterine cancer along with colostomy placement) Additional Past Surgical History / Comment(s): Partial thyroidectomy Past Anesthesia/Blood Transfusion Reactions: No Reported Reaction Past Psychological History: No Psychological Hx Reported Smoking Status: Never smoker Past Alcohol Use History: None Reported Past Drug Use History: None Reported - Past Family History Mother Family Medical History: Diabetes Mellitus (Mother at age of 76 from diabetes competition as well as [place].) Father Family Medical History: No Reported History (Father at age of 55 after he fell off the roof doing his work.) Brother(s) Family Medical History: Diabetes Mellitus (Patient had 3 brothers one of them from alcoholism the other one from palpitation due to diabetes and the third one is an alcoholic and chronic tobacco use and dependence.) Sister(s) Family Medical History: Diabetes Mellitus (Patient had 3 sisters one from diabetes competition the other one from think that a cancer and the third one is alive with leukemia.) Son(s) Family Medical History: No Reported History (Patient has one son no major medical problems.) General Exam - General Exam Comments Initial Comments: This is a well-developed asthenic appearing female who is awake alert oriented 3 General appearance: alert, in no apparent distress Head exam: Present: atraumatic, normocephalic, normal inspection Eye exam: Present: normal appearance, PERRL, EOMI. Absent: scleral icterus, conjunctival injection, periorbital swelling ENT exam: Present: mucous membranes dry Neck exam: Present: normal inspection. Absent: tenderness, meningismus, lymphadenopathy Respiratory exam: Present: normal lung sounds bilaterally. Absent: respiratory distress, wheezes, rales, rhonchi, stridor Cardiovascular Exam: Present: regular rate, normal rhythm, normal heart sounds. Absent: systolic murmur, diastolic murmur, rubs, gallop, clicks GI/Abdominal exam: Present: soft, normal bowel sounds. Absent: distended, tenderness, guarding, rebound, rigid Extremities exam: Present: normal inspection, full ROM, normal capillary refill. Absent: tenderness, pedal edema, joint swelling, calf tenderness Back exam: Present: normal inspection Neurological exam: Present: alert, oriented X3, CN II-XII intact Psychiatric exam: Present: normal affect, normal mood Skin exam: Present: warm, dry, normal color, other (Pressure sore noted on the sacral area.). Absent: rash Course Vital Signs 10/15/20 13:09 Temperature 98.3 F Pulse Rate 129 H Respiratory 18 Rate Blood Pressure 99/71 O2 Sat by Pulse 100 Oximetry Medical Decision Making - Medical Decision Making I did discuss findings with the patient family as well as with Dr. Orlando ward. Pat ient be admitted place an IV fluids IV antibiotics IV Keppra neurological consultation. - Lab Data Result diagrams: 10/15/20 14:02 10/15/20 14:48 Lab Results 10/15/20 10/15/20 10/15/20 Range/Units 14:02 14:02 14:48 WBC 2.9 L (3.8-10.6) k/uL RBC 3.82 (3.80-5.40) m/uL Hgb 12.1 (11.4-16.0) gm/dL Hct 37.3 (34.0-46.0) % MCV 97.6 (80.0-100.0) fL MCH 31.7 (25.0-35.0) pg MCHC 32.5 (31.0-37.0) g/dL RDW 18.0 H (11.5-15.5) % Plt Count 171 (150-450) k/uL MPV 7.7 Neutrophils % 75 % Lymphocytes % 16 % Monocytes % 6 % Eosinophils % 1 % Basophils % 0 % Neutrophils # 2.2 (1.3-7.7) k/uL Lymphocytes # 0.5 L (1.0-4.8) k/uL Monocytes # 0.2 (0-1.0) k/uL Eosinophils # 0.0 (0-0.7) k/uL Basophils # 0.0 (0-0.2) k/uL Anisocytosis Slight Macrocytosis Slight Sodium 135 L (137-145) mmol/L Potassium 4.5 (3.5-5.1) mmol/L Chloride 103 (98-107) mmol/L Carbon Dioxide 25 (22-30) mmol/L Anion Gap 7 mmol/L BUN 22 H (7-17) mg/dL Creatinine 1.26 H (0.52-1.04) mg/dL Est GFR (CKD-EPI)AfAm 50 (>60 ml/min/1.73 sqM) Est GFR (CKD-EPI)NonAf 44 (>60 ml/min/1.73 sqM) Glucose 105 H (74-99) mg/dL Plasma Lactic Acid Jm (0.7-2.0) mmol/L Calcium 8.1 L (8.4-10.2) mg/dL Magnesium 1.1 L (1.6-2.3) mg/dL Total Bilirubin 0.1 L (0.2-1.3) mg/dL AST 26 (14-36) U/L ALT 14 (4-34) U/L Alkaline Phosphatase 105 (38-126) U/L Ammonia (<30) umol/L Troponin I (0.000-0.034) ng/mL Total Protein 5.8 L (6.3-8.2) g/dL Albumin 2.7 L (3.5-5.0) g/dL Urine Color Yellow Urine Appearance Turbid H (Clear) Urine pH 6.0 (5.0-8.0) Ur Specific [place] 1.020 (1.001-1.035) Urine Protein 2+ H (Negative) Urine Glucose (UA) Negative (Negative) Urine Ketones Negative (Negative) Urine Blood Moderate H (Negative) Urine Nitrite Negative (Negative) Urine Bilirubin Negative (Negative) Urine Urobilinogen <2.0 (<2.0) mg/dL Ur Leukocyte Esterase Large H (Negative) Urine RBC 59 H (0-5) /hpf Urine WBC >182 H (0-5) /hpf Urine WBC Clumps Many H (None) /hpf Urine Bacteria Occasional H (None) /hpf Urine Mucus Rare H (None) /hpf 10/15/20 10/15/20 Range/Units 14:48 14:48 WBC (3.8-10.6) k/uL RBC (3.80-5.40) m/uL Hgb (11.4-16.0) gm/dL Hct (34.0-46.0) % MCV (80.0-100.0) fL MCH (25.0-35.0) pg MCHC (31.0-37.0) g/dL RDW (11.5-15.5) % Plt Count (150-450) k/uL MPV Neutrophils % % Lymphocytes % % Monocytes % % Eosinophils % % Basophils % % Neutrophils # (1.3-7.7) k/uL Lymphocytes # (1.0-4.8) k/uL Monocytes # (0-1.0) k/uL Eosinophils # (0-0.7) k/uL Basophils # (0-0.2) k/uL Anisocytosis Macrocytosis Sodium (137-145) mmol/L Potassium (3.5-5.1) mmol/L Chloride (98-107) mmol/L Carbon Dioxide (22-30) mmol/L Anion Gap mmol/L BUN (7-17) mg/dL Creatinine (0.52-1.04) mg/dL Est GFR (CKD-EPI)AfAm (>60 ml/min/1.73 sqM) Est GFR (CKD-EPI)NonAf (>60 ml/min/1.73 sqM) Glucose (74-99) mg/dL Plasma Lactic Acid Jm 1.4 (0.7-2.0) mmol/L Calcium (8.4-10.2) mg/dL Magnesium (1.6-2.3) mg/dL Total Bilirubin (0.2-1.3) mg/dL AST (14-36) U/L ALT (4-34) U/L Alkaline Phosphatase (38-126) U/L Ammonia <9 (<30) umol/L Troponin I 0.018 (0.000-0.034) ng/mL Total Protein (6.3-8.2) g/dL Albumin (3.5-5.0) g/dL Urine Color Urine Appearance (Clear) Urine pH (5.0-8.0) Ur Specific [place] (1.001-1.035) Urine Protein (Negative) Urine Glucose (UA) (Negative) Urine Ketones (Negative) Urine Blood (Negative) Urine Nitrite (Negative) Urine Bilirubin (Negative) Urine Urobilinogen (<2.0) mg/dL Ur Leukocyte Esterase (Negative) Urine RBC (0-5) /hpf Urine WBC (0-5) /hpf Urine WBC Clumps (None) /hpf Urine Bacteria (None) /hpf Urine Mucus (None) /hpf - EKG Data -: EKG Interpreted by Me EKG shows normal: sinus rhythm EKG Comments: Sinus tachycardia 1:15 TN interval 134 QRS duration 72 QT since QTC 322/445 evidence of old septal changes. - Radiology Data Radiology results: report reviewed (Reviewed no acute findings), image reviewed Disposition Clinical Impression: Generalized seizure, Dehydration, Urinary tract infection, Acute kidney injury, Hypomagnesemia Disposition: [facility] Condition: Fair Instructions (If sedation given, give patient instructions): Seizure/Epilepsy Discharge Instructions & Follow-Up Referrals: Brynn Cote MD [Primary Care Provider] - 1-2 days
[2020-10-15 14:16] LABS: Anisocytosis Slight; Basophils % (A) 0 %; Eosinophils % (A) 1 %; HCT 37.3 % (34.0-46.0); HGB 12.1 gm/dL (11.4-16.0); Lymphocytes # (A) 0.5 k/uL (1.0-4.8); Lymphocytes % (A) 16 %; MCH 31.7 pg (25.0-35.0); MCHC 32.5 g/dL (31.0-37.0); MCV 97.6 fL (80.0-100.0); Macrocytosis Slight; Mean Platelet Volume 7.7; Monocytes # (A) 0.2 k/uL (0-1.0); Monocytes % (A) 6 %; Neutrophils # (A) 2.2 k/uL (1.3-7.7); Neutrophils % (A) 75 %; Platelet Count 171 k/uL (150-450); RBC 3.82 m/uL (3.80-5.40); WBC 2.9 k/uL (3.8-10.6)
--- NOTE | 2020-10-15 14:32 | CT ---
EXAMINATION TYPE: CT brain wo con DATE OF EXAM: 10/15/2020 COMPARISON: None HISTORY: New Onset seizure activity after chemo treatment CT DLP: 1172.[address] of the brain was performed. The ventricles, basal cisterns and sulci overlying the cerebral convexities demonstrate mild enlargem ent. There is no evidence for intracranial hemorrhage or sulcal effacement. There is decreased attenuation about the periventricular white matter and deep white matter of both c erebral hemispheres, compatible with chronic small vessel ischemia. Differential diagnosis does inclu de demyelination. No mass effects are seen.No midline shift. Osseous calvarium is intact. If symptoms persist consider MRI. IMPRESSION: 1. Age related atrophic and chronic small vessel ischemic change without acute intracranial process s een at this time.
[2020-10-15 15:19] LABS: Albumin 2.7 g/dL (3.5-5.0); Calcium 8.1 mg/dL (8.4-10.2); Lactic Acid, Venous 1.4 mmol/L (0.7-2.0); Magnesium 1.1 mg/dL (1.6-2.3); Potassium 4.5 mmol/L (3.5-5.1); Total Bilirubin 0.1 mg/dL (0.2-1.3); Total Protein 5.8 g/dL (6.3-8.2)
[2020-10-15 16:30] LABS: Appearance,Urine Turbid (Clear); Bacteria,Urine Occasional /hpf; Bilirubin,Urine Negative (Negative); Blood,Urine Moderate (Negative); Color,Urine Yellow; Glucose,Urine (UA) Negative (Negative); Ketones,Urine Negative (Negative); Leukocyte Esterase,Urine Large (Negative); Mucus,Urine Rare /hpf; Nitrite,Urine Negative (Negative); Protein,Urine 2+ (Negative); RBC,Urine 59 /hpf (0-5); Urobilinogen,Urine <2.0 mg/dL (<2.0); WBC,Urine >182 /hpf (0-5)
[2020-10-15] MEDS ORDERED: PIPERACILLIN-TAZOBACTAM 3.375 GM in SODIUM CHLORIDE 0.9% 100 ML IVPB STA (17:20)
[2020-10-15] MEDS ORDERED: levETIRAcetam IV 1,000 MG in SALINE 1 100ML.BAG IVPB STA (17:27)
[2020-10-15] MEDS ORDERED: ACETAMINOPHEN TAB 325 MG TAB PO PRN (17:28)
[2020-10-15] MEDS ORDERED: NALOXONE 0.4 MG/ML 1 ML VIAL IV PRN (17:28)
[2020-10-15] MEDS ORDERED: ONDANSETRON ODT 4 MG TAB PO PRN (17:31)
[2020-10-15] MEDS: MAGNESIUM SULFATE-D5W PMX 1 GM in DEXTROSE/WATER 1 100ML.BAG IVPB SCH ×2 (19:06→21:19)
[2020-10-15] MEDS ORDERED: RIVAROXABAN 20 MG TAB PO SCH (21:00)
[2020-10-15] MEDS: ASPIRIN 325 MG TAB PO SCH (22:21)
[2020-10-15] MEDS: SODIUM CHLORIDE 0.9% 1,000 ML IV SCH (22:22)
[2020-10-15] MEDS: POTASSIUM CHLORIDE ER 20 MEQ TAB.ER PO SCH (22:22)
[2020-10-16] MEDS: PIPERACILLIN-TAZOBACTAM 3.375 GM in SODIUM CHLORIDE 0.9% 100 ML IVPB SCH ×3 (02:13→18:42)
[2020-10-16] MEDS: SODIUM CHLORIDE 0.9% 1,000 ML IV SCH ×3 (06:35→20:35)
--- NOTE | 2020-10-16 09:00 | P.HPIM ---
History of Present Illness H&P Date: 10/16/20 HISTORY OF PRESENT ILLNESS This is a 70-year-old -Serbian female with a previous medical history significant for hypertension and hypertensive cardiovascular disease, hyperlipidemia, uterine cancer status post total abdominal hysterectomy and salpingectomy oophorectomy and followed with [facility] oncologist at [facility] in [place], DVT status post thrombectomy and stent placement and IVC filter. Patient's last hospitalization was in March 2020 at which time she was treated after a fall with left lower extremity weakness. She did have elevated troponins at that time with abnormal EKG but had recently undergone pharmacological stress test and was cleared by cardiology. Patient barely had a seizure yesterday that lasted about 15 minutes, colonic tonic-type seizure that was witnessed by her and she also had a seizure while at the office. EMS was called to transport the patient to the hospital. Patient presented to [facility] emergency center for evaluation by EMS. Upon arrival she was oriented 3. She was found to be afebrile, initial heart rate 129, blood pressure 99/71, pulse ox 100%. EKG was a sinus tachycardia. WBC 2.9, hemoglobin 12.1, platelet count 171. Sodium 135, potassium 4.5, chloride 101, CO2 25, BUN 22 and creatinine 1.26. Blood sugar 105. Calcium 8.1, magnesium 1.1. Total bilirubin 0.1, AST 26, ALT 14, alkaline phosphatase 105. Albumin 2.7. Urinalysis was turbid, blood moderate, leukoeste rase large, WBCs greater than 182 with WBC clumps many and bacteria occasional. Lactic acid was 1.4. Ammonia level less than 9. Troponin 0.018. Urine culture is in process. CAT scan of the brain showed age related atrophy and chronic small vessel ischemic change without acute intracranial process. Magnesium was replaced with 2 g IV piggyback, status post 2 L of IV fluids. Patient was started on IV fluids, IV Keppra and neurology consult requested. She has remained afebrile, heart rate in the low 100s and blood pressure 111/79. REVIEW OF SYSTEMS Constitutional: No fever, no chills, no night sweats. No weight change. No weakness, fatigue or lethargy. No daytime sleepiness. EENT: No headache. No blurred vision or double vision, no loss of vision. No loss of Hearing, no ringing in the ears, no dizziness. No nasal drainage or congestion. No epistaxis. No sore throat. Lungs: No shortness of breath, cough, no sputum production. No wheezing. Cardiovascular: No chest pain, no lower extremity edema. No palpitations. No paroxysmal nocturnal dyspnea. No orthopnea. No lightheadedness or dizziness. No syncopal episodes. Abdominal: No abdominal pain. No nausea, vomiting. No diarrhea. No constipation. No bloody or tarry stools.. No loss of appetite. Genitourinary: No dysuria, increased frequency, urgency. No urinary retention. Musculoskeletal: No myalgias. No muscle weakness, no gait dysfunction, no frequent falls. No back pain. No neck pain. Integumentary: Positive abdominal wound, chronic, no lesions. No rash or pruritus. No unusual bruising. No change in hair or nails. Neurologic: No aphasia. No facial droop. No change in mentation. No head injury. No headache. No paralysis. No paresthesia. Positive seizure activity. Psychiatric: No depression. No anxiety. No mood swings. Endocrine: No abnormal blood sugars. No weight change. No excessive sweating or thirst. No cold intolerance. MEDICAL HISTORY Uterine cancer status post surgery and chemotherapy DVT of the right lower extremity Hypertension Hyperlipidemia Generalized osteoarthritis SURGICAL HISTORY Breast biopsy, benign Total abdominal hysterectomy and bilateral salpingectomy oophorectomy due to uterine cancer along with colostomy placement Partial thyroidectomy Right lower extremity thrombectomy, stent placement and IVC filter SOCIAL HISTORY Patient is a lifelong nonsmoker, no alcohol use, no illicit drug use FAMILY HISTORY Mother at age 76 from diabetes complications at well as [place]. Father at age 55 after a fall from a roof. Patient had 3 brothers and one of them from alcoholism, one from comp patients from diabetes and the third is an alcoholic with chronic tobacco use and dependence. Patient has 3 sisters and one from diabetes Occasions and one from cancer and the third one is living with leukemia. Patient has one son living with no major medical problems. PHYSICAL EXAMINATION Gen: This is a 70-year-old female, resting in bed and appears to be comfortable and in no acute distress. HEENT: Head is atraumatic, normocephalic. Pupils equal, round. Sclerae is anicteric. NECK: Supple. No JVD. No lymphadenopathy. No thyromegaly. Chest: Decreased breath sounds at bases, few rhonchi, no expiratory wheezes, no chest wall tenderness, no intercostal retractions. monitoring manager sinus rhythm. Heart: First heart sound is depressed, second heart sounds normal, there is systolic ejection murmur 2/6 located in the left sternal border. ABDOMEN: Soft. Bowel sounds are present. No masses. No tenderness. Small open wound at the previous surgical site. Colostomy in place. EXTREMITIES: No pedal edema. No calf tenderness. NEUROLOGICAL: Patient is awake, alert and oriented x3. Cranial nerves 2 through 12 are grossly intact. ASSESSMENT AND PLAN 1. New onset seizure. Continue seizure precautions, neurology consult, status post 1 g of Keppra. EEG and MRI of the brain of been ordered by neurology. 2. Electrolyte abnormalities with hypomagnesemia, hypocalcemia. 3. Acute urinary tract infection. Recent culture positive for Pseudomonas. Patient's been started on Zosyn 3.375 g IV piggyback every 8 hours, await urine culture, blood culture salts. 4. Acute kidney injury. Patient is status post 2 L of IV fluids. Recheck kidney function and electrolytes. 5. Uterine cancer status post total abdominal hysterectomy, bilateral salpingo- oophorectomy with resultant colostomy follows with [facility] oncology at [facility]. 6. Hypertension and hypertensive cardiovascular disease. Continue patient on metoprolol 50 mg orally every day. 7. DVT of the left lower extremity. Continue Xarelto 20 mg at bedtime. 8. Hyperlipidemia. Continue patient Lipitor 40 mg orally once every day. 9. Medical debility. Physical therapy evaluation 10. Leukopenia most likely secondary to underlying uterine cancer. 11. Small surgical wound, abdominal. Continue Aquacel Ag every other day. 12. DVT prophylaxis. Continue Xarelto. 13. GI prophylaxis. Protonix 40 mg IV push every 24 hours. Patient will be admitted to the hospital for a minimum of 2 night stay. DISCHARGE PLAN Home Impression and plan of care have been directed as dictated by the signing physician. Roya Jon nurse practitioner acting as scribe for signing physician. Past Medical History Past Medical History: Cancer, Deep Vein Thrombosis (DVT), Hyperlipidemia, Hypertension, Osteoarthritis (OA) Additional Past Medical History / Comment(s): Patient states she has not seen a physician for any medical problem in quite some time, probably at least 5 years. History of Any Multi-Drug Resistant Organisms: None Reported Past Surgical History: Breast Surgery, Hysterectomy Additional Past Surgical History / Comment(s): Partial thyroidectomy Past Anesthesia/Blood Transfusion Reactions: No Reported Reaction Past Psychological History: No Psychological Hx Reported Smoking Status: Never smoker Past Alcohol Use History: None Reported Past Drug Use History: None Reported - Past Family History Mother Family Medical History: Diabetes Mellitus Father Family Medical History: No Reported History Brother(s) Family Medical History: Diabetes Mellitus Sister(s) Family Medical History: Diabetes Mellitus Son(s) Family Medical History: No Reported History Medications and Allergies Home Medications Medication Instructions Recorded Confirmed Type Aspirin EC [Ecotrin] 325 mg PO HS 03/29/20 10/15/20 History Atorvastatin [Lipitor] 40 mg PO DAILY #30 tab 03/30/20 10/15/20 Rx Ferrous Sulfate [Slow Fe] 142 mg PO DAILY 10/15/20 10/15/20 History Magnesium Hydroxide [Milk of 2,400 mg PO DAILY 10/15/20 10/15/20 History Magnesia] Metoprolol Tartrate [Lopressor] 50 mg PO DAILY 10/15/20 10/15/20 History Ondansetron Odt [Zofran Odt] 4 mg PO Q8H PRN 10/15/20 10/15/20 History Polyethylene Glycol 3350 [Miralax] 17 gm PO DAILY 10/15/20 10/15/20 History Potassium Chloride ER [K-Dur 20] 20 meq PO BID 10/15/20 10/15/20 History Rivaroxaban [Xarelto] 20 mg PO HS 10/15/20 10/15/20 History Sennosides [Senna] 8.6 mg PO DAILY 10/15/20 10/15/20 History Allergies Allergy/AdvReac Type Severity Reaction Status Date / Time No Known Allergies Allergy Verified 10/15/20 14:53 Physical Exam Vitals: Vital Signs Temp Pulse Pulse Resp BP BP BP 10/16/20 04:00 99.1 F 110 H 18 111/79 10/16/20 02:00 110 H 16 10/16/20 00:00 97.6 F 105 H 15 107/76 10/15/20 21:45 102 H 16 110/78 10/15/20 20:00 98.0 F 68 16 115/62 10/15/20 19:53 98.1 F 103 H 16 107/70 10/15/20 17:28 98.1 F 99 16 108/75 10/15/20 13:09 98.3 F 129 H 18 99/71 Pulse Ox 10/16/20 04:00 99 10/16/20 02:00 10/16/20 00:00 98 10/15/20 21:45 98 10/15/20 20:00 95 10/15/20 19:53 96 10/15/20 17:28 98 10/15/20 13:09 100 Intake and Output 10/15/20 10/16/20 10/16/20 22:59 06:59 14:59 Intake Total 100 880 Balance 100 880 Intake: Intake, IV Titration 100 880 Amount Piperacillin-Tazobactam 3 100 .375 gm In Sodium Chloride 0.9% 100 ml @ 200 mls/hr IVPB ONCE [facility] Rx#:[id number] Piperacillin-Tazobactam 3 100 .375 gm In Sodium Chloride 0.9% 100 ml @ 200 mls/hr IVPB Q8HR [facility] Rx#:[id number] Sodium Chloride 0.9% 1, 780 000 ml @ 130 mls/hr IV . [id number] [facility] Rx#:[id number] Other: Voiding Method Bedpan Bedpan Weight 89.811 kg 82.5 kg Results CBC & Chem 7: 10/15/20 14:02 10/15/20 14:48 Labs: Abnormal Lab Results - Last 24 Hours (Table) 10/15/20 10/15/20 10/15/20 Range/Units 14:02 14:02 14:48 WBC 2.9 L (3.8-10.6) k/uL RDW 18.0 H (11.5-15.5) % Lymphocytes # 0.5 L (1.0-4.8) k/uL Sodium 135 L (137-145) mmol/L BUN 22 H (7-17) mg/dL Creatinine 1.26 H (0.52-1.04) mg/dL Glucose 105 H (74-99) mg/dL Calcium 8.1 L (8.4-10.2) mg/dL Magnesium 1.1 L (1.6-2.3) mg/dL Total Bilirubin 0.1 L (0.2-1.3) mg/dL Total Protein 5.8 L (6.3-8.2) g/dL Albumin 2.7 L (3.5-5.0) g/dL Urine Appearance Turbid H (Clear) Urine Protein 2+ H (Negative) Urine Blood Moderate H (Negative) Ur Leukocyte Esterase Large H (Negative) Urine RBC 59 H (0-5) /hpf Urine WBC >182 H (0-5) /hpf Urine WBC Clumps Many H (None) /hpf Urine Bacteria Occasional H (None) /hpf Urine Mucus Rare H (None) /hpf Microbiology - Last 24 Hours (Table) 10/15/20 14:02 Urine Culture - Preliminary Urine,Catheterized Thrombosis Risk Factor Assmnt - Choose All That Apply Each Factor Represents 1 point: Obesity (BMI >25) Each Risk Factor Represents 2 Points: Malignancy Each Risk Factor Represents 3 Points: History of DVT/PE Other congenital or acquired thrombophilia - If yes, enter type in comment: No Thrombosis Risk Factor Assessment Total Risk Factor Score: 6 Thrombosis Risk Factor Assessment Level: High Risk
[2020-10-16] MEDS: POTASSIUM CHLORIDE ER 20 MEQ TAB.ER PO SCH ×2 (09:09→20:34)
[2020-10-16] MEDS: FERROUS SULFATE 325 MG TAB PO SCH (09:09)
[2020-10-16] MEDS: SENNOSIDES 8.6 MG TAB PO SCH (09:09)
[2020-10-16] MEDS: MAGNESIUM HYDROXIDE 2,400 MG/10 ML CUP PO SCH (09:10)
[2020-10-16] MEDS: ATORVASTATIN 40 MG TAB PO SCH (09:10)
[2020-10-16] MEDS: polyethylene glycoL 3350 17 GM POWD.PACK PO SCH (09:10)
[2020-10-16 09:48] LABS: Ionized Calcium 4.7 mg/dL (4.5-5.3)
[2020-10-16 09:52] LABS: Anisocytosis Slight; Basophils % (A) 1 %; Eosinophils % (A) 0 %; Hypochromasia Slight; Lymphocytes # (A) 1.2 k/uL (1.0-4.8); Lymphocytes % (A) 20 %; MCH 30.7 pg (25.0-35.0); MCHC 31.3 g/dL (31.0-37.0); MCV 98.3 fL (80.0-100.0); Macrocytosis Slight; Mean Platelet Volume 7.5; Monocytes # (A) 0.4 k/uL (0-1.0); Monocytes % (A) 6 %; Neutrophils # (A) 4.2 k/uL (1.3-7.7); Neutrophils % (A) 71 %; RBC 1.91 m/uL (3.80-5.40); RDW 18.7 % (11.5-15.5)
[2020-10-16 09:57] LABS: HCT 18.8 % (34.0-46.0); HGB 5.9 gm/dL (11.4-16.0); Platelet Count 346 k/uL (150-450)
[2020-10-16 10:19] LABS: Magnesium 1.6 mg/dL (1.6-2.3)
--- NOTE | 2020-10-16 10:36 | P.CNNES ---
History of Present Illness Consult date: 10/16/20 Requesting physician: Terell Butterfield Reason for Consult: seizure History of Present Illness: This is a 70-year-old woman with medical history of uterine cancer who is on chemotherapy, total abdominal hysterectomy with colostomy, right DVT, hypertension, hyperlipidemia who presented emergency department on 10/15/2020 for a seizure. Per the ED note that the patient had 15 minute tonic-clonic seizure witnessed by her . Then it seems she had a nother seizure while at her doctors office of generalized-tonic clonic seizure and unsure duration and as result he called EMS per the primary physician nurse practioner. She denies any previous history of seizures. Prior to the seizure the patient stated she felt off. Patient could not tell me if she had urinary, bowel incontinence or tongue bite. Patient denies off any fever. Per the patient since the patient has been admitted that she has not had any further seizure overnight or today per her nurse. Regarding her history she stated, she recall being told it was normal, vaginal, no complication. No seizures as childhood. The patient's home medication includes Xarelto 20 mg daily at bedtime, Lipitor 40 mg daily, aspirin 325 daily, potassium, magnesium, metoprolol, MiraLAX. She is getting chemotherapy every 3 weeks and has port line for chemotherapy. She stated she had diagnosis of uterine cancer in year 2019. She could not tell me if there if family history of seizure. She denies alcohol use or tobacco use. Some other workup in the hospital consisted of: Initial vital signs is blood pressure of 99/71, heart rate of 129, respiratory of 18, temperature of 98.3 Fahrenheit oral and pulse ox of hypertension room air. CT of the head is reported as age-related atrophy and chronic small vessel ischemic change without acute intracranial process seen at this time. White blood cell is 2.9 which is low but the patient is getting chemotherapy. Chemistry panel is the sodium is 135 which is mildly low the creatinine is 1.26 which is mildly elevated. Otherwise glucose 105 which is slightly elevated but not significant. AST of 26 and ALT of 14, calcium of 8.1 which is low, magnesium is 1.1 which is also low. Urinalysis is suggestive of urinary tract infection. Review of Systems Review of system: The 12 point system was reviewed and apparent positive and negative per HPI. Past Medical History Past Medical History: Cancer, Deep Vein Thrombosis (DVT), Hyperlipidemia, Hypertension, Osteoarthritis (OA) Additional Past Medical History / Comment(s): Patient states she has not seen a physician for any medical problem in quite some time, probably at least 5 years. History of Any Multi-Drug Resistant Organisms: None Reported Past Surgical History: Breast Surgery, Hysterectomy Additional Past Surgical History / Comment(s): Partial thyroidectomy Past Anesthesia/Blood Transfusion Reactions: No Reported Reaction Past Psychological History: No Psychological Hx Reported Smoking Status: Never smoker Past Alcohol Use History: None Reported Past Drug Use History: None Reported - Past Family History Mother Family Medical History: Diabetes Mellitus Father Family Medical History: No Reported History Brother(s) Family Medical History: Diabetes Mellitus Sister(s) Family Medical History: Diabetes Mellitus Son(s) Family Medical History: No Reported History Medications and Allergies Home Medications Medication Instructions Recorded Confirmed Type Aspirin EC [Ecotrin] 325 mg PO HS 03/29/20 10/15/20 History Atorvastatin [Lipitor] 40 mg PO DAILY #30 tab 03/30/20 10/15/20 Rx Ferrous Sulfate [Slow Fe] 142 mg PO DAILY 10/15/20 10/15/20 History Magnesium Hydroxide [Milk of 2,400 mg PO DAILY 10/15/20 10/15/20 History Magnesia] Metoprolol Tartrate [Lopressor] 50 mg PO DAILY 10/15/20 10/15/20 History Ondansetron Odt [Zofran Odt] 4 mg PO Q8H PRN 10/15/20 10/15/20 History Polyethylene Glycol 3350 [Miralax] 17 gm PO DAILY 10/15/20 10/15/20 History Potassium Chloride ER [K-Dur 20] 20 meq PO BID 10/15/20 10/15/20 History Rivaroxaban [Xarelto] 20 mg PO HS 10/15/20 10/15/20 History Sennosides [Senna] 8.6 mg PO DAILY 10/15/20 10/15/20 History Allergies Allergy/AdvReac Type Severity Reaction Status Date / Time No Known Allergies Allergy Verified 10/15/20 14:53 Physical Examination - Vital Signs Vital Signs: Vital Signs Temp Pulse Pulse Resp BP BP BP 10/16/20 04:00 99.1 F 110 H 18 111/79 07/08/21 02:00 110 H 16 10/16/20 00:00 97.6 F 105 H 15 107/76 10/15/20 21:45 102 H 16 110/78 10/15/20 20:00 98.0 F 68 16 115/62 10/15/20 19:53 98.1 F 103 H 16 107/70 10/15/20 17:28 98.1 F 99 16 108/75 10/15/20 13:09 98.3 F 129 H 18 99/71 Pulse Ox 10/16/20 04:00 99 10/16/20 02:00 10/16/20 00:00 98 10/15/20 21:45 98 10/15/20 20:00 95 10/15/20 19:53 96 10/15/20 17:28 98 10/15/20 13:09 100 Intake and Output 10/15/20 10/16/20 10/16/20 22:59 06:59 14:59 Intake Total 100 880 Balance 100 880 Intake: Intake, IV Titration 100 880 Amount Piperacillin-Tazobactam 3 100 .375 gm In Sodium Chloride 0.9% 100 ml @ 200 mls/hr IVPB ONCE [facility] Rx#:[id number] Piperacillin-Tazobactam 3 100 .375 gm In Sodium Chloride 0.9% 100 ml @ 200 mls/hr IVPB Q8HR [facility] Rx#:[id number] Sodium Chloride 0.9% 1, 780 000 ml @ 130 mls/hr IV . Q7H42M [facility] Rx#:[id number] Other: Voiding Method Bedpan Bedpan Weight 89.811 kg 82.5 kg GENERAL: The patient is lying in bed and is not in acute distress. CHEST: The heart rate is regular rate rhythm. No murmurs to auscultation. No carotid bruit bilaterally. LUNG: Clear to auscultation bilaterally no wheezing noted throughout. Not labored breathing. ABDOMEN/GI: Bowel sounds present in all 4 quadrants. No tenderness to palpation throughout. NEUROLOGICAL: Higher mental function: The patient is drowsy but is awakeable, oriented to self and time. She stated she is in the hospital Patient is following commands. No aphasia and no neglect. Cranial nerves: The pupils are round, equal and reactive to light. Visual villalobos are full to confrontation throughout. Extraocular movement is intact no nystagmus is noted. Facial sensation is normal to touch throughout. The facial strength is normal throughout. Hearing is mildy decreased to hand rub zahraa aterally. Tongue is midline and moved [id number] without any difficulty. No tongue bite seen. No dysarthria is noted. Shoulder shrug is normal bilaterally. Motor: Gait is deferred. The strength is 5 over 5 throughout uppers. While lowers are 4+ proximally and ankles while knees are 3-4 bilaterally (and lower limited because of cooperation but denies of lower back pain) Normal tone and bulk. Cerebellum: Has dysmetria from finger to nose over the left. Otherwise normal over the right. Sensation: Sensation is normal to touch throughout. Reflexes (right/left): 1+. Plantars are mute bilaterally. Results - Laboratory Findings CBC and BMP: 10/16/20 08:52 10/15/20 14:48 Abnormal Lab Findings: Abnormal Labs 10/15/20 10/15/20 10/15/20 14:02 14:02 14:48 WBC 2.9 L RDW 18.0 H Lymphocytes # 0.5 L Sodium 135 L BUN 22 H Creatinine 1.26 H Glucose 105 H Calcium 8.1 L Magnesium 1.1 L Total Bilirubin 0.1 L Total Protein 5.8 L Albumin 2.7 L Urine Appearance Turbid H Urine Protein 2+ H Urine Blood Moderate H Ur Leukocyte Esterase Large H Urine RBC 59 H Urine WBC >182 H Urine WBC Clumps Many H Urine Bacteria Occasional H Urine Mucus Rare H Assessment and Plan Assessment: New onset seizure (who had two GTC seizure. One at home and one at her PCP office). Unknown exact cause at this time. Rule out brain metastasis (which can happen but is low percentage can cause this) and electrolyte imbalance provokes seizure. Electrolyte imbalance (Magnesium 1.1 and ?hypocalcemia 8.1 but will get ionized calcium) Acute Urinary tract infection Acute kidney insufficiency History of uterine cancer status post total abdominal hysterectomy and bilateral salpingo-oophorectomy with colostomy placement on chemotherapy Right DVT on Xarelto Hypertension Hyperlipidemia Plan: In the ED the patient was given Keppra 1000 mg once. I start the patient on Keppra 500 mg every 12 hours. I ordered a routine EEG and MRI the brain with and without Placed the patient on seizure precautions seizure pads. Every 4 hours neuro checks. I ordered ionized calcium. I'll defer the electrolyte imbalance correction to the primary team. We'll defer the rest of the medical management the primary team Patient was notified that the per the [place] DMV she cannot drive for 6 month until seizure free, to avoid the swimming unassisted, [place] or using heavy machinery. The plan is discussed with the patient's nurse. Thank you for the consultation. Jacky Obregon MD Neuro-Hospitalist Time with Patient: Greater than 30
[2020-10-16 10:55] VITALS: BMI 28.5
[2020-10-16] MEDS: levETIRAcetam 500 MG TAB PO SCH ×3 (12:05→20:34)
[2020-10-16] MEDS: METOPROLOL TARTRATE 50 MG TAB PO SCH ×2 (12:05→13:43)
[2020-10-16] MEDS ORDERED: IOPAMIDOL CONTRAST (ORAL USE) VIAL PO PRN (12:35)
[2020-10-16 12:50] LABS: Albumin 2.8 g/dL (3.5-5.0); Calcium 8.3 mg/dL (8.4-10.2); Potassium 4.6 mmol/L (3.5-5.1); Total Bilirubin 0.1 mg/dL (0.2-1.3)
[2020-10-16 12:56] LABS: Anisocytosis Slight; Hypochromasia Slight; MCH 32.1 pg (25.0-35.0); MCHC 32.9 g/dL (31.0-37.0); MCV 97.6 fL (80.0-100.0); Macrocytosis Slight; Mean Platelet Volume 7.9; Platelet Count 391 k/uL (150-450); RBC 1.82 m/uL (3.80-5.40); RDW 18.5 % (11.5-15.5); WBC 7.3 k/uL (3.8-10.6)
[2020-10-16 13:02] LABS: HCT 17.8 % (34.0-46.0); HGB 5.8 gm/dL (11.4-16.0)
[2020-10-16] MEDS ORDERED: PROCHLORPERAZINE INJ 10 MG/2 ML VIAL IVP PRN (13:19)
[2020-10-16 14:01] LABS: Glucose,Whole Blood 107 mg/dL (75-99)
[2020-10-16] MEDS: MAGNESIUM SULFATE-D5W PMX 1 GM in DEXTROSE/WATER 1 100ML.BAG IVPB SCH ×2 (14:10→20:35)
--- NOTE | 2020-10-16 15:58 | EEG ---
ELECTROENCEPHALOGRAM REPORT DATE OF SERVICE: 10/16/2020. CLINICAL HISTORY: This is a 70-year-old woman who presented to the emergency department because of two seizure-like activity. This video EEG is obtained to evaluate for seizure and epileptiform activity. RELEVANT MEDICATION: Keppra. EEG TYPE: A routine 21 channel EEG performed with video using the 10/20 electrode placement system. DESCRIPTION: Wakefulness and drowsiness are obtained. During wakefulness, there is a posterior dominant rhythm of [id number] voltage that is well modulated of 6-7 hertz activity. During drowsiness, there is slowing and attenuation of the background activity. There is no physiological stage 2 sleep architecture. There is no focal slowing. Interictal and ictal is none. ACTIVATION PROCEDURES: Photic stimulation did not evoke a posterior driving response. There is no photic abnormality. There is no abnormality during the photic stimulation. Hyperventilation is not performed. CLINICAL INTERPRETATION: This is an abnormal routine EEG. The background slowing is suggestive of mild to moderate encephalopathy. There are no focal slowing, epileptiform discharges or seizure on the EEG. Clinical correlation is recommended. MMODL / IJN: [id number] / [facility]
--- NOTE | 2020-10-16 16:21 | P.CNPUL ---
History of Present Illness Consult date: 10/16/20 Chief complaint: Suspected GI bleed, anemia, new onset seizures History of present illness: 70-year-old female patient was transferred to the intensive care unit due to concerns of GI bleed and profound anemia with a hemoglobin of 5.9. Noted the patient has history of uterine cancer diagnosed recently post total abdominal hysterectomy and bilateral salpingo-oophorectomy and diverticular colostomy and the patient has been receiving systemic chemotherapy on outpatient basis for [facility]. The patient was brought into the hospital originally because of having episodic seizures. The patient was having witnessed seizures as reported by the that were lasting between 5-10 minutes tonic and clonic in nature. She presented to her physician's office where she had another seizure and EMS was called to the scene and the patient was transferred to the hospital. Initially she was admitted to the medical floor. Later on moved to the intensive care unit because of her low hemoglobin. Note that she has colostomy. No bloody output in the colostomy bag. No hematemesis. No abdominal distention. Surgical site is dry clean and intact. It has not completely healed and there is an area where there is small amount of packing in that area which is open measuring 1 cm in size and is not infected or draining at this point in time. She also has history of right lower extremity DVT and the patient has an IVC filter in place and she's been taking Xarelto 20 mg on outpatient basis. Her last systemic chemotherapy was around 3 weeks ago. She does have some chronic anemia. No previous history of seizure activity. No alcohol rhythm. No head trauma. CAT scan of the brain was essentially negative. The patient was seen by neurology and the patient was started on Keppra. Currently she is awake and alert and she is following commands and answering questions appropriately. She is afebrile and she is hemodynamically stable. CAT scan of the brain showed age-related atrophy along with chronic small vessel ischemic change. The white cell count was 2.9 probably related to systemic chemotherapy. UA may indicate the possibility of underlying infection. Electrolytes showed a low magnesium with zinc replaced. LFTs are normal. Calcium level is at 8.1 EEG was completed and was abnormal and there was backg round slowing with mild to moderate encephalopathy. No focal epileptic foci seen. Review of Systems Constitutional: No fever, no chills, no night sweats. No weight change. No weakness, fatigue or lethargy. No daytime sleepiness. EENT: No headache. No blurred vision or double vision, no loss of vision. No loss of Hearing, no ringing in the ears, no dizziness. No nasal drainage or congestion. No epistaxis. No sore throat. Lungs: No shortness of breath, cough, no sputum production. No wheezing. Cardiovascular: No chest pain, no lower extremity edema. No palpitations. No paroxysmal nocturnal dyspnea. No orthopnea. No lightheadedness or dizziness. No syncopal episodes. Abdominal: No abdominal pain. No nausea, vomiting. No diarrhea. No constipation. No bloody or tarry stools.. No loss of appetite. Genitourinary: No dysuria, increased frequency, urgency. No urinary retention. Musculoskeletal: No myalgias. No muscle weakness, no gait dysfunction, no frequent falls. No back pain. No neck pain. Integumentary: Positive abdominal wound, chronic, no lesions. No rash or pruritus. No unusual bruising. No change in hair or nails. Neurologic: No aphasia. No facial droop. No change in mentation. No head injury. No headache. No paralysis. No paresthesia. Positive seizure activity. Psychiatric: No depression. No anxiety. No mood swings. Endocrine: No abnormal blood sugars. No weight change. No excessive sweating or thirst. No cold intolerance. Constitutional: Reports fatigue, Reports poor appetite, Reports weakness, Reports weight loss Eyes: denies as per HPI, denies blurred vision, denies bulging eye, denies decreased vision, denies diplopia, denies discharge, denies dry eye, denies irritation, denies itching, denies pain, denies photophobia, denies loss of peripheral vision, denies loss of vision, denies tunnel vision/blind spots Ears: deny: decreased hearing, ear discharge, earache, tinnitus Ears, nose, mouth and throat: Reports as per HPI Breasts: absent: as per HPI, change in shape, gynecomastia, masses, nipple discharge, pain, skin changes, swelling Cardiovascular: Reports decreased exercise tolerance, Reports dyspnea on exertion Respiratory: Reports as per HPI Gastrointestinal: Reports as per HPI, Reports loss of appetite Genitourinary: Reports as per HPI Menstruation: Reports as per HPI Musculoskeletal: Reports as per HPI Musculoskeletal: bilateral: ankle swelling, absent: ankle pain, ankle stiffness Integumentary: Reports as per HPI Neurological: Reports as per HPI, Reports seizures, Reports weakness Psychiatric: Reports as per HPI Endocrine: Reports as per HPI Hematologic/Lymphatic: Reports as per HPI Allergic/Immunologic: Reports as per HPI Past Medical History Past Medical History: Cancer, Deep Vein Thrombosis (DVT), Hyperlipidemia, Hypertension, Osteoarthritis (OA) Additional Past Medical History / Comment(s): Patient states she has not seen a physician for any medical problem in quite some time, probably at least 5 years. History of Any Multi-Drug Resistant Organisms: None Reported Past Surgical History: Breast Surgery, Hysterectomy Additional Past Surgical History / Comment(s): Partial thyroidectomy Past Anesthesia/Blood Transfusion Reactions: No Reported Reaction Past Psychological History: No Psychological Hx Reported Smoking Status: Never smoker Past Alcohol Use History: None Reported Past Drug Use History: None Reported - Past Family History Mother Family Medical History: Diabetes Mellitus Father Family Medical History: No Reported History Brother(s) Family Medical History: Diabetes Mellitus Sister(s) Family Medical History: Diabetes Mellitus Son(s) Family Medical History: No Reported History Medications and Allergies Home Medications Medication Instructions Recorded Confirmed Type Aspirin EC [Ecotrin] 325 mg PO HS 03/29/20 10/15/20 History Atorvastatin [Lipitor] 40 mg PO DAILY #30 tab 03/30/20 10/15/20 Rx Ferrous Sulfate [Slow Fe] 142 mg PO DAILY 10/15/20 10/15/20 History Magnesium Hydroxide [Milk of 2,400 mg PO DAILY 10/15/20 10/15/20 History Magnesia] Metoprolol Tartrate [Lopressor] 50 mg PO DAILY 10/15/20 10/15/20 History Ondansetron Odt [Zofran Odt] 4 mg PO Q8H PRN 10/15/20 10/15/20 History Polyethylene Glycol 3350 [Miralax] 17 gm PO DAILY 10/15/20 10/15/20 History Potassium Chloride ER [K-Dur 20] 20 meq PO BID 10/15/20 10/15/20 History Rivaroxaban [Xarelto] 20 mg PO HS 10/15/20 10/15/20 History Sennosides [Senna] 8.6 mg PO DAILY 10/15/20 10/15/20 History Allergies Allergy/AdvReac Type Severity Reaction Status Date / Time No Known Allergies Allergy Verified 10/15/20 14:53 Physical Exam Vitals: Vital Signs Temp Pulse Pulse Resp BP BP BP 10/16/20 15:11 98.5 F 109 H 18 107/74 10/16/20 14:56 98.7 F 109 H 14 112/76 10/16/20 13:18 127 H 17 113/86 10/16/20 12:40 127 H 17 10/16/20 12:00 97.9 F 123 H 18 113/84 10/16/20 09:02 10/16/20 08:00 97.7 F 113 H 17 112/79 10/16/20 04:00 99.1 F 110 H 18 111/79 10/16/20 02:00 110 H 16 10/16/20 00:00 97.6 F 105 H 15 107/76 10/15/20 21:45 102 H 16 110/78 10/15/20 20:00 98.0 F 68 16 115/62 10/15/20 19:53 98.1 F 103 H 16 107/70 10/15/20 17:28 98.1 F 99 16 108/75 Pulse Ox 10/16/20 15:11 95 10/16/20 14:56 94 L 10/16/20 13:18 100 10/16/20 12:40 10/16/20 12:00 99 10/16/20 09:02 99 10/16/20 08:00 100 10/16/20 04:00 99 10/16/20 02:00 10/16/20 00:00 98 10/15/20 21:45 98 10/15/20 20:00 95 10/15/20 19:53 96 10/15/20 17:28 98 Intake and Output 10/16/20 10/16/20 10/16/20 06:59 14:59 22:59 Intake Total 880 240 Balance 880 240 Intake: Intake, IV Titration 880 Amount Piperacillin-Tazobactam 3 100 .375 gm In Sodium Chloride 0.9% 100 ml @ 200 mls/hr IVPB ONCE [facility] Rx#:[id number] Sodium Chloride 0.9% 1, 780 000 ml @ 130 mls/hr IV . Q7H42M [facility] Rx#:[id number] Oral 240 Other: Voiding Method Bedpan Bedpan Diaper Incontinent # Voids 1 Weight 82.5 kg 82.5 kg Gen: This is a 70-year-old female, resting in bed and appears to be comfortable and in no acute distress. Head exam was generally normal. There was no scleral icterus or corneal arcus. Mucous membranes were moist. HEENT: Head is atraumatic, normocephalic. Pupils equal, round. Sclerae is anicteric. NECK: Supple. No JVD. No lymphadenopathy. No thyromegaly. Chest: Decreased breath sounds at bases, few rhonchi, no expiratory wheezes, no chest wall tenderness, no intercostal retractions. quality assurance monitor chassis sinus rhythm. Heart: First heart sound is depressed, second heart sounds normal, there is s ystolic ejection murmur 2/6 located in the left sternal border. ABDOMEN: Soft. Bowel sounds are present. No masses. No tenderness. Small open wound at the previous surgical site. Colostomy in place. He no active drainage from the abdominal wound. No direct tenderness. No rebound tenderness. No guarding. Colostomy site is functional and intact. EXTREMITIES: No pedal edema. No calf tenderness. NEUROLOGICAL: Patient is awake, alert and oriented x3. Cranial nerves 2 through 12 are grossly intact. Results - Laboratory Findings CBC and BMP: 10/16/20 12:08 10/16/20 08:25 Abnormal lab findings: Abnormal Labs 10/15/20 10/15/20 10/15/20 14:02 14:02 14:48 WBC 2.9 L RBC Hgb Hct RDW 18.0 H Lymphocytes # 0.5 L Sodium 135 L BUN 22 H Creatinine 1.26 H Glucose 105 H POC Glucose (mg/dL) Calcium 8.1 L Magnesium 1.1 L Total Bilirubin 0.1 L Total Protein 5.8 L Albumin 2.7 L Urine Appearance Turbid H Urine Protein 2+ H Urine Blood Moderate H Ur Leukocyte Esterase Large H Urine RBC 59 H Urine WBC >182 H Urine WBC Clumps Many H Urine Bacteria Occasional H Urine Mucus Rare H Crossmatch 10/16/20 10/16/20 10/16/20 08:25 08:52 12:08 WBC RBC 1.91 L Hgb 5.9 L* D Hct 18.8 L* RDW 18.7 H Lymphocytes # Sodium BUN 21 H Creatinine 1.17 H Glucose POC Glucose (mg/dL) Calcium 8.3 L Magnesium Total Bilirubin 0.1 L Total Protein 6.0 L Albumin 2.8 L Urine Appearance Urine Protein Urine Blood Ur Leukocyte Esterase Urine RBC Urine WBC Urine WBC Clumps Urine Bacteria Urine Mucus Crossmatch See Detail 10/16/20 10/16/20 12:08 14:00 WBC RBC 1.82 L Hgb 5.8 L* Hct 17.8 L* RDW 18.5 H Lymphocytes # Sodium BUN Creatinine Glucose POC Glucose (mg/dL) 107 H Calcium Magnesium Total Bilirubin Total Protein Albumin Urine Appearance Urine Protein Urine Blood Ur Leukocyte Esterase Urine RBC Urine WBC Urine WBC Clumps Urine Bacteria Urine Mucus Crossmatch - Diagnostic Findings Chest x-ray: image reviewed Assessment and Plan Plan: 1 anemia, multifactorial, postchemotherapy along with a component of chronic anemia. No clear indication for an acute GI bleed. The patient isn't anticoagulated with Xarelto. Xarelto will placed on hold and we'll watch the patient's hemoglobin. The patient will be receiving a total of 2 units of packed RBC. The patient is hemodynamically stable. The reported hemoglobin that was up to 12 from 10/15/2020 probably is a wrong or a representation of a hemoconcentrated blood. The patient does have chronic anemia as reported on previous blood work. 2 new onset seizure, CAT scan of the brain showing no acute abnormalities. No evidence of any METAL GRINDER metastases based on the CAT scan of the brain. Some minor e lectrode abnormalities at the time of admission. Currently on Keppra and neurology is on consult. 3 uterine cancer post-abdominal hysterectomy and bilateral salpingo-oophorectomy and diverticular colostomy receiving systemic chemotherapy 4 history of DVT maternal Xarelto on outpatient basis. The patient has a IVC filter in place. She has history of a right lower extremity DVT 5 hypertension 6 hyperlipidemia 7 suspected UTI 8 hypomagnesemia, corrected Incomplete healing of an abdominal wound amount on signs of an acute infection Plan Complete transfusion with a total of 2 units of packed RBC and monitor the hemoglobin Keep Xarelto on hold CAT scan of the abdomen and pelvis GEN surgical consultation Keep the patient nothing by mouth for now Keppra for seizure activity Neurologic consultation May benefit from MRI of the brain to rule out any METAL GRINDER metastases Seizure precautions Electrolyte management EEG was noted Keep the patient ICU for further monitoring IV Zosyn as an empiric antibiotic coverage We'll continue to follow
--- NOTE | 2020-10-16 16:35 | P.GSCN ---
History of Present Illness Consult date: 10/16/20 Reason for Consult: Anemia History of present illness: 70-year-old female came to the hospital for evaluation of new onset seizures. Patient with recent diagnosis of uterine cancer underwent hysterectomy in February of last year. Has been undergoing chemotherapy for that reason. Patient on anticoagulation for history of DVT. Today the patient was found to have a drop in hemoglobin from 12.1-5.9. She does have a history of previous anemia with previous hospitalizations showing hemoglobin in the 8 and 9 range. Repeat hemoglobin today 5.8. She has an ostomy after her previous surgery. Ostomy has brown stool. Yesterday she did have episodes of emesis. No obvious blood was present. CAT scan abdomen and pelvis was ordered for today. Patient describes mild abdominal pain but no pain presently. Review of Systems The patient denies any acute changes in vision or hearing, no dysphagia or odynophagia, no chest pain or shortness of breath, no dysuria or hematuria, no headache, no runny nose, no rectal bleeding or melena, no unexplained weight loss Past Medical History Past Medical History: Cancer, Deep Vein Thrombosis (DVT), Hyperlipidemia, Hypertension, Osteoarthritis (OA) Additional Past Medical History / Comment(s): Patient states she has not seen a physician for any medical problem in quite some time, probably at least 5 years. History of Any Multi-Drug Resistant Organisms: None Reported Past Surgical History: Breast Surgery, Hysterectomy Additional Past Surgical History / Comment(s): Partial thyroidectomy Past Anesthesia/Blood Transfusion Reactions: No Reported Reaction Past Psychological History: No Psychological Hx Reported Smoking Status: Never smoker Past Alcohol Use History: None Reported Past Drug Use History: None Reported - Past Family History Mother Family Medical History: Diabetes Mellitus Father Family Medical History: No Reported History Brother(s) Family Medical History: Diabetes Mellitus Sister(s) Family Medical History: Diabetes Mellitus Son(s) Family Medical History: No Reported History Medications and Allergies Home Medications Medication Instructions Recorded Confirmed Type Aspirin EC [Ecotrin] 325 mg PO HS 03/29/20 10/15/20 History Atorvastatin [Lipitor] 40 mg PO DAILY #30 tab 03/30/20 10/15/20 Rx Ferrous Sulfate [Slow Fe] 142 mg PO DAILY 10/15/20 10/15/20 History Magnesium Hydroxide [Milk of 2,400 mg PO DAILY 10/15/20 10/15/20 History Magnesia] Metoprolol Tartrate [Lopressor] 50 mg PO DAILY 10/15/20 10/15/20 History Ondansetron Odt [Zofran Odt] 4 mg PO Q8H PRN 10/15/20 10/15/20 History Polyethylene Glycol 3350 [Miralax] 17 gm PO DAILY 10/15/20 10/15/20 History Potassium Chloride ER [K-Dur 20] 20 meq PO BID 10/15/20 10/15/20 History Rivaroxaban [Xarelto] 20 mg PO HS 10/15/20 10/15/20 History Sennosides [Senna] 8.6 mg PO DAILY 10/15/20 10/15/20 History Allergies Allergy/AdvReac Type Severity Reaction Status Date / Time No Known Allergies Allergy Verified 10/15/20 14:53 Surgical - Exam Vital Signs Temp Pulse Resp BP Pulse Ox 98.3 F 129 H 18 99/71 100 10/15/20 13:09 10/15/20 13:09 10/15/20 13:09 10/15/20 13:09 10/15/20 13:09 Physical exam: General: Well-developed, well-nourished HEENT: Normocephalic, sclerae nonicteric Abdomen: Mild distention, left-sided ostomy, small epigastric wound from previous scar site. Nontender Extremities: No edema Neuro: Alert and oriented Results - Labs 10/16/20 12:08 10/16/20 08:25 Abnormal Lab Results - Last 24 Hours (Table) 10/15/20 10/16/20 10/16/20 Range/Units 14:02 08:25 08:52 RBC 1.91 L (3.80-5.40) m/uL Hgb 5.9 L* D (11.4-16.0) gm/dL Hct 18.8 L* (34.0-46.0) % RDW 18.7 H (11.5-15.5) % BUN 21 H (7-17) mg/dL Creatinine 1.17 H (0.52-1.04) mg/dL POC Glucose (mg/dL) (75-99) mg/dL Calcium 8.3 L (8.4-10.2) mg/dL Total Bilirubin 0.1 L (0.2-1.3) mg/dL Total Protein 6.0 L (6.3-8.2) g/dL Albumin 2.8 L (3.5-5.0) g/dL Urine Appearance Turbid H (Clear) Urine Protein 2+ H (Negative) Urine Blood Moderate H (Negative) Ur Leukocyte Esterase Large H (Negative) Urine RBC 59 H (0-5) /hpf Urine WBC >182 H (0-5) /hpf Urine WBC Clumps Many H (None) /hpf Urine Bacteria Occasional H (None) /hpf Urine Mucus Rare H (None) /hpf Crossmatch 10/16/20 10/16/20 10/16/20 Range/Units 12:08 12:08 14:00 RBC 1.82 L (3.80-5.40) m/uL Hgb 5.8 L* (11.4-16.0) gm/dL Hct 17.8 L* (34.0-46.0) % RDW 18.5 H (11.5-15.5) % BUN (7-17) mg/dL Creatinine (0.52-1.04) mg/dL POC Glucose (mg/dL) 107 H (75-99) mg/dL Calcium (8.4-10.2) mg/dL Total Bilirubin (0.2-1.3) mg/dL Total Protein (6.3-8.2) g/dL Albumin (3.5-5.0) g/dL Urine Appearance (Clear) Urine Protein (Negative) Urine Blood (Negative) Ur Leukocyte Esterase (Negative) Urine RBC (0-5) /hpf Urine WBC (0-5) /hpf Urine WBC Clumps (None) /hpf Urine Bacteria (None) /hpf Urine Mucus (None) /hpf Crossmatch See Detail Microbiology - Last 24 Hours (Table) 10/15/20 14:02 Urine Culture - Preliminary Urine,Catheterized Diabetes panel 10/16/20 Range/Units 08:25 Sodium 138 (137-145) mmol/L Potassium 4.6 (3.5-5.1) mmol/L Chloride 107 (98-107) mmol/L Carbon Dioxide 24 (22-30) mmol/L BUN 21 H (7-17) mg/dL Creatinine 1.17 H (0.52-1.04) mg/dL Glucose 99 (74-99) mg/dL Calcium 8.3 L (8.4-10.2) mg/dL AST 29 (14-36) U/L ALT 13 (4-34) U/L Alkaline Phosphatase 108 (38-126) U/L Total Protein 6.0 L (6.3-8.2) g/dL Albumin 2.8 L (3.5-5.0) g/dL Calcium panel 10/16/20 10/16/20 Range/Units 08:25 08:52 Calcium 8.3 L (8.4-10.2) mg/dL Ionized Calcium Kemi 4.7 (4.5-5.3) mg/dL Albumin 2.8 L (3.5-5.0) g/dL Pituitary panel 10/16/20 Range/Units 08:25 Sodium 138 (137-145) mmol/L Potassium 4.6 (3.5-5.1) mmol/L Chloride 107 (98-107) mmol/L Carbon Dioxide 24 (22-30) mmol/L BUN 21 H (7-17) mg/dL Creatinine 1.17 H (0.52-1.04) mg/dL Glucose 99 (74-99) mg/dL Calcium 8.3 L (8.4-10.2) mg/dL Adrenal panel 10/16/20 Range/Units 08:25 Sodium 138 (137-145) mmol/L Potassium 4.6 (3.5-5.1) mmol/L Chloride 107 (98-107) mmol/L Carbon Dioxide 24 (22-30) mmol/L BUN 21 H (7-17) mg/dL Creatinine 1.17 H (0.52-1.04) mg/dL Glucose 99 (74-99) mg/dL Calcium 8.3 L (8.4-10.2) mg/dL Total Bilirubin 0.1 L (0.2-1.3) mg/dL AST 29 (14-36) U/L ALT 13 (4-34) U/L Alkaline Phosphatase 108 (38-126) U/L Total Protein 6.0 L (6.3-8.2) g/dL Albumin 2.8 L (3.5-5.0) g/dL Assessment and Plan (1) Anemia Narrative/Plan: 70-year-old female with acute drop in hemoglobin. Agree with plans for CT abdomen and pelvis with IV contrast. No oral contrast needed. We'll review those films. Will remain on surgical standby. Hold anticoagulation. Current Visit: Yes Status: Acute Code(s): D64.9 - ANEMIA, UNSPECIFIED SNOMED Code(s): 680241486
[2020-10-16] MEDS: ASPIRIN 325 MG TAB PO SCH (20:34)
--- NOTE | 2020-10-16 22:38 | CT ---
EXAMINATION TYPE: CT abdomen pelvis w con DATE OF EXAM: 10/16/2020 COMPARISON: 02/06/2020 HISTORY: acue enemia CT DLP: 929.6 mGycm Automated exposure control for dose reduction was used. CONTRAST: Performed with IV Contrast, patient injected with 80 mL of Isovue 300. There are bilateral pleural effusions. There is bilateral basilar pulmonary infiltrates. Heart appear s borderline enlarged. There is hiatal hernia. Liver shows no focal defect. Gallbladder is intact. Sp olga is intact. The stomach is intact. I see no evidence of pancreatic mass. The bile ducts are not d ilated. There is no adrenal mass. Kidneys show satisfactory contrast opacification. There is no hydronephrosi s. There is mild abdominal ascites fluid in the upper abdomen. There is some fluid in the paracolic g utters and around the liver and spleen. There is left side hydronephrosis and hydroureter. Distal ure ter is not well seen. Urinary bladder is intact. There is stent in the left iliac vein. There is some mild perirectal edema. There are surgical clips in the pelvis. There is apparent hysterectomy. There are some dilated fluid-filled small bowel loops in the mid abdomen. These measure up to 5 cm There is an ostomy in the upper abdomen. It is not clear if this is a colostomy or ileostomy. There is gas and fecal material in the transverse colon. I see no evidence of free air. There is delayed co ntrast appearance in the left kidney. The lumbar vertebra have fairly normal alignment. There is no compression fracture. The bony pelvis i s intact. The hip joints are intact. There is no sign of hip dysplasia. IMPRESSION: There is mild abdominal ascites in the upper abdomen. There is bilateral lower lobe pulmonary infiltr ates and atelectasis and pleural effusion. Dilated small bowel in the upper abdomen consistent with high-grade mechanical small bowel obstructio n. Transition point is difficult to identify but more likely related to the surgery in the pelvis wit h surgical clips and dilated loops. Obstruction appears new compared to old exam. There is left-sided hydronephrosis and hydroureter which is also new compared to old exam. Lower lobe pulmonary abnormalities also new compared to old exam.
[2020-10-17] MEDS: PIPERACILLIN-TAZOBACTAM 3.375 GM in SODIUM CHLORIDE 0.9% 100 ML IVPB SCH ×3 (00:18→16:42)
[2020-10-17 04:38] LABS: Anisocytosis Slight; Basophils % (A) 0 %; Eosinophils % (A) 0 %; HCT 24.3 % (34.0-46.0); Lymphocytes # (A) 1.4 k/uL (1.0-4.8); Lymphocytes % (A) 27 %; MCH 30.6 pg (25.0-35.0); MCHC 33.2 g/dL (31.0-37.0); Mean Platelet Volume 7.7; Monocytes # (A) 0.4 k/uL (0-1.0); Monocytes % (A) 8 %; Neutrophils # (A) 3.1 k/uL (1.3-7.7); Neutrophils % (A) 62 %; Platelet Count 314 k/uL (150-450); Poikilocytosis Slight; RBC 2.64 m/uL (3.80-5.40); RDW 18.9 % (11.5-15.5)
[2020-10-17 04:39] LABS: HGB 8.1 gm/dL (11.4-16.0); MCV 92.1 fL (80.0-100.0)
[2020-10-17 05:03] LABS: Albumin 2.4 g/dL (3.5-5.0); Calcium 8.2 mg/dL (8.4-10.2); Potassium 4.5 mmol/L (3.5-5.1); Total Bilirubin 0.2 mg/dL (0.2-1.3); Total Protein 5.5 g/dL (6.3-8.2)
[2020-10-17] MEDS: polyethylene glycoL 3350 17 GM POWD.PACK PO SCH (08:54)
[2020-10-17] MEDS: MAGNESIUM HYDROXIDE 2,400 MG/10 ML CUP PO SCH (08:54)
[2020-10-17] MEDS: SENNOSIDES 8.6 MG TAB PO SCH (08:55)
[2020-10-17] MEDS: METOPROLOL TARTRATE 50 MG TAB PO SCH (08:58)
[2020-10-17] MEDS: FERROUS SULFATE 325 MG TAB PO SCH (08:58)
[2020-10-17] MEDS: levETIRAcetam 500 MG TAB PO SCH ×2 (08:58→20:18)
[2020-10-17] MEDS: POTASSIUM CHLORIDE ER 20 MEQ TAB.ER PO SCH ×2 (08:59→20:18)
[2020-10-17] MEDS: ATORVASTATIN 40 MG TAB PO SCH (08:59)
--- NOTE | 2020-10-17 09:02 | P.PN ---
Subjective Progress Note Date: 10/17/20 HISTORY OF PRESENT ILLNESS This is a 70-year-old -[place] female with a previous medical history significant for hypertension and hypertensive cardiovascular disease, hyperl ipidemia, uterine cancer status post total abdominal hysterectomy and salpingectomy oophorectomy and followed with [facility] oncologist at [facility] in [place], DVT status post thrombectomy and stent placement and IVC filter. Patient's last hospitalization was in March 2020 at which time she was treated after a fall with left lower extremity weakness. She did have elevated troponins at that time with abnormal EKG but had recently undergone pharmacological stress test and was cleared by cardiology. Patient barely had a seizure yesterday that lasted about 15 minutes, colonic tonic-type seizure that was witnessed by her and she also had a seizure while at the office. EMS was called to transport the patient to the hospital. Patient presented to [facility] emergency center for evaluation by EMS. Upon arrival she was oriented 3. She was found to be afebrile, initial heart rate 129, blood pressure 99/71, pulse ox 100%. EKG was a sinus tachycardia. WBC 2.9, hemoglobin 12.1, platelet count 171. Sodium 135, potassium 4.5, chloride 101, CO2 25, BUN 22 and creatinine 1.26. Blood sugar 105. Calcium 8.1, magnesium 1.1. Total bilirubin 0.1, AST 26, ALT 14, alkaline phosphatase 105. Albumin 2.7. Urinalysis was turbid, blood moderate, leukoesterase large, WBCs greater than 182 with WBC clumps many and bacteria occasional. Lactic acid was 1.4. Ammonia level less than 9. Troponin 0.018. Urine culture is in process. CAT scan of the brain showed age related atrophy and chronic small vessel ischemic change without acute intracranial process. M agnesium was replaced with 2 g IV piggyback, status post 2 L of IV fluids. Patient was started on IV fluids, IV Keppra and neurology consult requested. She has remained afebrile, heart rate in the low 100s and blood pressure 111/79. 10/17: Hemoglobin came back yesterday at 5.9 and patient had episode of emesis the nurse reported as fecal-type material. Patient was ordered for 2 units of packed RBCs and transferred into the intensive care unit, consult added for undercollar baster and general surgery. Repeat hemoglobin today is 8.1 after 2 units of packed RBCs. WBC 5.0 and platelet count 314. Electrolytes are normal. BUN 16 and creatinine 1.17. Total bilirubin 0.2, AST 49, ALT 12, alkaline ph osphatase 110. Albumin 2.4. Urine cultures positive for group D enterococcus. Blood culture no growth after 24 hours., CAT scan of the abdomen and pelvis reveals mild abdominal ascites in the upper abdomen. Bilateral lower lobe pulmonary infiltrates and atelectasis and pleural effusion. Dilated small bowel in the upper abdomen consistent with high-grade mechanical small bowel obstruction. Transition point is difficult to identify but more likely related to the surgery and the pelvis and surgical clips and dilated loops. Obstruction appears new compared to old exam. There is left-sided hydronephrosis and hydroureter which is also new compared to old. Lower lobe pulmonary abnormaliti es. Patient is seen today in the intensive care unit. She states she is feeling a lot better from yesterday and unfortunately patient ate breakfast. Patient was supposed to be nothing by mouth. She denies any vomiting. No output from colostomy. Dr. Kumar has advised to transfer patient to [facility]. Case management has been contacted to start arrangements. REVIEW OF SYSTEMS Constitutional: No fever, no chills, no night sweats. No weight change. No weakness, fatigue or lethargy. No daytime sleepiness. EENT: No headache. No blurred vision or double vision, no loss of vision. No loss of Hearing, no ringing in the ears, no dizziness. No nasal drainage or con gestion. No epistaxis. No sore throat. Lungs: No shortness of breath, cough, no sputum production. No wheezing. Cardiovascular: No chest pain, no lower extremity edema. No palpitations. No paroxysmal nocturnal dyspnea. No orthopnea. No lightheadedness or dizziness. No syncopal episodes. Abdominal: No abdominal pain. No nausea, vomiting. No diarrhea. Reports constipation. No bloody or tarry stools.. No loss of appetite. Genitourinary: No dysuria, increased frequency, urgency. No urinary retention. Musculoskeletal: No myalgias. No muscle weakness, no gait dysfunction, no frequent falls. No back pain. No neck pain. Integumentary: Positive abdominal wound, chronic, no lesions. No rash or pruritus. No unusual bruising. No change in hair or nails. Neurologic: No aphasia. No facial droop. No change in mentation. No head injury. No headache. No paralysis. No paresthesia. Positive seizure activity. Psychiatric: No depression. No anxiety. No mood swings. Endocrine: No abnormal blood sugars. No weight change. No excessive sweating or thirst. No cold intolerance. PHYSICAL EXAMINATION Gen: This is a 70-year-old female, resting in bed and appears to be comfortable and in no acute distress. HEENT: Head is atraumatic, normocephalic. Pupils equal, round. Sclerae is anicteric. NECK: Supple. No JVD. No lymphadenopathy. No thyromegaly. Chest: Decreased breath sounds at bases, few rhonchi, no expiratory wheezes, no chest wall tenderness, no intercostal retractions. awake overnight monitor sinus rhythm. Heart: First heart sound is depressed, second heart sounds normal, there is systolic ejection murmur 2/6 located in the left sternal border. ABDOMEN: Soft. Bowel sounds are present. No masses. No tenderness. Small open wound at the previous surgical site. Colostomy in place. EXTREMITIES: No pedal edema. No calf tenderness. NEUROLOGICAL: Patient is awake, alert and oriented x3. Cranial nerves 2 through 12 are grossly intact. ASSESSMENT AND PLAN 1. New onset seizure. Continue seizure precautions, neurology consult appreciated, status post 1 g of Keppra and continued on Keppra 500 mg every 12 hours. EEG and MRI of the brain of been ordered by neurology. 2. Electrolyte abnormalities with hypomagnesemia, hypocalcemia. 3. Acute urinary tract infection. Recent culture positive for Pseudomonas. Patient's been started on Zosyn 3.375 g IV piggyback every 8 hours, await urine culture, blood culture salts. 4. Acute kidney injury. Patient is status post 2 L of IV fluids. Recheck kidney function and electrolytes. 5. High-grade mechanical small bowel obstruction, present on admission. Patient to be nothing by mouth status, general surgery consult appreciated, CAT scan of the abdomen and pelvis as above. Dr. Kumar has advised transfer to [facility]. 6. Left-sided hydronephrosis and hydroureter. Continue to monitor urinary function. 7. Uterine cancer status post total abdominal hysterectomy, bilateral salpingo- oophorectomy with resultant colostomy follows with [facility] oncology at [facility]. 8. Hypertension and hypertensive cardiovascular disease. Continue patient on metoprolol 50 mg orally every day. 9. DVT of the left lower extremity. Continue Xarelto 20 mg at bedtime. 10. Hyperlipidemia. Continue patient Lipitor 40 mg orally once every day. 11. Medical debility. Physical therapy evaluation 12. Leukopenia most likely secondary to underlying uterine cancer. 13. Small surgical wound, abdominal. Continue Aquacel Ag every other day. 14. DVT prophylaxis. Xarelto on hold. 15. GI prophylaxis. Protonix 40 mg IV push every 24 hours. DISCHARGE PLAN Home Impression and plan of care have been directed as dictated by the signing physician. Roya Jon nurse practitioner acting as scribe for signing physician. Objective - Vital Signs Vital signs: Vital Signs Temp 98.4 F 10/17/20 04:00 Pulse 99 10/17/20 07:00 Resp 14 10/17/20 07:00 BP 118/80 10/17/20 07:00 Pulse Ox 95 10/17/20 07:00 Intake & Output 10/16/20 10/17/20 10/17/20 18:59 06:59 18:59 Intake Total 925 1945 75 Output Total 200 Balance 925 1745 75 Weight 82.5 kg 78 kg Intake: IV 375 1275 75 Magnesium Sulfate-D5w Pmx 100 1 gm In Dextrose/Water 1 100ml.bag @ 100 mls/hr IVPB Q1H DANIEL Rx#: [id number] Piperacillin-Tazobactam 3 100 .375 gm In Sodium Chloride 0.9% 100 ml @ 200 mls/hr IVPB Q8HR DANIEL Rx#:[id number] Sodium Chloride 0.9% 1, 375 1075 75 000 ml @ 75 mls/hr IV . [id number] DANIEL Rx#:[id number] Oral 240 50 Blood Product 310 620 Rc As-1 Unit 0 310 [id number] Rc Pheresis 2 As3 Unit 310 [id number] Output: Urine 200 Other: Voiding Method Bedpan Bedpan Diaper Incontinent Incontinent External Catheter # Voids 1 1 - Labs CBC & Chem 7: 10/17/20 04:15 10/17/20 04:15 Labs: Abnormal Lab Results - Last 24 Hours (Table) 10/16/20 10/16/20 10/16/20 Range/Units 08:25 08:52 12:08 RBC 1.91 L (3.80-5.40) m/uL Hgb 5.9 L* D (11.4-16.0) gm/dL Hct 18.8 L* (34.0-46.0) % RDW 18.7 H (11.5-15.5) % BUN 21 H (7-17) mg/dL Creatinine 1.17 H (0.52-1.04) mg/dL POC Glucose (mg/dL) (75-99) mg/dL Calcium 8.3 L (8.4-10.2) mg/dL Total Bilirubin 0.1 L (0.2-1.3) mg/dL AST (14-36) U/L Total Protein 6.0 L (6.3-8.2) g/dL Albumin 2.8 L (3.5-5.0) g/dL Crossmatch See Detail 10/16/20 10/16/20 10/17/20 Range/Units 12:08 14:00 04:15 RBC 1.82 L 2.64 L (3.80-5.40) m/uL Hgb 5.8 L* 8.1 L D (11.4-16.0) gm/dL Hct 17.8 L* 24.3 L (34.0-46.0) % RDW 18.5 H 18.9 H (11.5-15.5) % BUN (7-17) mg/dL Creatinine (0.52-1.04) mg/dL POC Glucose (mg/dL) 107 H (75-99) mg/dL Calcium (8.4-10.2) mg/dL Total Bilirubin (0.2-1.3) mg/dL AST (14-36) U/L Total Protein (6.3-8.2) g/dL Albumin (3.5-5.0) g/dL Crossmatch 10/17/20 Range/Units 04:15 RBC (3.80-5.40) m/uL Hgb (11.4-16.0) gm/dL Hct (34.0-46.0) % RDW (11.5-15.5) % BUN (7-17) mg/dL Creatinine 1.17 H (0.52-1.04) mg/dL POC Glucose (mg/dL) (75-99) mg/dL Calcium 8.2 L (8.4-10.2) mg/dL Total Bilirubin (0.2-1.3) mg/dL AST 49 H (14-36) U/L Total Protein 5.5 L (6.3-8.2) g/dL Albumin 2.4 L (3.5-5.0) g/dL Crossmatch Microbiology - Last 24 Hours (Table) 10/15/20 18:00 Blood Culture - Preliminary Blood No Growth after 24 hours 10/15/20 17:41 Blood Culture - Preliminary Blood No Growth after 24 hours 10/15/20 14:02 Urine Culture - Preliminary Urine,Catheterized Group D Enterococcus
--- NOTE | 2020-10-17 10:41 | P.PN ---
Subjective Progress Note Date: 10/17/20 Principal diagnosis: Anemia Patient went for CAT scan yesterday evening. Hemodynamically she has remained stable. Hemoglobin improved at 8.1 following 2 units transfusion. No s ignificant ostomy function since yesterday. No further vomiting. Patient denies pain. CAT scan reviewed. There is some free fluid in the abdomen however this does not appear hemorrhagic and no obvious source of bleeding noted. Incidentally patient noted to have significant distention of a loop of small bowel that appears consistent with bowel obstruction at this time. This would certainly explain the patient's recent episodes of vomiting and decreased ostomy output however that is not the reason the patient came into the hospital. There does appear to be some vague inflammatory changes in the pelvis from the previous operative site and recurrent malignancy not excluded. Objective - Vital Signs Vital signs: Vital Signs Temp 98.6 F 10/17/20 08:00 Pulse 90 10/17/20 10:00 Resp 18 10/17/20 10:00 BP 109/80 10/17/20 10:00 Pulse Ox 99 10/17/20 10:00 Intake & Output 10/16/20 10/17/20 10/17/20 18:59 06:59 18:59 Intake Total 925 1945 300 Output Total 200 0 Balance 925 1745 300 Weight 82.5 kg 78 kg Intake: IV 375 1275 300 Magnesium Sulfate-D5w Pmx 100 1 gm In Dextrose/Water 1 100ml.bag @ 100 mls/hr IVPB Q1H DANIEL Rx#: [id number] Piperacillin-Tazobactam 3 100 .375 gm In Sodium Chloride 0.9% 100 ml @ 200 mls/hr IVPB Q8HR DANIEL Rx#:[id number] Sodium Chloride 0.9% 1, 375 1075 300 000 ml @ 75 mls/hr IV . [id number] DANIEL Rx#:[id number] Oral 240 50 Blood Product 310 620 Rc As-1 Unit 0 310 [id number] Rc Pheresis 2 As3 Unit 310 [id number] Output: Urine 200 0 Other: Voiding Method Bedpan Bedpan External Catheter Diaper Incontinent Incontinent External Catheter # Voids 1 1 1 - Exam Abdomen: Soft, mild distention, minimal tenderness, ostomy without function - Labs CBC & Chem 7: 10/17/20 04:15 10/17/20 04:15 Labs: Abnormal Lab Results - Last 24 Hours (Table) 10/16/20 10/16/20 10/16/20 Range/Units 08:25 12:08 12:08 RBC 1.82 L (3.80-5.40) m/uL Hgb 5.8 L* (11.4-16.0) gm/dL Hct 17.8 L* (34.0-46.0) % RDW 18.5 H (11.5-15.5) % BUN 21 H (7-17) mg/dL Creatinine 1.17 H (0.52-1.04) mg/dL POC Glucose (mg/dL) (75-99) mg/dL Calcium 8.3 L (8.4-10.2) mg/dL Total Bilirubin 0.1 L (0.2-1.3) mg/dL AST (14-36) U/L Total Protein 6.0 L (6.3-8.2) g/dL Albumin 2.8 L (3.5-5.0) g/dL Crossmatch See Detail 10/16/20 10/17/20 10/17/20 Range/Units 14:00 04:15 04:15 RBC 2.64 L (3.80-5.40) m/uL Hgb 8.1 L D (11.4-16.0) gm/dL Hct 24.3 L (34.0-46.0) % RDW 18.9 H (11.5-15.5) % BUN (7-17) mg/dL Creatinine 1.17 H (0.52-1.04) mg/dL POC Glucose (mg/dL) 107 H (75-99) mg/dL Calcium 8.2 L (8.4-10.2) mg/dL Total Bilirubin (0.2-1.3) mg/dL AST 49 H (14-36) U/L Total Protein 5.5 L (6.3-8.2) g/dL Albumin 2.4 L (3.5-5.0) g/dL Crossmatch Microbiology - Last 24 Hours (Table) 10/15/20 18:00 Blood Culture - Preliminary Blood No Growth after 24 hours 10/15/20 17:41 Blood Culture - Preliminary Blood No Growth after 24 hours 10/15/20 14:02 Urine Culture - Preliminary Urine,Catheterized Group D Enterococcus Assessment and Plan (1) Anemia Narrative/Plan: CAT scan findings reviewed in detail with the patient. Discussed possible transfer back to [facility] where her specialists are present particularly given the possibility that small bowel obstruction is present and related to patient's known malignancy. Continue to monitor hemoglobin closely. We'll follow until decision regarding transfers made. Current Visit: Yes Status: Acute Code(s): D64.9 - ANEMIA, UNSPECIFIED SNOMED Code(s): 994050938
--- NOTE | 2020-10-17 11:17 | XR ---
EXAMINATION TYPE: XR abdomen 2V DATE OF EXAM: 10/17/2020 CLINICAL DATA: 70-year-old female bowel obstruction, [facility] COMPARISON: 03/29/[address] 10/16/2020 FINDINGS: Partially visualized distal aspect of the CVC near the region of the cavoatrial junction. Some patchy retrocardiac opacity is noted. No evidence for free intraperitoneal air. Some scattered colonic air remains. The stomach remains distended. Dilated mid abdominal small bowel loop currently measuring up to 5.4 cm versus 5.0 cm, previously. IMPRESSION: 1. Central dilated small bowel loop currently measuring 5.4 cm versus 5.0 cm, previously. Suspect con tinued small bowel obstruction. Some scattered colonic air remains. We note a left-sided colostomy an d the patient's CT. 2. No evidence for free air. 3. Patchy retrocardiac atelectasis and/or consolidation.
--- NOTE | 2020-10-17 11:22 | P.PN ---
Subjective Progress Note Date: 10/17/20 Principal diagnosis: Anemia, bowel obstruction 70-year-old female patient was transferred to the intensive care unit due to concerns of GI bleed and profound anemia with a hemoglobin of 5.9. Noted the patient has history of uterine cancer diagnosed recently post total abdominal hysterectomy and bilateral salpingo-oophorectomy and diverticular colostomy and the patient has been receiving systemic chemotherapy on outpatient basis for [facility]. The patient was brought into the hospital originally because of having episodic seizures. The patient was having witnessed seizures as reported by the that were lasting between 5-10 minutes tonic and clonic in nature. She presented to her physician's office where she had another seizure and EMS was called to the scene and the patient was transferred to the hospital. Initially she was admitted to the medical floor. Later on moved to the intensive care unit because of her low hemoglobin. Note that she has colostomy. No bloody output in the colostomy bag. No hematemesis. No abdominal distention. Surgical site is dry clean and intact. It has not completely healed and there is an area where there is small amount of packing in that area which is open measuring 1 cm in size and is not infected or draining at this point in time. She also has history of right lower extremity DVT and the patient has an IVC filter in place and she's been taking Xarelto 20 mg on outpatient basis. Her last systemic chemotherapy was around 3 weeks ago. She does have some chronic anemia. No previous history of seizure activity. No alcohol rhythm. No head trauma. CAT scan of the brain was essentially ne gative. The patient was seen by neurology and the patient was started on Keppra. Currently she is awake and alert and she is following commands and answering questions appropriately. She is afebrile and she is hemodynamically stable. CAT scan of the brain showed age-related atrophy along with chronic small vessel ischemic change. The white cell count was 2.9 probably related to systemic chemotherapy. UA may indicate the possibility of underlying infection. Electrolytes showed a low magnesium with zinc replaced. LFTs are normal. Calcium level is at 8.1 EEG was completed and was abnormal and there was background slowing with mild to moderate encephalopathy. No focal epileptic foci seen. The patient is seen today 10/17/2020 in follow-up in the intensive care unit. She is currently resting fairly comfortably in bed. Awake and alert in no acute distress. She is maintaining good O2 saturations in the upper 90s on room air. She's been afebrile. Hemodynamically stable. Computed tomography scan of the abdomen and pelvis revealed mild abdominal ascites in the upper abdomen. There is bilateral lower lobe pulmonary infiltrates and atelectasis at the bases of the lungs. Dilated small bowel in the upper abdomen consistent with high-grade mechanical small bowel obstruction. Transition point is difficult to identify more likely related to the surgery and the pelvis with surgical clips and dilated loops. Obstruction appears new compared to old exam. There is left- sided hydronephrosis and hydroureter which is new. No ostomy function since yesterday. She is status post 2 units of packed red blood cells. Current hemoglobin 8.1. Blood cultures positive for group D streptococcus. The cultures revealing no growth. White count 5.0. Sodium 138. Potassium 4.5. Creatinine 1.17. She remains on 0.9 normal saline at 75 ML's per hour. Antibiotics in the form of Zosyn. No further seizure activity. She remains on Keppra. Objective - Vital Signs Vital signs: Vital Signs Temp 98.6 F 10/17/20 08:00 Pulse 90 10/17/20 10:00 Resp 18 10/17/20 10:00 BP 109/80 10/17/20 10:00 Pulse Ox 99 10/17/20 10:00 Intake & Output 10/16/20 10/17/20 10/17/20 18:59 06:59 18:59 Intake Total 925 1945 300 Output Total 200 0 Balance 925 1745 300 Weight 82.5 kg 78 kg Intake: IV 375 1275 300 Magnesium Sulfate-D5w Pmx 100 1 gm In Dextrose/Water 1 100ml.bag @ 100 mls/hr IVPB Q1H DANIEL Rx#: [id number] Piperacillin-Tazobactam 3 100 .375 gm In Sodium Chloride 0.9% 100 ml @ 200 mls/hr IVPB Q8HR DANIEL Rx#:[id number] Sodium Chloride 0.9% 1, 375 1075 300 000 ml @ 75 mls/hr IV . [id number] DANIEL Rx#:[id number] Oral 240 50 Blood Product 310 620 Rc As-1 Unit 0 310 [id number] Rc Pheresis 2 As3 Unit 310 [id number] Output: Urine 200 0 Other: Voiding Method Bedpan Bedpan External Catheter Diaper Incontinent Incontinent External Catheter # Voids 1 1 1 - Exam Gen: This is a pleasant 70-year-old female, resting in bed, on room air and appears to be comfortable and in no acute distress. Head exam was generally normal. There was no scleral icterus or corneal arcus. Mucous membranes were moist. HEENT: Head is atraumatic, normocephalic. Pupils equal, round. Sclerae is anict camilla. NECK: Supple. No JVD. No lymphadenopathy. No thyromegaly. Chest: Decreased breath sounds at bases, few rhonchi, no expiratory wheezes, no chest wall tenderness, no intercostal retractions. secured entrance monitor sinus rhythm. Heart: First heart sound is depressed, second heart sounds normal, there is systolic ejection murmur 2/6 located in the left sternal border. ABDOMEN: Soft. Bowel sounds are present. No masses. No tenderness. Small open wound at the previous surgical site. Colostomy in place, no output currently. He no active drainage from the abdominal wound. No direct tenderness. No rebound tenderness. No guarding. Colostomy site is functional and intact. EXTREMITIES: No pedal edema. No calf tenderness. NEUROLOGICAL: Patient is awake, alert and oriented x3. Cranial nerves 2 through 12 are grossly intact. - Labs CBC & Chem 7: 10/17/20 04:15 10/17/20 04:15 Labs: Abnormal Lab Results - Last 24 Hours (Table) 10/16/20 10/16/20 10/16/20 Range/Units 08:25 12:08 12:08 RBC 1.82 L (3.80-5.40) m/uL Hgb 5.8 L* (11.4-16.0) gm/dL Hct 17.8 L* (34.0-46.0) % RDW 18.5 H (11.5-15.5) % BUN 21 H (7-17) mg/dL Creatinine 1.17 H (0.52-1.04) mg/dL POC Glucose (mg/dL) (75-99) mg/dL Calcium 8.3 L (8.4-10.2) mg/dL Total Bilirubin 0.1 L (0.2-1.3) mg/dL AST (14-36) U/L Total Protein 6.0 L (6.3-8.2) g/dL Albumin 2.8 L (3.5-5.0) g/dL Crossmatch See Detail 10/16/20 10/17/20 10/17/20 Range/Units 14:00 04:15 04:15 RBC 2.64 L (3.80-5.40) m/uL Hgb 8.1 L D (11.4-16.0) gm/dL Hct 24.3 L (34.0-46.0) % RDW 18.9 H (11.5-15.5) % BUN (7-17) mg/dL Creatinine 1.17 H (0.52-1.04) mg/dL POC Glucose (mg/dL) 107 H (75-99) mg/dL Calcium 8.2 L (8.4-10.2) mg/dL Total Bilirubin (0.2-1.3) mg/dL AST 49 H (14-36) U/L Total Protein 5.5 L (6.3-8.2) g/dL Albumin 2.4 L (3.5-5.0) g/dL Crossmatch Microbiology - Last 24 Hours (Table) 10/15/20 18:00 Blood Culture - Preliminary Blood No Growth after 24 hours 10/15/20 17:41 Blood Culture - Preliminary Blood No Growth after 24 hours 10/15/20 14:02 Urine Culture - Preliminary Urine,Catheterized Group D Enterococcus Assessment and Plan Assessment: 1 anemia, multifactorial, postchemotherapy along with a component of chronic anemia. No clear indication for an acute GI bleed. The patient isn't an ticoagulated with Xarelto. Xarelto will placed on hold and we'll watch the patient's hemoglobin. The patient will be receiving a total of 2 units of packed RBC. The patient is hemodynamically stable. The reported hemoglobin that was up to 12 from 10/15/2020 probably is a wrong or a representation of a hemoconcentrated blood. The patient does have chronic anemia as reported on previous blood work. Hemoglobin today 8.1 2 new onset seizure, CAT scan of the brain showing no acute abnormalities. No evidence of any HEEL LAYER metastases based on the CAT scan of the brain. Some minor electrode abnormalities at the time of admission. Currently on Keppra and neurology is on consult. 3 bowel obstruction with significant distention of the loop of small bowel with decreased to no ostomy output 4 uterine cancer post-abdominal hysterectomy and bilateral salpingo-oophorectomy and diverticular colostomy receiving systemic chemotherapy 5 history of DVT maternal Xarelto on outpatient basis. The patient has a IVC filter in place. She has history of a right lower extremity DVT 6 hypertension 7 hyperlipidemia 8 suspected UTI 9 hypomagnesemia, corrected Plan The patient was seen and evaluated by Dr. Hines She is currently stable from the critical care standpoint Hemoglobin stable at 8.1 She remains on Zosyn Due to the bowel obstruction she is recommended transfer back to [facility] In the interim, we'll continue to follow and make further recommendations based on her clinical status I, the cosigning physician, performed a history & physical examination of the pa birgit. Lungs sounds with few rhonchi, diminished in the posterior bases Maintaining good O2 saturations in the 90s on room air. I discussed the assessment and plan of care with my nurse practitioner, Pepper Quintanilla. I attest to the above note as dictated by her.
--- NOTE | 2020-10-17 11:29 | P.PN ---
Subjective Progress Note Date: 10/17/20 The patient is seen at bedside. Yesterday the patient hemoglobin dropped to 5.8 and she received the blood transfusion of 2 units and was sent to ICU. Today the patient feels much better and feels more energetic. No further seizure-like episodes. CAT scan of the abdomen was noted to have significant distention of the Loop small bowel that appears consistent with the bowel obstruction. She is having e pisodes of vomiting. General surgery team is on board. Objective - Vital Signs Vital signs: Vital Signs Temp 98.6 F 10/17/20 08:00 Pulse 90 10/17/20 10:00 Resp 18 10/17/20 10:00 BP 109/80 10/17/20 10:00 Pulse Ox 99 10/17/20 10:00 Intake & Output 10/16/20 10/17/20 10/17/20 18:59 06:59 18:59 Intake Total 925 1945 300 Output Total 200 0 Balance 925 1745 300 Weight 82.5 kg 78 kg Intake: IV 375 1275 300 Magnesium Sulfate-D5w Pmx 100 1 gm In Dextrose/Water 1 100ml.bag @ 100 mls/hr IVPB Q1H DANIEL Rx#: [id number] Piperacillin-Tazobactam 3 100 .375 gm In Sodium Chloride 0.9% 100 ml @ 200 mls/hr IVPB Q8HR DANIEL Rx#:[id number] Sodium Chloride 0.9% 1, 375 1075 300 000 ml @ 75 mls/hr IV . [id number] DANIEL Rx#:[id number] Oral 240 50 Blood Product 310 620 Rc As-1 Unit 0 310 [id number] Rc Pheresis 2 As3 Unit 310 [id number] Output: Urine 200 0 Other: Voiding Method Bedpan Bedpan External Catheter Diaper Incontinent Incontinent External Catheter # Voids 1 1 1 - Exam GENERAL: The patient is lying in bed and is not in acute distress. NEUROLOGICAL: Higher mental function: The patient is awake, alert (looks more awake today compared to yesterday) oriented to self, place and time. Patient is following commands. No aphasia and no neglect. Cranial nerves: The pupils are round, equal and reactive to light. Visual villalobos are full to confrontation throughout. Extraocular movement is intact no nystagmus is noted. Facial sensation is normal to touch throughout. The facial strength is normal throughout. Hearing is mildy decreased to hand rub bilaterally. Tongue is midline and moved [id number] without any difficulty. No tongue bite seen. No dysarthria is noted. Shoulder shrug is normal bilaterally. Motor: Gait is deferred. The strength is 5 over 5 throughout uppers. While lowers is lifting above gravity. Normal tone and bulk. Cerebellum: Normal finger to nose bilaterally. Sensation: Sensation is normal to touch throughout. Reflexes (right/left): 1+. Plantars are mute bilaterally. LABS/IMAGING/OTHER TESTS: Ionized calcium is 4.7 which is considered within normal limits. EEG on 10/16/2020 is an abnormal EEG. The background slowing suggestive of mild to moderate encephalopathy. There are no focal slowing, epileptiform discharges or seizure in the EEG. - Labs CBC & Chem 7: 10/17/20 04:15 10/17/20 04:15 Labs: Abnormal Lab Results - Last 24 Hours (Table) 10/16/20 10/16/20 10/16/20 Range/Units 08:25 12:08 12:08 RBC 1.82 L (3.80-5.40) m/uL Hgb 5.8 L* (11.4-16.0) gm/dL Hct 17.8 L* (34.0-46.0) % RDW 18.5 H (11.5-15.5) % BUN 21 H (7-17) mg/dL Creatinine 1.17 H (0.52-1.04) mg/dL POC Glucose (mg/dL) (75-99) mg/dL Calcium 8.3 L (8.4-10.2) mg/dL Total Bilirubin 0.1 L (0.2-1.3) mg/dL AST (14-36) U/L Total Protein 6.0 L (6.3-8.2) g/dL Albumin 2.8 L (3.5-5.0) g/dL Crossmatch See Detail 10/16/20 10/17/20 10/17/20 Range/Units 14:00 04:15 04:15 RBC 2.64 L (3.80-5.40) m/uL Hgb 8.1 L D (11.4-16.0) gm/dL Hct 24.3 L (34.0-46.0) % RDW 18.9 H (11.5-15.5) % BUN (7-17) mg/dL Creatinine 1.17 H (0.52-1.04) mg/dL POC Glucose (mg/dL) 107 H (75-99) mg/dL Calcium 8.2 L (8.4-10.2) mg/dL Total Bilirubin (0.2-1.3) mg/dL AST 49 H (14-36) U/L Total Protein 5.5 L (6.3-8.2) g/dL Albumin 2.4 L (3.5-5.0) g/dL Crossmatch Microbiology - Last 24 Hours (Table) 10/15/20 18:00 Blood Culture - Preliminary Blood No Growth after 24 hours 10/15/20 17:41 Blood Culture - Preliminary Blood No Growth after 24 hours 10/15/20 14:02 Urine Culture - Preliminary Urine,Catheterized Group D Enterococcus Assessment and Plan Assessment: New onset seizure (who had two GTC seizure. One at home and one at her PCP office). Unknown exact cause at this time. Rule out brain metastasis (which can happen but is low percentage can cause this) and electrolyte imbalance provokes seizure. Anemia--received 2 units blood tranfusion Electrolyte imbalance (Magnesium 1.1 and ?hypocalcemia 8.1 but will get ionized calcium) due to vomiting Bowel obstruction Acute Urinary tract infection Acute kidney insufficiency History of uterine cancer status post total abdominal hysterectomy and bilateral salpingo-oophorectomy with colostomy placement on chemotherapy Right DVT on Xarelto Hypertension Hyperlipidemia Plan: Continue Keppra 500 mg every 12 hours. Pending MRI the brain with and without Placed the patient on seizure precautions seizure pads. Every 4 hours neuro checks. I'll defer the electrolyte imbalance correction to the primary team. General surgery team is on board. We'll defer the rest of the medical management the primary team. Patient was notified that the per the [place] DMV she cannot drive for 6 month until seizure free, to avoid the swimming unassisted, [place] or using heavy machinery. I was notified by the patient's nurse, because of bowel obstruction she will be transferred to [facility]. The plan is discussed with the patient's nurse. Jacky Obregon MD Neuro-Hospitalist Time with Patient: Less than 30
[2020-10-17] MEDS: SODIUM CHLORIDE 0.9% 1,000 ML IV SCH ×2 (12:32→21:20)
[2020-10-17] MEDS: ASPIRIN 325 MG TAB PO SCH (20:18)
[2020-10-18] MEDS: PIPERACILLIN-TAZOBACTAM 3.375 GM in SODIUM CHLORIDE 0.9% 100 ML IVPB SCH ×3 (00:56→18:45)
[2020-10-18 04:36] LABS: Anisocytosis Slight; Basophils % (A) 0 %; Eosinophils % (A) 0 %; HCT 24.1 % (34.0-46.0); HGB 7.9 gm/dL (11.4-16.0); Hypochromasia Slight; Lymphocytes # (A) 1.2 k/uL (1.0-4.8); Lymphocytes % (A) 27 %; MCH 30.6 pg (25.0-35.0); MCHC 32.8 g/dL (31.0-37.0); MCV 93.5 fL (80.0-100.0); Macrocytosis Slight; Mean Platelet Volume 7.5; Monocytes # (A) 0.3 k/uL (0-1.0); Monocytes % (A) 6 %; Neutrophils # (A) 2.9 k/uL (1.3-7.7); Neutrophils % (A) 63 %; Platelet Count 342 k/uL (150-450); Poikilocytosis Slight; RBC 2.58 m/uL (3.80-5.40); RDW 18.9 % (11.5-15.5); WBC 4.6 k/uL (3.8-10.6)
[2020-10-18 04:51] LABS: ALT 10 U/L (4-34); AST 22 U/L (14-36); African American GFR (CKD) 64 (>60 ml/min/1.73 sqM); Albumin 2.2 g/dL (3.5-5.0); Alkaline Phosphatase 98 U/L (38-126); Anion Gap 4 mmol/L; Blood Urea Nitrogen 13 mg/dL (7-17); Calcium 8.1 mg/dL (8.4-10.2); Carbon Dioxide 24 mmol/L (22-30); Chloride 111 mmol/L (98-107); Glucose 73 mg/dL (74-99); Magnesium 1.6 mg/dL (1.6-2.3); Non-African American GFR(CKD) 55 (>60 ml/min/1.73 sqM); Potassium 4.1 mmol/L (3.5-5.1); Sodium 139 mmol/L (137-145); Total Bilirubin <0.1 mg/dL (0.2-1.3); Total Protein 5.1 g/dL (6.3-8.2)
[2020-10-18] MEDS ORDERED: Magnesium Replacement Protocol 1 EACH MISC MISCELLANE PRN (06:46)
--- NOTE | 2020-10-18 08:00 | P.PN ---
Subjective Progress Note Date: 10/18/20 70-year-old female patient was transferred to the intensive care unit due to concerns of GI bleed and profound anemia with a hemoglobin of 5.9. Noted the patient has history of uterine cancer diagnosed recently post total abdominal hysterectomy and bilateral salpingo-oophorectomy and diverticular colostomy and the patient has been receiving systemic chemotherapy on outpatient basis for [facility]. The patient was brought into the hospital originally because of having episodic seizures. The patient was having witnessed seizures as reported by the that were lasting between 5-10 minutes tonic and clonic in nature. She presented to her physician's office where she had another seizure and EMS was called to the scene and the patient was transferred to the hospital. Initially she was admitted to the medical floor. Later on moved to the intensive care unit because of her low hemoglobin. Note that she has colostomy. No bloody output in the colostomy bag. No hematemesis. No abdominal distention. Surgical site is dry clean and intact. It has not completely healed and there is an area where there is small amount of packing in that area which is open measuring 1 cm in size and is not infected or draining at this point in time. She also has history of right lower extremity DVT and the patient has an IVC filter in place and she's been taking Xarelto 20 mg on ou tpatient basis. Her last systemic chemotherapy was around 3 weeks ago. She does have some chronic anemia. No previous history of seizure activity. No alcohol rhythm. No head trauma. CAT scan of the brain was essentially negative. The patient was seen by neurology and the patient was started on Keppra. Currently she is awake and alert and she is following commands and answering questions appropriately. She is afebrile and she is hemodynamically stable. CAT scan of the brain showed age-related atrophy along with chronic small vessel ischemic change. The white cell count was 2.9 probably related to systemic chemotherapy. UA may indicate the possibility of underlying infection. Electrolytes showed a low magnesium with zinc replaced. LFTs are normal. Calcium level is at 8.1 EEG was completed and was abnormal and there was background slowing with mild to moderate encephalopathy. No focal epileptic foci seen. The patient is seen today 10/17/2020 in follow-up in the intensive care unit. She is currently resting fairly comfortably in bed. Awake and alert in no acute distress. She is maintaining good O2 saturations in the upper 90s on room air. She's been afebrile. Hemodynamically stable. Computed tomography scan of the abdomen and pelvis revealed mild abdominal ascites in the upper abdomen. There is bilateral lower lobe pulmonary infiltrates and atelectasis at the bases of the lungs. Dilated small bowel in the upper abdomen consistent with high-grade mechanical small bowel obstruction. Transition point is difficult to identify more likely related to the surgery and the pelvis with surgical clips and dilated loops. Obstruction appears new compared to old exam. There is left- sided hydronephrosis and hydroureter which is new. No ostomy function since . She is status post 2 units of packed red blood cells. Current hemoglobin 8.1. Blood cultures positive for group D streptococcus. The cultures revealing no growth. White count 5.0. Sodium 138. Potassium 4.5. Creatinine 1.17. She remains on 0.9 normal saline at 75 ML's per hour. Ant ibiotics in the form of Zosyn. No further seizure activity. She remains on Keppra. On 10/18/2020 , the patient is comfortable, resting in bed, extremely hungry and she wants fluid as the patient is that she is starving. There is still activity in the colostomy bag and there is some liquid material collecting that was nonbloody on that is no melanotic. It emesis. No abdominal pain. No naus ea. No vomiting. An abdominal x-ray that was done yesterday on 10/17/2020 shows some dilated small bowel loops and this is still suspecting small bowel obstruction. Nevertheless, clinically, the patient has no evidence of any abdominal distention and she has adequate bowel sounds and adequate bowel activity in the colostomy bag. There is some scattered colonic air on the abdominal film. There is also left-sided colostomy. No free air. Atelectatic changes in lung bases bilaterally. No chest pain. Hemoglobin stable at 7.9. Renal function stable with a creatinine of 1.04.. Is at 15. Platelet is at 340. The white cell count is at 4.2. She is currently on IV fluids with normal saline at the rate of 75 ML. Neurologically awake and alert. No focal neurological deficit. No seizure activity overnight. The patient remains on Keppra. Objective - Vital Signs Vital signs: Vital Signs Temp 98.5 F 10/18/20 04:00 Pulse 67 10/18/20 06:00 Resp 14 10/18/20 06:00 BP 104/69 10/18/20 06:00 Pulse Ox 99 10/18/20 06:00 Intake & Output 10/17/20 10/18/20 10/18/20 18:59 06:59 18:59 Intake Total 925 1000 Output Total 200 500 Balance 725 500 Intake: IV 925 1000 Piperacillin-Tazobactam 3 100 100 .375 gm In Sodium Chloride 0.9% 100 ml @ 200 mls/hr IVPB Q8HR DANIEL Rx#:[id number] Sodium Chloride 0.9% 1, 825 900 000 ml @ 75 mls/hr IV . [id number] DANIEL Rx#:[id number] Output: Urine 200 500 Other: Voiding Method External Catheter External Catheter # Voids 1 2 - Exam Gen: This is a pleasant 70-year-old female, resting in bed, on room air and appears to be comfortable and in no acute distress. Head exam was generally normal. There was no scleral icterus or corneal arcus. Mucous membranes were moist. HEENT: Head is atraumatic, normocephalic. Pupils equal, round. Sclerae is anicteric. NECK: Supple. No JVD. No lymphadenopathy. No thyromegaly. Chest: Decreased breath sounds at bases, few rhonchi, no expiratory wheezes, no chest wall tenderness, no intercostal retractions. folded cloth taper sinus rhythm. Heart: First heart sound is depressed, second heart sounds normal, there is systolic ejection murmur 2/6 located in the left sternal border. ABDOMEN: Soft. Bowel sounds are present. No masses. No tenderness. Small open wound at the previous surgical site. Colostomy in place, adequate output currently and the colostomy. He no active drainage from the abdominal wound. No direct tenderness. No rebound tenderness. No guarding. Colostomy site is functional and intact. EXTREMITIES: No pedal edema. No calf tenderness. NEUROLOGICAL: Patient is awake, alert and oriented x3. Cranial nerves 2 through 12 are grossly intact. - Labs CBC & Chem 7: 10/18/20 03:54 10/18/20 03:54 Labs: Abnormal Lab Results - Last 24 Hours (Table) 07/10/21 07/10/21 Range/Units 03:54 03:54 RBC 2.58 L (3.80-5.40) m/uL Hgb 7.9 L (11.4-16.0) gm/dL Hct 24.1 L (34.0-46.0) % RDW 18.9 H (11.5-15.5) % Chloride 111 H (98-107) mmol/L Glucose 73 L (74-99) mg/dL Calcium 8.1 L (8.4-10.2) mg/dL Total Bilirubin <0.1 L (0.2-1.3) mg/dL Total Protein 5.1 L (6.3-8.2) g/dL Albumin 2.2 L (3.5-5.0) g/dL Microbiology - Last 24 Hours (Table) 10/15/20 14:02 Urine Culture - Final Urine,Catheterized Enterococcus faecalis 10/15/20 18:00 Blood Culture - Preliminary Blood No Growth after 48 hours 10/15/20 17:41 Blood Culture - Preliminary Blood No Growth after 48 hours Assessment and Plan Plan: 1 anemia, multifactorial, postchemotherapy along with a component of chronic anemia. No clear indication for an acute GI bleed. The patient will be recei ving a total of 2 units of packed RBC. The patient is hemodynamically stable. The reported hemoglobin that was up to 12 from 10/15/2020 probably is a wrong or a representation of a hemoconcentrated blood. The patient does have chronic anemia as reported on previous blood work. His hemoglobin is stable at 7.9. The patient's has not shown any signs of bleeding. She is still currently off Xarelto 2 new onset seizure, CAT scan of the brain showing no acute abnormalities. No evidence of any MICROFILM OPERATOR metastases based on the CAT scan of the brain. Some minor electrode abnormalities at the time of admission. Currently on Keppra and neurology is on consult. Has not seized over the past 24 hours. The patient is still on Keppra. MRI of the brain is in progress. 3 uterine cancer post-abdominal hysterectomy and bilateral salpingo-oophorectomy and diverticular colostomy receiving systemic chemotherapy 4 history of DVT maternal Xarelto on outpatient basis. The patient has a IVC filter in place. She has history of a right lower extremity DVT 5 hypertension 6 hyperlipidemia 7 suspected UTI 8 hypomagnesemia, corrected 9 Incomplete healing of an abdominal wound amount on signs of an acute infection 10 ration of 1 suspected small bowel obstruction. Nevertheless, no clear signs of obstruction clinically. This is essentially CAT scan findings. The patient has a functional colostomy with some adequate fluid collection and she has bowel sounds without any abdominal distention and nausea vomiting or emesis. She feels quite hungry 11 Enterococcus faecalis in the urine Plan Keep Xarelto on hold allow soft diet today and assess the patient's progression and hopefully we'll see some adequate bowel movement activity Keppra for seizure activity. MRI of the brain to rule out any MICROFILM OPERATOR metastases Seizure precautions Continue IV Zosyn monitor hemoglobin Keep the patient ICU for further monitoring IV Zosyn as an empiric antibiotic coverage We'll continue to follow
--- NOTE | 2020-10-18 08:53 | P.PN ---
Subjective Progress Note Date: 10/18/20 Principal diagnosis: Anemia Patient states she is starting. Denies abdominal pain. She does have a small amount of liquid stool in her ostomy. Denies nausea or vomiting. Hemoglobin relatively stable. No evidence of blood in her stool. Patient has been hemodynamically stable. Objective - Vital Signs Vital signs: Vital Signs Temp 98.4 F 10/18/20 08:00 Pulse 67 10/18/20 08:00 Resp 16 10/18/20 08:00 BP 120/84 10/18/20 08:00 Pulse Ox 98 10/18/20 08:00 Intake & Output 10/17/20 10/18/20 10/18/20 18:59 06:59 18:59 Intake Total 925 1000 75 Output Total 200 500 Balance 725 500 75 Intake: IV 925 1000 75 Piperacillin-Tazobactam 3 100 100 .375 gm In Sodium Chloride 0.9% 100 ml @ 200 mls/hr IVPB Q8HR [facility] Rx#:[id number] Sodium Chloride 0.9% 1, 825 900 75 000 ml @ 75 mls/hr IV . [id number] [facility] Rx#:[id number] Output: Urine 200 500 Other: Voiding Method External Catheter External Catheter External Catheter # Voids 1 2 - Exam Abdomen: Soft, mild distention, no appreciable tenderness, some stool in ostomy appliance - Labs CBC & Chem 7: 10/18/20 03:54 10/18/20 03:54 Labs: Abnormal Lab Results - Last 24 Hours (Table) 10/18/20 10/18/20 Range/Units 03:54 03:54 RBC 2.58 L (3.80-5.40) m/uL Hgb 7.9 L (11.4-16.0) gm/dL Hct 24.1 L (34.0-46.0) % RDW 18.9 H (11.5-15.5) % Chloride 111 H (98-107) mmol/L Glucose 73 L (74-99) mg/dL Calcium 8.1 L (8.4-10.2) mg/dL Total Bilirubin <0.1 L (0.2-1.3) mg/dL Total Protein 5.1 L (6.3-8.2) g/dL Albumin 2.2 L (3.5-5.0) g/dL Microbiology - Last 24 Hours (Table) 10/15/20 14:02 Urine Culture - Final Urine,Catheterized Enterococcus faecalis 10/15/20 18:00 Blood Culture - Preliminary Blood No Growth after 48 hours 10/15/20 17:41 Blood Culture - Preliminary Blood No Growth after 48 hours Assessment and Plan (1) Anemia Narrative/Plan: Patient insisting she eats. Abdominal CAT scan and x-rays discordant with the patient's symptoms and exam currently. Agree with trial of liquids. Begin full liquids. Repeat abdominal x-rays tomorrow. Current Visit: Yes Status: Acute Code(s): D64.9 - ANEMIA, UNSPECIFIED SNOMED Code(s): 998190242
[2020-10-18] MEDS: MAGNESIUM HYDROXIDE 2,400 MG/10 ML CUP PO SCH (09:00)
[2020-10-18] MEDS: SENNOSIDES 8.6 MG TAB PO SCH (09:00)
[2020-10-18] MEDS: polyethylene glycoL 3350 17 GM POWD.PACK PO SCH (09:00)
[2020-10-18] MEDS: MAGNESIUM SULFATE-D5W PMX 1 GM in DEXTROSE/WATER 1 100ML.BAG IVPB SCH ×2 (09:10→11:51)
[2020-10-18] MEDS: levETIRAcetam 500 MG TAB PO SCH ×2 (09:11→21:14)
[2020-10-18] MEDS: METOPROLOL TARTRATE 50 MG TAB PO SCH (09:11)
[2020-10-18] MEDS: ATORVASTATIN 40 MG TAB PO SCH (09:11)
[2020-10-18] MEDS: FERROUS SULFATE 325 MG TAB PO SCH (09:11)
[2020-10-18] MEDS: POTASSIUM CHLORIDE ER 20 MEQ TAB.ER PO SCH ×2 (09:11→21:14)
--- NOTE | 2020-10-18 11:59 | P.PN ---
Subjective Progress Note Date: 10/18/20 Patient seen at bedside and she feels that she's doing well today. She denies of any further seizure activity. Objective - Vital Signs Vital signs: Vital Signs Temp 98.4 F 10/18/20 08:00 Pulse 70 10/18/20 10:00 Resp 19 10/18/20 10:00 BP 103/74 10/18/20 10:00 Pulse Ox 95 10/18/20 10:00 Intake & Output 10/17/20 10/18/20 10/18/20 18:59 06:59 18:59 Intake Total 925 1000 550 Output Total 200 500 200 Balance 725 500 350 Intake: IV 925 1000 350 Piperacillin-Tazobactam 3 100 100 50 .375 gm In Sodium Chloride 0.9% 100 ml @ 200 mls/hr IVPB Q8HR [facility] Rx#:[id number] Sodium Chloride 0.9% 1, 825 900 300 000 ml @ 75 mls/hr IV . [id number] [facility] Rx#:[id number] Oral 200 Output: Urine 200 500 200 Other: Voiding Method External Catheter External Catheter External Catheter # Voids 1 2 - Exam GENERAL: The patient is lying in bed and is not in acute distress. NEUROLOGICAL: Higher mental function: The patient is awake, alert (looks more awake today compared to yesterday) oriented to self, place and time. Patient is following commands. No aphasia and no neglect. Cranial nerves: The pupils are round, equal and reactive to light. Visual villalobos are full to confrontation throughout. Extraocular movement is intact no nystagmus is noted. Facial sensation is normal to touch throughout. The facial strength is normal throughout. Hearing is mildy decreased to hand rub bilat erally. Tongue is midline and moved [id number] without any difficulty. No tongue bite seen. No dysarthria is noted. Shoulder shrug is normal bilaterally. Motor: Gait is deferred. The strength is 5 over 5 throughout uppers. While lowers is lifting above gravity symmetrically. Normal tone and bulk. Cerebellum: Normal finger to nose bilaterally. Sensation: Sensation is normal to touch throughout. Reflexes (right/left): 1+. Plantars are mute bilaterally. LABS/IMAGING/OTHER TESTS: Initial magnesium is 1.1 which is very low and the normal is like between 1.62.3 but next day at 1.6 which is considered within low normal the day after was 2.0 and today at 1.6. Ionized calcium is 4.7 which is considered within normal limits. EEG on 10/16/2020 is an abnormal EEG. The background slowing suggestive of mild to moderate encephalopathy. There are no focal slowing, epileptiform discharges or seizure in the EEG. - Labs CBC & Chem 7: 10/18/20 03:54 10/18/20 03:54 Labs: Abnormal Lab Results - Last 24 Hours (Table) 10/18/20 10/18/20 Range/Units 03:54 03:54 RBC 2.58 L (3.80-5.40) m/uL Hgb 7.9 L (11.4-16.0) gm/dL Hct 24.1 L (34.0-46.0) % RDW 18.9 H (11.5-15.5) % Chloride 111 H (98-107) mmol/L Glucose 73 L (74-99) mg/dL Calcium 8.1 L (8.4-10.2) mg/dL Total Bilirubin <0.1 L (0.2-1.3) mg/dL Total Protein 5.1 L (6.3-8.2) g/dL Albumin 2.2 L (3.5-5.0) g/dL Microbiology - Last 24 Hours (Table) 10/15/20 14:02 Urine Culture - Final Urine,Catheterized Enterococcus faecalis 10/15/20 18:00 Blood Culture - Preliminary Blood No Growth after 48 hours 10/15/20 17:41 Blood Culture - Preliminary Blood No Growth after 48 hours Assessment and Plan Assessment: New onset seizure (who had two GTC seizure. One at home and one at her PCP office). Unknown exact cause at this time. Rule out brain metastasis (which can happen but is low percentage can cause this) and electrolyte imbalance provokes seizure. Anemia--received 2 units blood tranfusion Electrolyte imbalance (Magnesium 1.1 and ?hypocalcemia 8.1 but will get ionized calcium) due to vomiting Bowel obstruction Acute Urinary tract infection Acute kidney insufficiency History of uterine cancer status post total abdominal hysterectomy and bilateral salpingo-oophorectomy with colostomy placement on chemotherapy Right DVT on Xarelto Hypertension Hyperlipidemia Plan: Continue Keppra 500 mg every 12 hours. Pending MRI the brain with and without On seizure precautions seizure pads. Every 4 hours neuro checks. General surgery team is on board. We'll defer the rest of the medical management the primary team. Patient was notified that the per the [place] DMV she cannot drive for 6 month until seizure free, to avoid the swimming unassisted, [place] or using heavy machinery. I was notified by the patient's nurse, because of bowel obstruction she will be transferred to [facility] and pending bed. The plan is discussed with the patient's nurse. There is no further neurological work-up. Please notify us if any additional neurological concerns. Jacky Obregon MD Neuro-Hospitalist Time with Patient: Less than 30
--- NOTE | 2020-10-18 13:13 | P.PN ---
Subjective I will I will live multiplePatient was 70-year-old female with history of uterine cancer presently undergoing treatments for right uterine cancer and the a history of bowel resection secondary to uterine cancer metastasis has a colostomy came in after the diagnosis of for new onset of seizures which happened when she was at her PCPs office. Patient is presently on No More Active Seizure Episodes at This Time. Patient Was Evaluated by Neurology Is Recommending an MRI Unfortunately Unable to Get an MRI As family is still in the process of finding out about the MediPort. Patient although clinically doesn't have any signs or symptoms of bowel obstruction CT did show bilateral obstruction because of which transferred to [facility] was initiated about couple days ago, patient ended up staying in the hospital because of nonavailability of beds. Patient is passing gas abdomen is soft clinically patient doesn't appear to have bowel obstruction because of which patient was started on diet by general surgery here today. Patient clinically looks well. Constitutional: Denied any fatigue denied any fever. Cardio vascular: denied any chest pain, palpitations Gastrointestinal denied any nausea vomiting Pulmonary: Denied any shortness of breath cough Neurologic denied any new focal deficits All inpatient medications were reviewed and appropriate changes in these medications as dictated in the interval history and assessment and plan. PHYSICAL EXAMINATION: GENERAL: The patient is alert and oriented x3, not in any acute distress. Well developed, well nourished. HEENT: Pupils are round and equally reacting to light. EOMI. No scleral icterus. No conjunctival pallor. Normocephalic, atraumatic. No pharyngeal erythema. No thyromegaly. CARDIOVASCULAR: S1 and S2 present. No murmurs, rubs, or gallops. PULMONARY: Chest is clear to auscultation, no wheezing or crackles. ABDOMEN: Soft, nontender, nondistended, normoactive bowel sounds. No palpable organomegaly. She has a colostomy MUSCULOSKELETAL: No joint swelling or deformity. EXTREMITIES: No cyanosis, clubbing, or pedal edema. NEUROLOGICAL: Gross neurological examination did not reveal any focal deficits. SKIN: No rashes. Assessment and plan -New-onset seizures: Need to rule out metastatic disease pending MRI due to above-mentioned reasons in waiting to find out more information regarding the MediPort before she can get an MRI is presently on Keppra no more active seizures -Bowel obstruction on the computed tomography scan clinically patient is passing gas does have bowel sounds patient was started on diet Uterine cancer with metastatic disease patient follows up with [facility] patient had abdominal hysterectomy bilateral salpingo-fracture me and a diabetic colostomy patient is receiving systemic chemotherapy -Hypertension -Hyperlipidemia DVT prophylaxis: Objective - Vital Signs Vital signs: Vital Signs Temp 98.4 F 10/18/20 08:00 Pulse 76 10/18/20 11:00 Resp 19 10/18/20 11:00 BP 118/81 10/18/20 11:00 Pulse Ox 97 10/18/20 11:00 Intake & Output 10/17/20 10/18/20 10/18/20 18:59 06:59 18:59 Intake Total 925 1000 650 Output Total 200 500 200 Balance 725 500 450 Intake: IV 925 1000 450 Piperacillin-Tazobactam 3 100 100 75 .375 gm In Sodium Chloride 0.9% 100 ml @ 200 mls/hr IVPB Q8HR [facility] Rx#:[id number] Sodium Chloride 0.9% 1, 825 900 375 000 ml @ 75 mls/hr IV . [id number] [facility] Rx#:[id number] Oral 200 Output: Urine 200 500 200 Other: Voiding Method External Catheter External Catheter External Catheter # Voids 1 2 - Labs CBC & Chem 7: 10/18/20 03:54 10/18/20 03:54 Labs: Abnormal Lab Results - Last 24 Hours (Table) 10/18/20 10/18/20 Range/Units 03:54 03:54 RBC 2.58 L (3.80-5.40) m/uL Hgb 7.9 L (11.4-16.0) gm/dL Hct 24.1 L (34.0-46.0) % RDW 18.9 H (11.5-15.5) % Chloride 111 H (98-107) mmol/L Glucose 73 L (74-99) mg/dL Calcium 8.1 L (8.4-10.2) mg/dL Total Bilirubin <0.1 L (0.2-1.3) mg/dL Total Protein 5.1 L (6.3-8.2) g/dL Albumin 2.2 L (3.5-5.0) g/dL Microbiology - Last 24 Hours (Table) 10/15/20 14:02 Urine Culture - Final Urine,Catheterized Enterococcus faecalis 10/15/20 18:00 Blood Culture - Preliminary Blood No Growth after 48 hours 10/15/20 17:41 Blood Culture - Preliminary Blood No Growth after 48 hours
[2020-10-18] MEDS: SODIUM CHLORIDE 0.9% 1,000 ML IV SCH (18:45)
[2020-10-18] MEDS: ASPIRIN 325 MG TAB PO SCH (21:14)
[2020-10-19] MEDS: PIPERACILLIN-TAZOBACTAM 3.375 GM in SODIUM CHLORIDE 0.9% 100 ML IVPB SCH ×4 (00:03→23:39)
[2020-10-19 03:36] LABS: Anisocytosis Slight; Basophils % (A) 0 %; Eosinophils % (A) 1 %; HCT 25.1 % (34.0-46.0); Hypochromasia Slight; Lymphocytes # (A) 1.6 k/uL (1.0-4.8); Lymphocytes % (A) 32 %; MCH 30.3 pg (25.0-35.0); MCHC 31.9 g/dL (31.0-37.0); MCV 94.9 fL (80.0-100.0); Macrocytosis Slight; Mean Platelet Volume 7.3; Monocytes # (A) 0.4 k/uL (0-1.0); Monocytes % (A) 8 %; Neutrophils # (A) 2.8 k/uL (1.3-7.7); Neutrophils % (A) 56 %; Platelet Count 435 k/uL (150-450); Poikilocytosis Slight; RBC 2.65 m/uL (3.80-5.40); RDW 18.3 % (11.5-15.5)
[2020-10-19 03:39] LABS: Albumin 2.2 g/dL (3.5-5.0); Calcium 8.1 mg/dL (8.4-10.2); Magnesium 1.7 mg/dL (1.6-2.3); Potassium 4.4 mmol/L (3.5-5.1); Total Bilirubin 0.1 mg/dL (0.2-1.3); Total Protein 5.1 g/dL (6.3-8.2)
[2020-10-19] MEDS: SODIUM CHLORIDE 0.9% 1,000 ML IV SCH ×3 (03:46→23:39)
[2020-10-19] MEDS: MAGNESIUM SULFATE-D5W PMX 1 GM in DEXTROSE/WATER 1 100ML.BAG IVPB SCH ×2 (04:37→05:35)
--- NOTE | 2020-10-19 07:28 | XR ---
2 view abdomen HISTORY: Follow up for bowel distention 2 views the abdomen on 3 images correlated to prior abdomen 10/17/2020 There are gas distended loops of small bowel present. No evident pneumoperitoneum. Lung bases are rem arkable for patchy basilar retrocardiac density. There are overlying leads. Large iliac stent is note d on the left. Patient is rotated. Surgical clips present in the pelvis. Possible vascular calcificat ions also noted. IMPRESSION: Correlate for bowel obstruction. Possible lower lobe atelectasis, difficult to exclude sm all effusion.
--- NOTE | 2020-10-19 07:51 | P.PN ---
Subjective Progress Note Date: 10/19/20 Principal diagnosis: Anemia Patient remains in the ICU. No vomiting. She does feel bloated today. Mild discomfort. Today's x-rays show persistent small bowel dilation. Amount of ostomy output is decreased. 50 mL this morning. Objective - Vital Signs Vital signs: Vital Signs Temp 97.8 F 10/19/20 04:00 Pulse 62 10/19/20 04:00 Resp 12 10/19/20 04:00 BP 99/65 10/19/20 04:00 Pulse Ox 96 10/19/20 04:00 Intake & Output 10/18/20 10/19/20 10/19/20 18:59 06:59 18:59 Intake Total 1325 75 Output Total 500 Balance 825 75 Intake: IV 925 75 Piperacillin-Tazobactam 3 100 .375 gm In Sodium Chloride 0.9% 100 ml @ 200 mls/hr IVPB Q8HR [facility] Rx#:[id number] Sodium Chloride 0.9% 1, 825 75 000 ml @ 75 mls/hr IV . [id number] [facility] Rx#:[id number] Oral 400 Output: Urine 400 Stool 100 Other: Voiding Method External Catheter External Catheter # Voids 1 2 - Exam Abdomen: Soft, mild distention, minimal tenderness - Labs CBC & Chem 7: 10/19/20 02:54 10/19/20 02:54 Labs: Abnormal Lab Results - Last 24 Hours (Table) 10/19/20 10/19/20 Range/Units 02:54 02:54 RBC 2.65 L (3.80-5.40) m/uL Hgb 8.0 L (11.4-16.0) gm/dL Hct 25.1 L (34.0-46.0) % RDW 18.3 H (11.5-15.5) % Chloride 109 H (98-107) mmol/L Creatinine 1.10 H (0.52-1.04) mg/dL Calcium 8.1 L (8.4-10.2) mg/dL Total Bilirubin 0.1 L (0.2-1.3) mg/dL Total Protein 5.1 L (6.3-8.2) g/dL Albumin 2.2 L (3.5-5.0) g/dL Microbiology - Last 24 Hours (Table) 10/15/20 18:00 Blood Culture - Preliminary Blood No Growth after 72 hours 10/15/20 17:41 Blood Culture - Preliminary Blood No Growth after 72 hours Assessment and Plan (1) Anemia Narrative/Plan: 70-year-old female with partial small bowel obstruction suspected by x-rays and CAT scan. Decrease diet to clear liquids. Increase activity if able. Will follow. Current Visit: Yes Status: Acute Code(s): D64.9 - ANEMIA, UNSPECIFIED SNOMED Code(s): 537416186
--- NOTE | 2020-10-19 08:44 | P.PN ---
Subjective Progress Note Date: 10/19/20 70-year-old female patient was transferred to the intensive care unit due to concerns of GI bleed and profound anemia with a hemoglobin of 5.9. Noted the patient has history of uterine cancer diagnosed recently post total abdominal hysterectomy and bilateral salpingo-oophorectomy and diverticular colostomy and the patient has been receiving systemic chemotherapy on outpatient basis for [facility]. The patient was brought into the hospital originally because of having episodic seizures. The patient was having witnessed seizures as reported by the that were lasting between 5-10 minutes tonic and clonic in nature. She presented to her physician's office where she had another seizure and EMS was called to the scene and the patient was transferred to the hospital. Initially she was admitted to the medical floor. Later on moved to the intensive care unit because of her low hemoglobin. Note that she has colostomy. No bloody output in the colostomy bag. No hematemesis. No abdominal distention. Surgical site is dry clean and intact. It has not completely healed and there is an area where there is small amount of packing in that area which is open measuring 1 cm in size and is not infected or draining at this point in time. She also has history of right lower extremity DVT and the patient has an IVC filter in place and she's been taking Xarelto 20 mg on ou tpatient basis. Her last systemic chemotherapy was around 3 weeks ago. She does have some chronic anemia. No previous history of seizure activity. No alcohol rhythm. No head trauma. CAT scan of the brain was essentially negative. The patient was seen by neurology and the patient was started on Keppra. Currently she is awake and alert and she is following commands and answering questions appropriately. She is afebrile and she is hemodynamically stable. CAT scan of the brain showed age-related atrophy along with chronic small vessel ischemic change. The white cell count was 2.9 probably related to systemic chemotherapy. UA may indicate the possibility of underlying infection. Electrolytes showed a low magnesium with zinc replaced. LFTs are normal. Calcium level is at 8.1 EEG was completed and was abnormal and there was background slowing with mild to moderate encephalopathy. No focal epileptic foci seen. The patient is seen today 10/17/2020 in follow-up in the intensive care unit. She is currently resting fairly comfortably in bed. Awake and alert in no acute distress. She is maintaining good O2 saturations in the upper 90s on room air. She's been afebrile. Hemodynamically stable. Computed tomography scan of the abdomen and pelvis revealed mild abdominal ascites in the upper abdomen. There is bilateral lower lobe pulmonary infiltrates and atelectasis at the bases of the lungs. Dilated small bowel in the upper abdomen consistent with high-grade mechanical small bowel obstruction. Transition point is difficult to identify more likely related to the surgery and the pelvis with surgical clips and dilated loops. Obstruction appears new compared to old exam. There is left- sided hydronephrosis and hydroureter which is new. No ostomy function since . She is status post 2 units of packed red blood cells. Current hemoglobin 8.1. Blood cultures positive for group D streptococcus. The cultures revealing no growth. White count 5.0. Sodium 138. Potassium 4.5. Creatinine 1.17. She remains on 0.9 normal saline at 75 ML's per hour. Ant ibiotics in the form of Zosyn. No further seizure activity. She remains on Keppra. On 10/18/2020 , the patient is comfortable, resting in bed, extremely hungry and she wants fluid as the patient is that she is starving. There is still activity in the colostomy bag and there is some liquid material collecting that was nonbloody on that is no melanotic. It emesis. No abdominal pain. No naus ea. No vomiting. An abdominal x-ray that was done yesterday on 10/17/2020 shows some dilated small bowel loops and this is still suspecting small bowel obstruction. Nevertheless, clinically, the patient has no evidence of any abdominal distention and she has adequate bowel sounds and adequate bowel activity in the colostomy bag. There is some scattered colonic air on the abdominal film. There is also left-sided colostomy. No free air. Atelectatic changes in lung bases bilaterally. No chest pain. Hemoglobin stable at 7.9. Renal function stable with a creatinine of 1.04.. Is at 15. Platelet is at 340. The white cell count is at 4.2. She is currently on IV fluids with normal saline at the rate of 75 ML. Neurologically awake and alert. No focal neurological deficit. No seizure activity overnight. The patient remains on Keppra. On today's evaluation of 10/19/2020, the patient is sedated intensive care unit. She is however downgraded. We allowed her some soft diet yesterday. On today's evaluation she feels slightly mobile clot load tubes. Mild abdominal discomfort. X-rays of the abdomen shows small bowel dilatation. Ostomy output has decreased and it's in order of 50 mL today. As such, there may be some partial mechanical obstruction. Surgery saw the patient and allow the patient to take only clear liquids. The plan is ultimately to take this patient back to [facility] regarding her complicated history. Her hemoglobin has remained stable at 8.0. Renal function is stable. Electrodes are all stable. She is receiving Keppra. She hasn't had any further bouts of seizure. She is on normal saline at the rate of 75 an hour. Objective - Vital Signs Vital signs: Vital Signs Temp 97.8 F 10/19/20 04:00 Pulse 62 10/19/20 04:00 Resp 12 10/19/20 04:00 BP 99/65 10/19/20 04:00 Pulse Ox 96 10/19/20 04:00 Intake & Output 10/18/20 10/19/20 10/19/20 18:59 06:59 18:59 Intake Total 1325 75 Output Total 500 Balance 825 75 Intake: IV 925 75 Piperacillin-Tazobactam 3 100 .375 gm In Sodium Chloride 0.9% 100 ml @ 200 mls/hr IVPB Q8HR [facility] Rx#:[id number] Sodium Chloride 0.9% 1, 825 75 000 ml @ 75 mls/hr IV . [id number] [facility] Rx#:[id number] Oral 400 Output: Urine 400 Stool 100 Other: Voiding Method External Catheter External Catheter # Voids 1 2 - Exam Gen: This is a pleasant 70-year-old female, resting in bed, on room air and appears to be comfortable and in no acute distress. Head exam was generally normal. There was no scleral icterus or corneal arcus. Mucous membranes were moist. HEENT: Head is atraumatic, normocephalic. Pupils equal, round. Sclerae is anicteric. NECK: Supple. No JVD. No lymphadenopathy. No thyromegaly. Chest: Decreased breath sounds at bases, few rhonchi, no expiratory wheezes, no chest wall tenderness, no intercostal retractions. teletypesetter monitor sinus rhythm. Heart: First heart sound is depressed, second heart sounds normal, there is systolic ejection murmur 2/6 located in the left sternal border. ABDOMEN: Soft. Bowel sounds are present. No masses. No tenderness. Small open wound at the previous surgical site. Colostomy in place, adequate output currently and the colostomy. He no active drainage from the abdominal wound. No direct tenderness. No rebound tenderness. No guarding. Colostomy site is functional and intact. EXTREMITIES: No pedal edema. No calf tenderness. NEUROLOGICAL: Patient is awake, alert and oriented x3. Cranial nerves 2 through 12 are grossly intact. - Labs CBC & Chem 7: 10/19/20 02:54 10/19/20 02:54 Labs: Abnormal Lab Results - Last 24 Hours (Table) 10/19/20 10/19/20 Range/Units 02:54 02:54 RBC 2.65 L (3.80-5.40) m/uL Hgb 8.0 L (11.4-16.0) gm/dL Hct 25.1 L (34.0-46.0) % RDW 18.3 H (11.5-15.5) % Chloride 109 H (98-107) mmol/L Creatinine 1.10 H (0.52-1.04) mg/dL Calcium 8.1 L (8.4-10.2) mg/dL Total Bilirubin 0.1 L (0.2-1.3) mg/dL Total Protein 5.1 L (6.3-8.2) g/dL Albumin 2.2 L (3.5-5.0) g/dL Microbiology - Last 24 Hours (Table) 10/15/20 18:00 Blood Culture - Preliminary Blood No Growth after 72 hours 10/15/20 17:41 Blood Culture - Preliminary Blood No Growth after 72 hours Assessment and Plan Plan: 1 anemia, multifactorial, postchemotherapy along with a component of chronic anemia. No clear indication for an acute GI bleed. She is off Xarelto. The patient is having a stable hemoglobin. 2 new onset seizure, CAT scan of the brain showing no acute abnormalities. No evidence of any FRONT OFFICE COORDINATOR metastases based on the CAT scan of the brain. Some minor electrode abnormalities at the time of admission. Currently on Keppra and neurology is on consult. Has not seized over the past 24 hours. The patient is still on Keppra. MRI of the brain is currently on hold pending further input regarding the type of ports that she has whether this is compatible with our MRI magnets. 3 uterine cancer post-abdominal hysterectomy and bilateral salpingo-oophorectomy and diverticular colostomy receiving systemic chemotherapy 4 history of DVT maternal Xarelto on outpatient basis. The patient has a IVC fi lter in place. She has history of a right lower extremity DVT 5 hypertension 6 hyperlipidemia 7 suspected UTI,Enterococcus 8 hypomagnesemia, corrected 9 Incomplete healing of an abdominal wound amount on signs of an acute infection 10 partial small bowel obstruction with some slight distention. There is still ongoing output in the colostomy bag. 11 Enterococcus faecalis in the urine Plan Keep the Xarelto on hold for another 24 hours allow full liq diet today and assess the patient's progression and hopefully we'll see some adequate bowel movement activity Keppra for seizure activity. A consider MRI of the brain once the type of Mediport that she has is known and if it's compatible with MRI machine we'll proceed with an MRI of the brain Seizure precautions Continue IV Zosyn monitor hemoglobin We'll continue to follow Rate to medical surgical floor We'll need to ultimately go back to [facility] cancer specially if she continues to have issues with bowel obstruction which I think it's partially this point in time.
--- NOTE | 2020-10-19 09:19 | P.PN ---
Subjective I will I will live multiplePatient was 70-year-old female with history of uterine cancer presently undergoing treatments for right uterine cancer and the a history of bowel resection secondary to uterine cancer metastasis has a colostomy came in after the diagnosis of for new onset of seizures which happened when she was at her PCPs office. Patient is presently on No More Active Seizure Episodes at This Time. Patient Was Evaluated by Neurology Is Recommending an MRI Unfortunately Unable to Get an MRI As family is still in the process of finding out about the [facility]. Patient although clinically doesn't have any signs or symptoms of bowel obstruction CT did show bilateral obstruction because of which transferred to [facility] was initiated about couple days ago, patient ended up staying in the hospital because of nonavailability of beds. Patient is passing gas abdomen is soft clinically patient doesn't appear to have bowel obstruction because of which patient was started on diet by general surgery here today. Patient clinically looks well. 12/20/2020 Patient had good bowel movements yesterday.. Patient is being downgraded to edical surgical floor. Abdominal x-rays are still showing small bowel dilatation. Patient was started on soft diet patient's abdomen is soft today. Probably will not need to transfer to [facility] Constitutional: Denied any fatigue denied any fever. Cardio vascular: denied any chest pain, palpitations Gastrointestinal denied any nausea vomiting Pulmonary: Denied any shortness of breath cough Neurologic denied any new focal deficits All inpatient medications were reviewed and appropriate changes in these medications as dictated in the interval history and assessment and plan. PHYSICAL EXAMINATION: GENERAL: The patient is alert and oriented x3, not in any acute distress. Well developed, well nourished. HEENT: Pupils are round and equally reacting to light. EOMI. No scleral icterus. No conjunctival pallor. Normocephalic, atraumatic. No pharyngeal erythema. No thyromegaly. CARDIOVASCULAR: S1 and S2 present. No murmurs, rubs, or gallops. PULMONARY: Chest is clear to auscultation, no wheezing or crackles. ABDOMEN: Soft, nontender, nondistended, normoactive bowel sounds. No palpable organomegaly. She has a colostomy MUSCULOSKELETAL: No joint swelling or deformity. EXTREMITIES: No cyanosis, clubbing, or pedal edema. NEUROLOGICAL: Gross neurological examination did not reveal any focal deficits. SKIN: No rashes. Assessment and plan -New-onset seizures: Need to rule out metastatic disease pending MRI due to above-mentioned reasons in waiting to find out more information regarding the [facility] before she can get an MRI is presently on Keppra no more active seizures -Bowel obstruction on the computed tomography scan , which improved significantly clinically. May not need transfer to [facility]. Although abdominal x-rays do show dilated small bowel loops. Uterine cancer with metastatic disease patient follows up with [facility] patient had abdominal hysterectomy bilateral salpingo-fracture me and a diabetic colostomy patient is receiving systemic chemotherapy -Mild acute renal failure: Prerenal azotemia secondary to dehydration continue with IV fluids. -Hypertension -Hyperlipidemia DVT prophylaxis: Objective - Vital Signs Vital signs: Vital Signs Temp 97.8 F 10/19/20 04:00 Pulse 62 10/19/20 04:00 Resp 12 10/19/20 04:00 BP 99/65 10/19/20 04:00 Pulse Ox 96 10/19/20 04:00 Intake & Output 10/18/20 10/19/20 10/19/20 18:59 06:59 18:59 Intake Total 1325 75 Output Total 500 Balance 825 75 Intake: IV 925 75 Piperacillin-Tazobactam 3 100 .375 gm In Sodium Chloride 0.9% 100 ml @ 200 mls/hr IVPB Q8HR [facility] Rx#:[id number] Sodium Chloride 0.9% 1, 825 75 000 ml @ 75 mls/hr IV . [id number] [facility] Rx#:[id number] Oral 400 Output: Urine 400 Stool 100 Other: Voiding Method External Catheter External Catheter # Voids 1 2 - Labs CBC & Chem 7: 10/19/20 02:54 10/19/20 02:54 Labs: Abnormal Lab Results - Last 24 Hours (Table) 10/19/20 10/19/20 Range/Units 02:54 02:54 RBC 2.65 L (3.80-5.40) m/uL Hgb 8.0 L (11.4-16.0) gm/dL Hct 25.1 L (34.0-46.0) % RDW 18.3 H (11.5-15.5) % Chloride 109 H (98-107) mmol/L Creatinine 1.10 H (0.52-1.04) mg/dL Calcium 8.1 L (8.4-10.2) mg/dL Total Bilirubin 0.1 L (0.2-1.3) mg/dL Total Protein 5.1 L (6.3-8.2) g/dL Albumin 2.2 L (3.5-5.0) g/dL Microbiology - Last 24 Hours (Table) 10/15/20 18:00 Blood Culture - Preliminary Blood No Growth after 72 hours 10/15/20 17:41 Blood Culture - Preliminary Blood No Growth after 72 hours
[2020-10-19] MEDS: ATORVASTATIN 40 MG TAB PO SCH (10:37)
[2020-10-19] MEDS: levETIRAcetam 500 MG TAB PO SCH ×2 (10:37→20:19)
[2020-10-19] MEDS: POTASSIUM CHLORIDE ER 20 MEQ TAB.ER PO SCH ×2 (10:38→20:19)
[2020-10-19] MEDS: METOPROLOL TARTRATE 50 MG TAB PO SCH (10:38)
[2020-10-19] MEDS: FERROUS SULFATE 325 MG TAB PO SCH (10:38)
[2020-10-19] MEDS: MAGNESIUM HYDROXIDE 2,400 MG/10 ML CUP PO SCH (10:39)
[2020-10-19] MEDS: SENNOSIDES 8.6 MG TAB PO SCH (10:39)
[2020-10-19] MEDS: polyethylene glycoL 3350 17 GM POWD.PACK PO SCH (10:39)
[2020-10-19] MEDS: ASPIRIN 325 MG TAB PO SCH (20:19)
[2020-10-20] MEDS: MAGNESIUM SULFATE-D5W PMX 1 GM in DEXTROSE/WATER 1 100ML.BAG IVPB SCH ×2 (06:38→11:20)
--- NOTE | 2020-10-20 09:19 | P.PN ---
Subjective Progress Note Date: 10/20/20 Principal diagnosis: Anemia Patient seems to be doing better again today. She was on a liquid diet and had no issues with nausea or vomiting. No pain. Her ostomy has a moderate volume of air and stool in it this morning. Again she is hungry and requesting solid foods. Order has already been placed for dysphagia diet. Objective - Vital Signs Vital signs: Vital Signs Temp 98.4 F 10/20/20 02:00 Pulse 68 10/20/20 02:00 Resp 13 10/20/20 02:00 BP 112/70 10/20/20 02:00 Pulse Ox 96 10/20/20 02:00 Intake & Output 10/19/20 10/20/20 10/20/20 18:59 06:59 18:59 Intake Total 1400 1150 Balance 1400 1150 Intake: IV 900 900 Piperacillin-Tazobactam 3 100 100 .375 gm In Sodium Chloride 0.9% 100 ml @ 200 mls/hr IVPB Q8HR [facility] Rx#:[id number] Sodium Chloride 0.9% 1, 800 800 000 ml @ 75 mls/hr IV . [id number] [facility] Rx#:[id number] Oral 500 250 Other: Voiding Method External Catheter External Catheter # Voids 2 3 - Exam Abdomen: Soft, minimal distention, nontender, ostomy functioning - Labs CBC & Chem 7: 10/19/20 02:54 10/19/20 02:54 Labs: Microbiology - Last 24 Hours (Table) 10/15/20 18:00 Blood Culture - Preliminary Blood No Growth after 96 hours 10/15/20 17:41 Blood Culture - Preliminary Blood No Growth after 96 hours Assessment and Plan (1) Anemia Narrative/Plan: Patient doing better today. Agree with plans for advancing diet. If suspicion for obstruction recurs recommend small bowel follow through. Continue to follow hemoglobin. Current Visit: Yes Status: Acute Code(s): D64.9 - ANEMIA, UNSPECIFIED SNOMED Code(s): 736463150
--- NOTE | 2020-10-20 11:01 | P.PN ---
Subjective Progress Note Date: 10/20/20 Patient was seen for a follow-up. Patient initially seen by Dr. Jacky Obregon. Please refer to his note for details. Patient at present is having her breakfast. States has not eaten for couple days and feels very hungry. Patient is a 70-year-old female with new onset seizure. Patient has history of uterine cancer, status post total abdominal hysterectomy and bilateral salpingo- oophorectomy with colostomy placement on chemotherapy. Patient also has history of DVT on Xarelto. Also has hypertension and hyperlipidemia. Patient had 2 [facility] seizures. 1 at home and one at her PCPs office. Patient did have some anemia, electrolyte imbalance, bowel obstruction, therefore metabolic causes may be the etiology. Patient denies tongue bite although she did lose control of urine with a seizure. Patient denies any use of alcohol, or use of sleeping aids on a regular basis. Patient has been started on Keppra 500 mg twice a day. Await MRI of the brain with and without contrast. Objective - Vital Signs Vital signs: Vital Signs Temp 98.4 F 10/20/20 02:00 Pulse 68 10/20/20 02:00 Resp 13 10/20/20 02:00 BP 112/70 10/20/20 02:00 Pulse Ox 96 10/20/20 02:00 Intake & Output 10/19/20 10/20/20 10/20/20 18:59 06:59 18:59 Intake Total 1400 1150 Balance 1400 1150 Intake: IV 900 900 Piperacillin-Tazobactam 3 100 100 .375 gm In Sodium Chloride 0.9% 100 ml @ 200 mls/hr IVPB Q8HR [facility] Rx#:[id number] Sodium Chloride 0.9% 1, 800 800 000 ml @ 75 mls/hr IV . [id number] [facility] Rx#:[id number] Oral 500 250 Other: Voiding Method External Catheter External Catheter # Voids 2 3 - Exam Patient's mental status is normal. Detailed testing deferred. She is alert and awake. Cranial nerves are all normal. Visual ivllalobos are full with no neglect. Face is symmetric and tongue protrudes to the midline. She has slightly slow mentation. Patient is hard of hearing. On muscle strength testing, the strength reveals about generalized weakness noticeable. Upper limbs were 5- bilaterally. Hip flexion 2-3, ankles 4-/3+, toe extension 3/3. She is areflexic and plantars are flat. - Labs CBC & Chem 7: 10/19/20 02:54 10/19/20 02:54 Labs: Microbiology - Last 24 Hours (Table) 10/15/20 18:00 Blood Culture - Preliminary Blood No Growth after 96 hours 10/15/20 17:41 Blood Culture - Preliminary Blood No Growth after 96 hours Assessment and Plan Assessment: New onset seizure (who had two [facility] seizure. One at home and one at her PCP office). Unknown exact cause at this time. Rule out brain metastasis (which can happen but is low percentage can cause this) and electrolyte imbalance provokes seizure. Anemia--received 2 units blood tranfusion Electrolyte imbalance (Magnesium 1.1 and ?hypocalcemia 8.1 but will get ionized calcium) due to vomiting Bowel obstruction Acute Urinary tract infection Acute kidney insufficiency History of uterine cancer status post total abdominal hysterectomy and bilateral salpingo-oophorectomy with colostomy placement on chemotherapy Right DVT on Xarelto Hypertension Hyperlipidemia Plan: Continue Keppra 500 mg every 12 hours. Seizure precautions. Await MRI the brain with and without. EEG revealed mild to moderate background slowing consistent with encephalopathy. No epileptiform activity was seen. General surgery team is on board. We'll defer the rest of the medical management the primary team. Patient was notified that the per the [place] DMV she cannot drive for 6 month until seizure free, to avoid the swimming unassisted, [place] or using heavy machinery. PT OT, evaluate gait. Patient has weakness of bilateral lower extremities, uncertain if related to plexopathy from hysterectomy, or neuropathy from chemotherapy. Hemoglobin A1c 5.8 on 05/08/2020. TFTs normal. Ammonia normal. We will check B12, folate, MMA, B6, SPEP and immunofixation electrophoresis. Pending ?transfer to [facility] when possible.
[2020-10-20] MEDS: ATORVASTATIN 40 MG TAB PO SCH (11:21)
[2020-10-20] MEDS: FERROUS SULFATE 325 MG TAB PO SCH (11:21)
[2020-10-20] MEDS: levETIRAcetam 500 MG TAB PO SCH ×2 (11:21→21:16)
[2020-10-20] MEDS: SENNOSIDES 8.6 MG TAB PO SCH ×2 (11:21→15:03)
[2020-10-20] MEDS: POTASSIUM CHLORIDE ER 20 MEQ TAB.ER PO SCH ×2 (11:21→21:16)
[2020-10-20] MEDS: METOPROLOL TARTRATE 50 MG TAB PO SCH (11:21)
[2020-10-20] MEDS: PIPERACILLIN-TAZOBACTAM 3.375 GM in SODIUM CHLORIDE 0.9% 100 ML IVPB SCH ×3 (11:22→23:48)
--- NOTE | 2020-10-20 12:31 | P.PN ---
Subjective Progress Note Date: 10/20/20 Principal diagnosis: New-onset seizure 70-year-old female patient was transferred to the intensive care unit due to concerns of GI bleed and profound anemia with a hemoglobin of 5.9. Noted the patient has history of uterine cancer diagnosed recently post total abdominal hysterectomy and bilateral salpingo-oophorectomy and diverticular colostomy and the patient has been receiving systemic chemotherapy on outpatient basis for [facility]. The patient was brought into the hospital originally because of having episodic seizures. The patient was having witnessed seizures as reported by the that were lasting between 5-10 minutes tonic and clonic in nature. She presented to her physician's office where she had another seizure and EMS was called to the scene and the patient was transferred to the hospital. Initially she was admitted to the medical floor. Later on moved to the intensive care unit because of her low hemoglobin. Note that she has colostomy. No bloody output in the colostomy bag. No hematemesis. No abdominal distention. Surgical site is dry clean and intact. It has not completely healed and there is an area where there is small amount of packing in that area which is open measuring 1 cm in size and is not infected or draining at this point in time. She also has history of right lower extremity DVT and the patient has an IVC filter in place and she's been taking Xarelto 20 mg on outpatient basis. Her last systemic chemotherapy was around 3 weeks ago. She does have some chronic anemia. No previous history of seizure activity. No alcohol rhythm. No head trauma. CAT scan of the brain was essentially negative. The patient was seen by neurology and the patient was started on Keppra. Currently she is awake and alert and she is following commands and answering questions appropriately. She is afebrile and she is hemodynamically stable. CAT scan of the brain showed age-related atrophy along with chronic sm all vessel ischemic change. The white cell count was 2.9 probably related to systemic chemotherapy. UA may indicate the possibility of underlying infection. Electrolytes showed a low magnesium with zinc replaced. LFTs are normal. Calcium level is at 8.1 EEG was completed and was abnormal and there was background slowing with mild to moderate encephalopathy. No focal epileptic foci seen. The patient is seen today 10/17/2020 in follow-up in the intensive care unit. She is currently resting fairly comfortably in bed. Awake and alert in no acute distress. She is maintaining good O2 saturations in the upper 90s on room air. She's been afebrile. Hemodynamically stable. Computed tomography scan of the abdomen and pelvis revealed mild abdominal ascites in the upper abdomen. There is bilateral lower lobe pulmonary infiltrates and atelectasis at the bases of the lungs. Dilated small bowel in the upper abdomen consistent with high-grade mechanical small bowel obstruction. Transition point is difficult to identify more likely related to the surgery and the pelvis with surgical clips and dilated loops. Obstruction appears new compared to old exam. There is left- sided hydronephrosis and hydroureter which is new. No ostomy function since yesterday. She is status post 2 units of packed red blood cells. Current hemoglobin 8.1. Blood cultures positive for group D streptococcus. The cultures revealing no growth. White count 5.0. Sodium 138. Potassium 4.5. Creatinine 1.17. She remains on 0.9 normal saline at 75 ML's per hour. Antibiotics in the form of Zosyn. No further seizure activity. She remains on Keppra. On 10/18/2020 , the patient is comfortable, resting in bed, extremely hungry and she wants fluid as the patient is that she is starving. There is still activity in the colostomy bag and there is some liquid material collecting that was nonbloody on that is no melanotic. It emesis. No abdominal pain. No nausea. No vomiting. An abdominal x-ray that was done yesterday on 10/17/2020 shows some dilated small bowel loops and this is still suspecting small bowel obstruction. Nevertheless, clinically, the patient has no evidence of any abdominal distention and she has adequate bowel sounds and adequate bowel activity in the colostomy bag. There is some scattered colonic air on the abdominal film. There is also left-sided colostomy. No free air. Atelectatic changes in lung bases bilaterally. No chest pain. Hemoglobin stable at 7.9. Renal function stable with a creatinine of 1.04.. Is at 15. Platelet is at 340. The white cell count is at 4.2. She is currently on IV fluids with normal saline at the rate of 75 ML. Neurologically awake and alert. No focal neurological deficit. No seizure activity overnight. The patient remains on Keppra. On today's evaluation of 10/19/2020, the patient is sedated intensive care unit. She is however downgraded. We allowed her some soft diet yesterday. On today's evaluation she feels slightly mobile clot load tubes. Mild abdominal discomfort. X-rays of the abdomen shows small bowel dilatation. Ostomy output has decreased and it's in order of 50 mL today. As such, there may be some partial mechanical obstruction. Surgery saw the patient and allow the patient to take only clear liquids. The plan is ultimately to take this patient back to [facility] regarding her complicated history. Her hemoglobin has remained stable at 8.0. Renal function is stable. Electrodes are all stable. She is receiving Keppra. She hasn't had any further bouts of seizure. She is on normal saline at the rate of 75 an hour. Patient was reevaluated today on 10/20/2020, patient remains in the ICU as an overflow. Patient is on IV fluid at 0.9 normal saline 75 mL per hour. She is hemodynamically stable. No further seizures noted. And her hemoglobin is improved. Remains off Xarelto. Her initial hemoglobin was 5.9. Patient had a recent diagnosis of uterine cancer with metastasis. She is status post total abdominal hysterectomy and oophorectomy Her CT of the brain showed no evidence of metastasis. Patient received 2 units of packed RBCs since admission. The patient tells me today that she is doing well, denies any specific complaints. WBC count is 5 hemoglobin is 8 electrodes are normal renal profile is normal BUN is 12 creatinine 1.1. Abdominal films continued to show possible bowel obstruction and lower lobe atelectasis. Objective - Vital Signs Vital signs: Vital Signs Temp 98.4 F 10/20/20 02:00 Pulse 68 10/20/20 02:00 Resp 13 10/20/20 02:00 BP 112/70 10/20/20 02:00 Pulse Ox 96 10/20/20 02:00 Intake & Output 10/19/20 10/20/20 10/20/20 18:59 06:59 18:59 Intake Total 1400 1150 Balance 1400 1150 Intake: IV 900 900 Piperacillin-Tazobactam 3 100 100 .375 gm In Sodium Chloride 0.9% 100 ml @ 200 mls/hr IVPB Q8HR [facility] Rx#:[id number] Sodium Chloride 0.9% 1, 800 800 000 ml @ 75 mls/hr IV . [id number] [facility] Rx#:[id number] Oral 500 250 Other: Voiding Method External Catheter External Catheter # Voids 2 3 - Exam Physical Exam: Revealed a 70-year-old female in no distress. Head: Atraumatic, normocephalic. HEENT:[Neck is supple.] [No neck masses.] [No thyromegaly.] [No JVD.] Dry mucous membranes noted. Chest: [Clear throughout, no crackles, no rhonchi, no wheezes.] Cardiac Exam: [Normal S1 and S2, no S3 gallop, 2/6 systolic murmur at the left lower sternal border. Abdomen: [Soft, nontender, no megaly, no rebound, no guarding, normal bowel sounds.] Extremities: [No clubbing, no edema, no cyanosis.] Neurological Exam: [No focal neurologic deficit.] Alert and oriented 3. Catheter: Normal mood affect and normal mental status examination. - Labs CBC & Chem 7: 10/19/20 02:54 10/19/20 02:54 Labs: Microbiology - Last 24 Hours (Table) 10/15/20 18:00 Blood Culture - Preliminary Blood No Growth after 96 hours 10/15/20 17:41 Blood Culture - Preliminary Blood No Growth after 96 hours Assessment and Plan Assessment: Impression: New onset seizure, being addressed by neurology, patient remains on Keppra, CT of the brain is nondiagnostic. Acute on chronic anemia, exact cause is not clear, no active bleeding noted, remains of Xarelto. Require 2 units of packed RBCs. Metastatic uterine cancer. Status post abdominal hysterectomy, bilateral oophorectomy, and diverticular colostomy, on systemic chemotherapy. History of DVT, patient has IVC filter in place, and we'll keep her off Xarelto 4. Benign essential hypertension Enterococcal urinary tract infection Small bowel obstruction and abdominal distention Recommendation: Transfer patient out of the ICU to a regular medical floor. Continue to hold Xarelto Continue Keppra for seizures Continue seizure precautions. Continue Zosyn for enterococcal infection. Continue to monitor hemoglobin. Will defer decision about dressing the patient to [facility] to her admitting physician and to surgery on the case. Again we'll clear the patient to be transferred out of the ICU to a regular medical floor today. Time with Patient: Less than 30
[2020-10-20 14:50] LABS: Folate, Serum 5.2 ng/mL
--- NOTE | 2020-10-20 15:00 | P.PN ---
Subjective Progress Note Date: 10/20/20 HISTORY OF PRESENT ILLNESS This is a 70-year-old -[place] female with a previous medical history significant for hypertension and hypertensive cardiovascular disease, hyperl ipidemia, uterine cancer status post total abdominal hysterectomy and salpingectomy oophorectomy and followed with [facility] oncologist at [facility] in [place], DVT status post thrombectomy and stent placement and IVC filter. Patient's last hospitalization was in March 2020 at which time she was treated after a fall with left lower extremity weakness. She did have elevated troponins at that time with abnormal EKG but had recently undergone pharmacological stress test and was cleared by cardiology. Patient barely had a seizure yesterday that lasted about 15 minutes, colonic tonic-type seizure that was witnessed by her and she also had a seizure while at the office. EMS was called to transport the patient to the hospital. Patient presented to [facility] emergency center for evaluation by EMS. Upon arrival she was oriented 3. She was found to be afebrile, initial heart rate 129, blood pressure 99/71, pulse ox 100%. EKG was a sinus tachycardia. WBC 2.9, hemoglobin 12.1, platelet count 171. Sodium 135, potassium 4.5, chloride 101, CO2 25, BUN 22 and creatinine 1.26. Blood sugar 105. Calcium 8.1, magnesium 1.1. Total bilirubin 0.1, AST 26, ALT 14, alkaline phosphatase 105. Albumin 2.7. Urinalysis was turbid, blood moderate, leukoesterase large, WBCs greater than 182 with WBC clumps many and bacteria occasional. Lactic acid was 1.4. Ammonia level less than 9. Troponin 0.018. Urine culture is in process. CAT scan of the brain showed age related atrophy and chronic small vessel ischemic change without acute intracranial process. M agnesium was replaced with 2 g IV piggyback, status post 2 L of IV fluids. Patient was started on IV fluids, IV Keppra and neurology consult requested. She has remained afebrile, heart rate in the low 100s and blood pressure 111/79. 10/17: Hemoglobin came back yesterday at 5.9 and patient had episode of emesis the nurse reported as fecal-type material. Patient was ordered for 2 units of packed RBCs and transferred into the intensive care unit, consult added for manager exchange and general surgery. Repeat hemoglobin today is 8.1 after 2 units of packed RBCs. WBC 5.0 and platelet count 314. Electrolytes are normal. BUN 16 and creatinine 1.17. Total bilirubin 0.2, AST 49, ALT 12, alkaline ph osphatase 110. Albumin 2.4. Urine cultures positive for group D enterococcus. Blood culture no growth after 24 hours., CAT scan of the abdomen and pelvis reveals mild abdominal ascites in the upper abdomen. Bilateral lower lobe pulmonary infiltrates and atelectasis and pleural effusion. Dilated small bowel in the upper abdomen consistent with high-grade mechanical small bowel obstruction. Transition point is difficult to identify but more likely related to the surgery and the pelvis and surgical clips and dilated loops. Obstruction appears new compared to old exam. There is left-sided hydronephrosis and hydroureter which is also new compared to old. Lower lobe pulmonary abnormaliti es. Patient is seen today in the intensive care unit. She states she is feeling a lot better from yesterday and unfortunately patient ate breakfast. Patient was supposed to be nothing by mouth. She denies any vomiting. No output from colostomy. Dr. Kumar has advised to transfer patient to [facility]. Case management has been contacted to start arrangements. 10/19/2020 Patient had good bowel movements yesterday.. Patient is being downgraded to medical surgical floor. Abdominal x-rays are still showing small bowel dilatation. Patient was started on soft diet patient's abdomen is soft today. Probably will not need to transfer to [facility] 10/20: She remains in intensive care unit waiting for a bed and states that she is hungry. She is currently on clear liquid diet and requesting more food. Soft diet will be started. Patient has good output from ostomy. She denies any abdominal tenderness. At this point, transferred to [facility] will be canceled. Dr. Kumar has recommended a small bowel follow-through. She has been afebrile, heart rate 70, blood pressure 112/75, pulse ox 95% on room air. Patient has been transfused a total of 2 units of packed RBCs during this hospitalization. Patient is followed by neurology and maintained on Keppra 500 mg every 12 hours. MRI of the brain has been ordered by neurology. Repeat blood work will be ordered for tomorrow. REVIEW OF SYSTEMS Constitutional: No fever, no chills, no night sweats. No weight change. No weakness, fatigue or lethargy. No daytime sleepiness. EENT: No headache. No blurred vision or double vision, no loss of vision. No loss of Hearing, no ringing in the ears, no dizziness. No nasal drainage or congestion. No epistaxis. No sore throat. Lungs: No shortness of breath, cough, no sputum production. No wheezing. Cardiovascular: No chest pain, no lower extremity edema. No palpitations. No paroxysmal nocturnal dyspnea. No orthopnea. No lightheadedness or dizziness. No syncopal episodes. Abdominal: No abdominal pain. No nausea, vomiting. No diarrhea. Denies constipation. No bloody or tarry stools.. No loss of appetite. Genitourinary: No dysuria, increased frequency, urgency. No urinary retention. Musculoskeletal: No myalgias. No muscle weakness, no gait dysfunction, no frequent falls. No back pain. No neck pain. Integumentary: Positive abdominal wound, chronic, no lesions. No rash or pruritus. No unusual bruising. No change in hair or nails. Neurologic: No aphasia. No facial droop. No change in mentation. No head injury. No headache. No paralysis. No paresthesia. Positive seizure activity. Psychiatric: No depression. No anxiety. No mood swings. Endocrine: No abnormal blood sugars. No weight change. No excessive sweating or thirst. No cold intolerance. PHYSICAL EXAMINATION Gen: This is a 70-year-old female, resting in ICU bed and appears to be comfortable and in no acute distress. HEENT: Head is atraumatic, normocephalic. Pupils equal, round. Sclerae is anicteric. NECK: Supple. No JVD. No lymphadenopathy. No thyromegaly. Chest: Decreased breath sounds at bases, few rhonchi, no expiratory wheezes, no chest wall tenderness, no intercostal retractions. director of retail merchandising sinus rhythm. Heart: First heart sound is depressed, second heart sounds normal, there is systolic ejection murmur 2/6 located in the left sternal border. ABDOMEN: Soft. Bowel sounds are present. No masses. No tenderness. Small open wound at the previous surgical site. Colostomy in place with brown semi-formed stool.. EXTREMITIES: No pedal edema. No calf tenderness. NEUROLOGICAL: Patient is awake, alert and oriented x3. Cranial nerves 2 through 12 are grossly intact. ASSESSMENT AND PLAN 1. New onset seizure. Continue seizure precautions, neurology consult appreciated, continue Keppra 500 mg every 12 hours. 2. Electrolyte abnormalities with hypomagnesemia, hypocalcemia. 3. Acute urinary tract infection. Recent culture positive for Pseudomonas. Patient's been started on Zosyn 3.375 g IV piggyback every 8 hours, await urine culture, blood culture salts. 4. Acute kidney injury. Patient is status post 2 L of IV fluids. Recheck kidney function and electrolytes. 5. High-grade mechanical small bowel obstruction, present on admission, resolved. Consult with Dr. Kumar appreciated. Transfer to [facility] canceled. Advance diet to soft. 6. Left-sided hydronephrosis and hydroureter. Continue to monitor urinary function. 7. Uterine cancer status post total abdominal hysterectomy, bilateral salpingo- oophorectomy with resultant colostomy follows with [facility] oncology at [facility]. 8. Hypertension and hypertensive cardiovascular disease. Continue patient on metoprolol 50 mg orally every day. 9. DVT of the left lower extremity. Continue Xarelto 20 mg at bedtime. 10. Hyperlipidemia. Continue patient Lipitor 40 mg orally once every day. 11. Medical debility. Physical therapy evaluation 12. Leukopenia most likely secondary to underlying uterine cancer. 13. Small surgical wound, abdominal. Continue Aquacel Ag every other day. 14. DVT prophylaxis. Xarelto on hold. 15. GI prophylaxis. Protonix 40 mg IV push every 24 hours. DISCHARGE PLAN Home Impression and plan of care have been directed as dictated by the signing physician. Roya Jon nurse practitioner acting as scribe for signing physician. Objective - Vital Signs Vital signs: Vital Signs Temp 98.4 F 10/20/20 02:00 Pulse 68 10/20/20 02:00 Resp 13 10/20/20 02:00 BP 112/70 10/20/20 02:00 Pulse Ox 96 10/20/20 02:00 Intake & Output 10/19/20 10/20/20 10/20/20 18:59 06:59 18:59 Intake Total 1400 Balance 1400 Intake: IV 900 Piperacillin-Tazobactam 3 100 .375 gm In Sodium Chloride 0.9% 100 ml @ 200 mls/hr IVPB Q8HR [facility] Rx#:[id number] Sodium Chloride 0.9% 1, 800 000 ml @ 75 mls/hr IV . [id number] [facility] Rx#:[id number] Oral 500 Other: Voiding Method External Catheter External Catheter # Voids 2 - Labs CBC & Chem 7: 10/19/20 02:54 10/19/20 02:54 Labs: Microbiology - Last 24 Hours (Table) 10/15/20 18:00 Blood Culture - Preliminary Blood No Growth after 96 hours 10/15/20 17:41 Blood Culture - Preliminary Blood No Growth after 96 hours
[2020-10-20] MEDS: polyethylene glycoL 3350 17 GM POWD.PACK PO SCH (15:03)
[2020-10-20] MEDS: MAGNESIUM HYDROXIDE 2,400 MG/10 ML CUP PO SCH (15:03)
[2020-10-20] MEDS: SODIUM CHLORIDE 0.9% 1,000 ML IV SCH (16:55)
[2020-10-20] MEDS: ASPIRIN 325 MG TAB PO SCH (21:16)
[2020-10-21 06:12] LABS: Anisocytosis Slight; HGB 8.6 gm/dL (11.4-16.0); Hypochromasia Slight; MCHC 33.1 g/dL (31.0-37.0); MCV 93.5 fL (80.0-100.0); Mean Platelet Volume 7.9; Platelet Count 422 k/uL (150-450); Poikilocytosis Slight; RBC 2.78 m/uL (3.80-5.40); RDW 17.4 % (11.5-15.5); WBC 7.4 k/uL (3.8-10.6)
[2020-10-21] MEDS: polyethylene glycoL 3350 17 GM POWD.PACK PO SCH (07:38)
[2020-10-21] MEDS: PIPERACILLIN-TAZOBACTAM 3.375 GM in SODIUM CHLORIDE 0.9% 100 ML IVPB SCH (07:38)
[2020-10-21] MEDS: levETIRAcetam 500 MG TAB PO SCH ×2 (07:39→20:41)
[2020-10-21] MEDS: SENNOSIDES 8.6 MG TAB PO SCH (07:39)
[2020-10-21] MEDS: MAGNESIUM HYDROXIDE 2,400 MG/10 ML CUP PO SCH (07:39)
[2020-10-21] MEDS: METOPROLOL TARTRATE 50 MG TAB PO SCH (07:39)
[2020-10-21] MEDS: ATORVASTATIN 40 MG TAB PO SCH (07:40)
[2020-10-21] MEDS: POTASSIUM CHLORIDE ER 20 MEQ TAB.ER PO SCH ×2 (07:40→20:41)
[2020-10-21] MEDS: FERROUS SULFATE 325 MG TAB PO SCH (07:40)
[2020-10-21 10:14] LABS: African American GFR (CKD) 75.6 (60.0-200.0); Albumin 2.2 g/dL (3.80-4.90); Albumin/Globulin Ratio 0.85 (1.60-3.17); Anion Gap 6.1 mmol/L (4.00-12.00); BUN/Creat Ratio 13.33 Ratio (12.00-20.00); Calcium 7.6 mg/dL (8.7-10.3); Carbon Dioxide 21.9 mmol/L (21.6-31.8); Globulin 2.6 g/dL (1.6-3.3); Magnesium 1.3 mg/dL (1.5-2.4); Non-African American GFR(CKD) 65.2 (60.0-200.0); Potassium 4.2 mmol/L (3.5-5.5); Total Bilirubin 0.2 mg/dL (0.2-1.2); Total Protein 4.8 g/dL (6.2-8.2)
--- NOTE | 2020-10-21 11:36 | P.PN ---
Subjective Progress Note Date: 10/21/20 Principal diagnosis: Anemia, new onset seizure 70-year-old female patient was transferred to the intensive care unit due to concerns of GI bleed and profound anemia with a hemoglobin of 5.9. Noted the patient has history of uterine cancer diagnosed recently post total abdominal hysterectomy and bilateral salpingo-oophorectomy and diverticular colostomy and the patient has been receiving systemic chemotherapy on outpatient basis for [facility]. The patient was brought into the hospital originally because of having episodic seizures. The patient was having witnessed seizures as reported by the that were lasting between 5-10 minutes tonic and clonic in nature. She presented to her physician's office where she had another seizure and EMS was called to the scene and the patient was transferred to the hospital. Initially she was admitted to the medical floor. Later on moved to the intensive care unit because of her low hemoglobin. Note that she has colostomy. No bloody output in the colostomy bag. No hematemesis. No abdominal distention. Surgical site is dry clean and intact. It has not completely healed and there is an area where there is small amount of packing in that area which is open measuring 1 cm in size and is not infected or draining at this point in time. She also has history of right lower extremity DVT and the patient has an IVC filter in place and she's been taking Xarelto 20 mg on outpatient basis. Her last systemic chemotherapy was around 3 weeks ago. She does have some chronic anemia. No previous history of seizure activity. No alcohol rhythm. No head trauma. CAT scan of the brain was essentially neg ative. The patient was seen by neurology and the patient was started on Keppra. Currently she is awake and alert and she is following commands and answering questions appropriately. She is afebrile and she is hemodynamically stable. CAT scan of the brain showed age-related atrophy along with chronic small vessel ischemic change. The white cell count was 2.9 probably related to systemic chemotherapy. UA may indicate the possibility of underlying infection. Electrolytes showed a low magnesium with zinc replaced. LFTs are normal. Calcium level is at 8.1 EEG was completed and was abnormal and there was background slowing with mild to moderate encephalopathy. No focal epileptic foci seen. The patient is seen today 10/17/2020 in follow-up in the intensive care unit. She is currently resting fairly comfortably in bed. Awake and alert in no acute distress. She is maintaining good O2 saturations in the upper 90s on room air. She's been afebrile. Hemodynamically stable. Computed tomography scan of the abdomen and pelvis revealed mild abdominal ascites in the upper abdomen. There is bilateral lower lobe pulmonary infiltrates and atelectasis at the bases of the lungs. Dilated small bowel in the upper abdomen consistent with high-grade mechanical small bowel obstruction. Transition point is difficult to identify more likely related to the surgery and the pelvis with surgical clips and dilated loops. Obstruction appears new compared to old exam. There is left- sided hydronephrosis and hydroureter which is new. No ostomy function since yesterday. She is status post 2 units of packed red blood cells. Current hemoglobin 8.1. Blood cultures positive for group D streptococcus. The cultures revealing no growth. White count 5.0. Sodium 138. Potassium 4.5. Creatinine 1.17. She remains on 0.9 normal saline at 75 ML's per hour. Antibiotics in the form of Zosyn. No further seizure activity. She remains on Keppra. On 10/18/2020 , the patient is comfortable, resting in bed, extremely hungry and she wants fluid as the patient is that she is starving. There is still activity in the colostomy bag and there is some liquid material collecting that was nonbloody on that is no melanotic. It emesis. No abdominal pain. No nausea. No vomiting. An abdominal x-ray that was done yesterday on 10/17/2020 shows some dilated small bowel loops and this is still suspecting small bowel obstruction. Nevertheless, clinically, the patient has no evidence of any a bdominal distention and she has adequate bowel sounds and adequate bowel activity in the colostomy bag. There is some scattered colonic air on the abdominal film. There is also left-sided colostomy. No free air. Atelectatic changes in lung bases bilaterally. No chest pain. Hemoglobin stable at 7.9. Renal function stable with a creatinine of 1.04.. Is at 15. Platelet is at 340. The white cell count is at 4.2. She is currently on IV fluids with normal saline at the rate of 75 ML. Neurologically awake and alert. No focal neurological deficit. No seizure activity overnight. The patient remains on Keppra. On today's evaluation of 10/19/2020, the patient is sedated intensive care unit. She is however downgraded. We allowed her some soft diet yesterday. On today's evaluation she feels slightly mobile clot load tubes. Mild abdominal discomfort. X-rays of the abdomen shows small bowel dilatation. Ostomy output has decreased and it's in order of 50 mL today. As such, there may be some partial mechanical obstruction. Surgery saw the patient and allow the patient to take only clear liquids. The plan is ultimately to take this patient back to [facility] regarding her complicated history. Her hemoglobin has remained stable at 8.0. Renal function is stable. Electrodes are all stable. She is receiving Keppra. She hasn't had any further bouts of seizure. She is on normal saline at the rate of 75 an hour. Patient was reevaluated today on 10/20/2020, patient remains in the ICU as an overflow. Patient is on IV fluid at 0.9 normal saline 75 mL per hour. She is hemodynamically stable. No further seizures noted. And her hemoglobin is improved. Remains off Xarelto. Her initial hemoglobin was 5.9. Patient had a recent diagnosis of uterine cancer with metastasis. She is status post total abdominal hysterectomy and oophorectomy Her CT of the brain showed no evidence of metastasis. Patient received 2 units of packed RBCs since admission. The patient tells me today that she is doing well, denies any specific complaints. WBC count is 5 hemoglobin is 8 electrodes are normal renal profile is normal BUN is 12 creatinine 1.1. Abdominal films continued to show possible bowel obstruction and lower lobe atelectasis. On 10/21/2020 patient seen in follow-up. Patient is currently awake and alert, oriented 3, she is sitting up in the recliner, breathing comfortably, room air pulse ox is 100%, lung sounds are clear, respirations are equal and not labored, patient is afebrile. She has had no pulmonary complaints, have a migraine this morning, she is sitting in a dark room right now, but otherwise she is awake and alert, oriented 3, no recurrence of seizures, she remains on Zosyn for urinary tract infection secondary to Enterococcus faecalis, blood cultures have been negative, vital signs have been stable. Objective - Vital Signs Vital signs: Vital Signs Temp 98.2 F 10/21/20 04:00 Pulse 73 10/21/20 04:00 Resp 16 10/21/20 04:00 BP 122/87 10/21/20 04:00 Pulse Ox 100 10/21/20 04:00 Intake & Output 10/20/20 10/21/20 10/21/20 18:59 06:59 18:59 Intake Total 800 Balance 800 Intake: IV 700 Piperacillin-Tazobactam 3 100 .375 gm In Sodium Chloride 0.9% 100 ml @ 200 mls/hr IVPB Q8HR [facility] Rx#:[id number] Sodium Chloride 0.9% 1, 600 000 ml @ 75 mls/hr IV . [id number] [facility] Rx#:[id number] Oral 100 Other: Voiding Method External Catheter External Catheter # Bowel Movements 1 - Exam GENERAL EXAM: Alert, pleasant, 70-year-old -[place] female, on room air with pulse ox of 100% comfortable in no apparent distress. HEAD: Normocephalic/atraumatic. EYES: Normal reaction of pupils, equal size. Conjunctiva pink, sclera white. NOSE: Clear with pink turbinates. THROAT: No erythema or exudates. NECK: No masses, no JVD, no thyroid enlargement, no adenopathy. CHEST: No chest wall deformity. Symmetrical expansion. LUNGS: Equal air entry with no crackles, wheeze, rhonchi or dullness. CVS: Regular rate and rhythm, normal S1 and S2, no gallops, no murmurs, no rubs ABDOMEN: Soft, nontender. No hepatosplenomegaly, normal bowel sounds, no guarding or rigidity. Colostomy is in place EXTREMITIES: No clubbing, no edema, no cyanosis, 2+ pulses and upper and lower extremities. MUSCULOSKELETAL: Muscle strength and tone normal. SPINE: No scoliosis or deformity SKIN: No rashes CENTRAL NERVOUS SYSTEM: Alert and oriented -3. No focal deficits, tone is normal in all 4 extremities. PSYCHIATRIC: Alert and oriented -3. Appropriate affect. Intact judgment and insight. - Labs CBC & Chem 7: 10/21/20 05:38 10/21/20 05:38 Labs: Abnormal Lab Results - Last 24 Hours (Table) 10/20/20 10/20/20 10/21/20 Range/Units 03:06 03:06 05:38 RBC (3.80-5.40) m/uL Hgb (11.4-16.0) gm/dL Hct (34.0-46.0) % RDW (11.5-15.5) % Chloride 111 H (96-109) mmol/L Calcium 7.6 L (8.7-10.3) mg/dL Magnesium 1.3 L (1.5-2.4) mg/dL Total Protein 4.8 L (6.2-8.2) g/dL Total Protein (PEP) 5.0 L (6.2-8.2) g/dL Albumin 2.20 L (3.80-4.90) g/dL Albumin/Globulin Ratio 0.85 L (1.60-3.17) g/dL Vitamin B12 1573.0 H (200.0-944.0) pg/mL 10/21/20 Range/Units 05:38 RBC 2.78 L (3.80-5.40) m/uL Hgb 8.6 L (11.4-16.0) gm/dL Hct 26.0 L (34.0-46.0) % RDW 17.4 H (11.5-15.5) % Chloride (96-109) mmol/L Calcium (8.7-10.3) mg/dL Magnesium (1.5-2.4) mg/dL Total Protein (6.2-8.2) g/dL Total Protein (PEP) (6.2-8.2) g/dL Albumin (3.80-4.90) g/dL Albumin/Globulin Ratio (1.60-3.17) g/dL Vitamin B12 (200.0-944.0) pg/mL Microbiology - Last 24 Hours (Table) 10/15/20 18:00 Blood Culture - Preliminary Blood No Growth after 120 hours 10/15/20 17:41 Blood Culture - Preliminary Blood No Growth after 120 hours Assessment and Plan Plan: Assessment: 1 anemia, multifactorial, postchemotherapy along with a component of chronic anemia. No clear indication for an acute GI bleed. She is off Xarelto. The patient is having a stable hemoglobin. 2 new onset seizure, CAT scan of the brain showing no acute abnormalities. No evidence of any CLINICAL ACCOUNT MANAGER metastases based on the CAT scan of the brain. Some minor electrode abnormalities at the time of admission. Currently on Keppra and neurology is on consult. Has not seized over the past 24 hours. The patient is still on Keppra. MRI of the brain is currently on hold pending further input regarding the type of ports that she has whether this is compatible with our MRI magnets. 3 uterine cancer post-abdominal hysterectomy and bilateral salpingo-oophorectomy and diverticular colostomy receiving systemic chemotherapy 4 history of DVT maternal Xarelto on outpatient basis. The patient has a IVC filter in place. She has history of a right lower extremity DVT 5 hypertension 6 hyperlipidemia 7 suspected UTI,Enterococcus 8 hypomagnesemia, corrected 9 Incomplete healing of an abdominal wound amount on signs of an acute infection 10 partial small bowel obstruction with some slight distention. There is still ongoing output in the colostomy bag. 11 Enterococcus faecalis in the urine Plan: No pulmonary complaints Hemodynamically stable Patient is on room air Breathing comfortably Today's labs have been noted No evidence of active GI bleeding Hemoglobin is 8.6 Pulmonary service will sign off and follow on an as-needed basis Possible discharge home today when cleared by medicine and neurology I performed a history & physical examination of the patient and discussed their management with my nurse practitioner, Lilly Ortiz. I reviewed the nurse practitioner's note and agree with the documented findings and plan of care. Lung sounds are positive for diminished breath sounds. The findings and the impression was discussed with the patient. I attest to the documentation by the nurse practitioner. Time with Patient: Less than 30
--- NOTE | 2020-10-21 11:49 | P.PN ---
Subjective Progress Note Date: 10/21/20 HISTORY OF PRESENT ILLNESS This is a 70-year-old -Chinese female with a previous medical history significant for hypertension and hypertensive cardiovascular disease, hyperl ipidemia, uterine cancer status post total abdominal hysterectomy and salpingectomy oophorectomy and followed with [employer] oncologist at [facility] in [place], DVT status post thrombectomy and stent placement and IVC filter. Patient's last hospitalization was in March 2020 at which time she was treated after a fall with left lower extremity weakness. She did have elevated troponins at that time with abnormal EKG but had recently undergone pharmacological stress test and was cleared by cardiology. Patient barely had a seizure yesterday that lasted about 15 minutes, colonic tonic-type seizure that was witnessed by her and she also had a seizure while at the office. EMS was called to transport the patient to the hospital. Patient presented to [facility] emergency center for evaluation by EMS. Upon arrival she was oriented 3. She was found to be afebrile, initial heart rate 129, blood pressure 99/71, pulse ox 100%. EKG was a sinus tachycardia. WBC 2.9, hemoglobin 12.1, platelet count 171. Sodium 135, potassium 4.5, chloride 101, CO2 25, BUN 22 and creatinine 1.26. Blood sugar 105. Calcium 8.1, magnesium 1.1. Total bilirubin 0.1, AST 26, ALT 14, alkaline phosphatase 105. Albumin 2.7. Urinalysis was turbid, blood moderate, leukoesterase large, WBCs greater than 182 with WBC clumps many and bacteria occasional. Lactic acid was 1.4. Ammonia level less than 9. Troponin 0.018. Urine culture is in process. CAT scan of the brain showed age related atrophy and chronic small vessel ischemic change without acute intracranial process. M agnesium was replaced with 2 g IV piggyback, status post 2 L of IV fluids. Patient was started on IV fluids, IV Keppra and neurology consult requested. She has remained afebrile, heart rate in the low 100s and blood pressure 111/79. 7/9: Hemoglobin came back yesterday at 5.9 and patient had episode of emesis the nurse reported as fecal-type material. Patient was ordered for 2 units of packed RBCs and transferred into the intensive care unit, consult added for geropsychologist and general surgery. Repeat hemoglobin today is 8.1 after 2 units of packed RBCs. WBC 5.0 and platelet count 314. Electrolytes are normal. BUN 16 and creatinine 1.17. Total bilirubin 0.2, AST 49, ALT 12, alkaline ph osphatase 110. Albumin 2.4. Urine cultures positive for group D enterococcus. Blood culture no growth after 24 hours., CAT scan of the abdomen and pelvis reveals mild abdominal ascites in the upper abdomen. Bilateral lower lobe pulmonary infiltrates and atelectasis and pleural effusion. Dilated small bowel in the upper abdomen consistent with high-grade mechanical small bowel obstruction. Transition point is difficult to identify but more likely related to the surgery and the pelvis and surgical clips and dilated loops. Obstruction appears new compared to old exam. There is left-sided hydronephrosis and hydroureter which is also new compared to old. Lower lobe pulmonary abnormaliti es. Patient is seen today in the intensive care unit. She states she is feeling a lot better from yesterday and unfortunately patient ate breakfast. Patient was supposed to be nothing by mouth. She denies any vomiting. No output from colostomy. Dr. Kumar has advised to transfer patient to [facility]. Case management has been contacted to start arrangements. 10/19/2020 Patient had good bowel movements yesterday.. Patient is being downgraded to medical surgical floor. Abdominal x-rays are still showing small bowel dilatation. Patient was started on soft diet patient's abdomen is soft today. Probably will not need to transfer to [facility] 10/20: She remains in intensive care unit waiting for a bed and states that she is hungry. She is currently on clear liquid diet and requesting more food. Soft diet will be started. Patient has good output from ostomy. She denies any abdominal tenderness. At this point, transferred to [facility] will be canceled. Dr. Kumar has recommended a small bowel follow-through. She has been afebrile, heart rate 70, blood pressure 112/75, pulse ox 95% on room air. Patient has been transfused a total of 2 units of packed RBCs during this hospitalization. Patient is followed by neurology and maintained on Keppra 500 mg every 12 hours. MRI of the brain has been ordered by neurology. Repeat blood work will be ordered for tomorrow. 10/21: Patient is seen today on the Med[facility] floor. She is complaining of a headache when she took Tylenol this morning for that. She has been able to eat without difficulty, positive output from colostomy. PT/OT have recommended subacute rehab. Patient would like to go home but is working with medical case manager to make arrangements. MRI of the brain is pending and is bringing paperwork regarding previous surgeries. Patient has been afebrile, heart rate 73, blood pressure 122/87, pulse ox 100% on room air. Repeat blood work reveals WBC 7.4, hemoglobin 8.6, platelet count 422. Sodium 139, potassium 4.2, chloride 111, CO2 21, BUN 12 and creatinine 0.9. Calcium 7.6. Magnesium 1.3 and will be replaced. Urine culture was finalized with enterococcus and antibiotics will be changed to Macrodantin. Anticipate discharge in the next 24 hours. REVIEW OF SYSTEMS Constitutional: No fever, no chills, no night sweats. No weight change. No weakness, fatigue or lethargy. No daytime sleepiness. EENT: reports headache. No blurred vision or double vision, no loss of vision. No loss of Hearing, no ringing in the ears, no dizziness. No nasal drainage or congestion. No epistaxis. No sore throat. Lungs: No shortness of breath, cough, no sputum production. No wheezing. Cardiovascular: No chest pain, no lower extremity edema. No palpitations. No paroxysmal nocturnal dyspnea. No orthopnea. No lightheadedness or dizziness. No syncopal episodes. Abdominal: No abdominal pain. No nausea, vomiting. No diarrhea. Denies constipation. No bloody or tarry stools.. No loss of appetite. Genitourinary: No dysuria, increased frequency, urgency. No urinary retention. Musculoskeletal: No myalgias. No muscle weakness, no gait dysfunction, no frequent falls. No back pain. No neck pain. Integumentary: Positive abdominal wound, chronic, no lesions. No rash or pru ritus. No unusual bruising. No change in hair or nails. Neurologic: No aphasia. No facial droop. No change in mentation. No head injury. No headache. No paralysis. No paresthesia. Positive seizure activity. Psychiatric: No depression. No anxiety. No mood swings. Endocrine: No abnormal blood sugars. No weight change. No excessive sweating or thirst. No cold intolerance. PHYSICAL EXAMINATION Gen: This is a 70-year-old female, resting in bed and appears to be comfortable and in no acute distress. HEENT: Head is atraumatic, normocephalic. Pupils equal, round. Sclerae is anicteric. NECK: Supple. No JVD. No lymphadenopathy. No thyromegaly. Chest: Decreased breath sounds at bases, few rhonchi, no expiratory wheezes, no chest wall tenderness, no intercostal retractions. vehicle monitor technician sinus rhythm. Heart: First heart sound is depressed, second heart sounds normal, there is systolic ejection murmur 2/6 located in the left sternal border. ABDOMEN: Soft. Bowel sounds are present. No masses. No tenderness. Small open wound at the previous surgical site. Colostomy in place with brown stool.. EXTREMITIES: No pedal edema. No calf tenderness. NEUROLOGICAL: Patient is awake, alert and oriented x3. Cranial nerves 2 through 12 are grossly intact. ASSESSMENT AND PLAN 1. New onset seizure. Continue seizure precautions, neurology consult appreciated, continue Keppra 500 mg every 12 hours. MRI of the brain. 2. Electrolyte abnormalities with hypomagnesemia, hypocalcemia. 3. Acute urinary tract infection. Discontinue Zosyn and start Macrodantin.. 4. Acute kidney injury. 5. High-grade mechanical small bowel obstruction, present on admission, resolved. Consult with Dr. Kumar appreciated. Transfer to [facility] canceled. Advance diet to soft. 6. Left-sided hydronephrosis and hydroureter. Continue to monitor urinary function. 7. Uterine cancer status post total abdominal hysterectomy, bilateral salpingo- oophorectomy with resultant colostomy follows with [facility] oncology at [facility]. 8. Hypertension and hypertensive cardiovascular disease. Continue patient on metoprolol 50 mg orally every day. 9. DVT of the left lower extremity. Continue Xarelto 20 mg at bedtime. 10. Hyperlipidemia. Continue patient Lipitor 40 mg orally once every day. 11. Medical debility. Physical therapy evaluation 12. Leukopenia most likely secondary to underlying uterine cancer. 13. Small surgical wound, abdominal. Continue Aquacel Ag every other day. 14. DVT prophylaxis. Xarelto on hold. 15. GI prophylaxis. Protonix 40 mg po every 24 hours. DISCHARGE PLAN Expect subacute rehab if patient is agreeable. PT and OT consults appreciated. Impression and plan of care have been directed as dictated by the signing physician. Roya Jon nurse practitioner acting as scribe for signing physician. Objective - Vital Signs Vital signs: Vital Signs Temp 98.2 F 10/21/20 04:00 Pulse 73 10/21/20 04:00 Resp 16 10/21/20 04:00 BP 122/87 10/21/20 04:00 Pulse Ox 100 10/21/20 04:00 Intake & Output 10/20/20 10/21/20 10/21/20 18:59 06:59 18:59 Intake Total 800 Balance 800 Intake: IV 700 Piperacillin-Tazobactam 3 100 .375 gm In Sodium Chloride 0.9% 100 ml @ 200 mls/hr IVPB Q8HR [facility] Rx#:[id number] Sodium Chloride 0.9% 1, 600 000 ml @ 75 mls/hr IV . [id number] [facility] Rx#:[id number] Oral 100 Other: Voiding Method External Catheter # Bowel Movements 1 - Labs CBC & Chem 7: 10/21/20 05:38 10/21/20 05:38 Labs: Abnormal Lab Results - Last 24 Hours (Table) 10/20/20 10/20/20 10/21/20 Range/Units 03:06 03:06 05:38 RBC 2.78 L (3.80-5.40) m/uL Hgb 8.6 L (11.4-16.0) gm/dL Hct 26.0 L (34.0-46.0) % RDW 17.4 H (11.5-15.5) % Total Protein (PEP) 5.0 L (6.2-8.2) g/dL Vitamin B12 1573.0 H (200.0-944.0) pg/mL Microbiology - Last 24 Hours (Table) 10/15/20 18:00 Blood Culture - Preliminary Blood No Growth after 120 hours 10/15/20 17:41 Blood Culture - Preliminary Blood No Growth after 120 hours
[2020-10-21] MEDS: MAGNESIUM SULFATE-D5W PMX 1 GM in DEXTROSE/WATER 1 100ML.BAG IVPB SCH ×3 (11:54→14:41)
[2020-10-21] MEDS: SODIUM CHLORIDE 0.9% 1,000 ML IV SCH ×2 (11:55→20:42)
[2020-10-21] MEDS: NITROFURANTOIN MONOHYD/M-CRYST 100 MG CAP PO SCH ×2 (12:49→20:41)
[2020-10-21 13:55] LABS: Albumin 2.03 g/dL (3.80-4.90); Gamma Globulin 1.33 g/dL (0.70-1.50)
--- NOTE | 2020-10-21 15:04 | P.PN ---
Subjective Progress Note Date: 10/21/20 Principal diagnosis: Anemia Patient doing well today. Denies abdominal pain. Tolerating diet without difficulties. No nausea or vomiting. Good ostomy function. Objective - Vital Signs Vital signs: Vital Signs Temp 98.2 F 10/21/20 12:42 Pulse 69 10/21/20 12:42 Resp 17 10/21/20 12:42 BP 105/68 10/21/20 12:42 Pulse Ox 98 10/21/20 12:42 Intake & Output 10/20/20 10/21/20 10/21/20 18:59 06:59 18:59 Intake Total 800 Output Total 150 Balance 800 -150 Intake: IV 700 Piperacillin-Tazobactam 3 100 .375 gm In Sodium Chloride 0.9% 100 ml @ 200 mls/hr IVPB Q8HR [facility] Rx#:[id number] Sodium Chloride 0.9% 1, 600 000 ml @ 75 mls/hr IV . [id number] [facility] Rx#:[id number] Oral 100 Output: Stool 150 Other: Voiding Method External Catheter External Catheter # Bowel Movements 1 - Exam Abdomen: Soft, nondistended, nontender, ostomy function - Labs CBC & Chem 7: 10/21/20 05:38 10/21/20 05:38 Labs: Abnormal Lab Results - Last 24 Hours (Table) 10/20/20 10/20/20 10/21/20 Range/Units 03:06 03:06 05:38 RBC (3.80-5.40) m/uL Hgb (11.4-16.0) gm/dL Hct (34.0-46.0) % RDW (11.5-15.5) % Chloride 111 H (96-109) mmol/L Calcium 7.6 L (8.7-10.3) mg/dL Magnesium 1.3 L (1.5-2.4) mg/dL Total Protein 4.8 L (6.2-8.2) g/dL Albumin 2.20 L (3.80-4.90) g/dL Albumin (PEP) 2.03 L (3.80-4.90) g/dL Albumin/Globulin Ratio 0.85 L (1.60-3.17) g/dL Beta Globulins 0.55 L (0.60-1.30) g/dL Vitamin B12 1573.0 H (200.0-944.0) pg/mL 10/21/20 Range/Units 05:38 RBC 2.78 L (3.80-5.40) m/uL Hgb 8.6 L (11.4-16.0) gm/dL Hct 26.0 L (34.0-46.0) % RDW 17.4 H (11.5-15.5) % Chloride (96-109) mmol/L Calcium (8.7-10.3) mg/dL Magnesium (1.5-2.4) mg/dL Total Protein (6.2-8.2) g/dL Albumin (3.80-4.90) g/dL Albumin (PEP) (3.80-4.90) g/dL Albumin/Globulin Ratio (1.60-3.17) g/dL Beta Globulins (0.60-1.30) g/dL Vitamin B12 (200.0-944.0) pg/mL Microbiology - Last 24 Hours (Table) 10/15/20 18:00 Blood Culture - Preliminary Blood No Growth after 120 hours 10/15/20 17:41 Blood Culture - Preliminary Blood No Growth after 120 hours Assessment and Plan (1) Anemia Narrative/Plan: Patient doing well at this time. No further nausea or vomiting. Tolerating diet. Continue diet as ordered. Follow hemoglobin. Possible discharge tomorrow. Recommend outpatient follow-up shortly after discharge with her surgical oncologist. Current Visit: Yes Status: Acute Code(s): D64.9 - ANEMIA, UNSPECIFIED SNOMED Code(s): 259370415
[2020-10-21] MEDS: FOLIC ACID 1 MG TAB PO SCH (17:33)
[2020-10-21 19:48] VITALS: RESP 16
[2020-10-21] MEDS: ASPIRIN 325 MG TAB PO SCH (20:41)
[2020-10-22 04:57] VITALS: TEMP 98.4
[2020-10-22] MEDS ORDERED: PANTOPRAZOLE 40 MG TABLET PO SCH (07:30)
[2020-10-22] MEDS: SENNOSIDES 8.6 MG TAB PO SCH (07:41)
[2020-10-22] MEDS: ATORVASTATIN 40 MG TAB PO SCH (07:41)
[2020-10-22] MEDS: FERROUS SULFATE 325 MG TAB PO SCH (07:41)
[2020-10-22] MEDS: METOPROLOL TARTRATE 50 MG TAB PO SCH (07:41)
[2020-10-22] MEDS: levETIRAcetam 500 MG TAB PO SCH (07:41)
[2020-10-22] MEDS: MAGNESIUM HYDROXIDE 2,400 MG/10 ML CUP PO SCH (07:41)
[2020-10-22] MEDS: polyethylene glycoL 3350 17 GM POWD.PACK PO SCH (07:41)
[2020-10-22] MEDS: FOLIC ACID 1 MG TAB PO SCH (07:42)
[2020-10-22] MEDS: POTASSIUM CHLORIDE ER 20 MEQ TAB.ER PO SCH (07:42)
[2020-10-22] MEDS: NITROFURANTOIN MONOHYD/M-CRYST 100 MG CAP PO SCH (07:42)
--- NOTE | 2020-10-22 08:17 | P.DS ---
Providers Date of admission: 10/15/20 17:28 Expected date of discharge: 10/22/20 Attending physician: Brynn Cote Consults: 10/15/20 17:29 Consult Physician Routine Consulting Provider: Jacky Obregon Consult Reason/Comments: Seizure Do you want consulting provider notified?: Yes 10/16/20 13:52 Consult Physician Routine Consulting Provider: Neda Hines Consult Reason/Comments: ICU managment Do you want consulting provider notified?: Already Contacted 10/16/20 14:09 Consult Physician Routine Consulting Provider: Neda Hines Consult Reason/Comments: ICU care Do you want consulting provider notified?: Yes Consult Physician Stat Consulting Provider: Martell Kumar Consult Reason/Comments: Acute GIB Do you want consulting provider notified?: Yes Primary care physician: Brynn Cote Hospital Course: HISTORY OF PRESENT ILLNESS This is a 70-year-old -[place] Citizen female with a previous medical history significant for hypertension and hypertensive cardiovascular disease, hyperlipidemia, uterine cancer status post total abdominal hysterectomy and salpingectomy oophorectomy and followed with [employer] oncologist at [facility] in [place], DVT status post thrombectomy and stent placement and IVC filter. Patient's last hospitalization was in March 2020 at which time she was treated after a fall with left lower extremity weakness. She did have elevated troponins at that time with abnormal EKG but had recently undergone pharmacological stress test and was cleared by cardiology. Patient barely had a seizure yesterday that lasted about 15 minutes, colonic tonic-type seizure that was witnessed by her and she also had a seizure while at the office. EMS was called to transport the patient to the hospital. Patient presented to [facility] emergency center for evaluation by EMS. Upon arrival she was oriented 3. She was found to be afebrile, initial heart rate 129, blood pressure 99/71, pulse ox 100%. EKG was a sinus tachycardia. WBC 2.9, hemoglobin 12.1, platelet count 171. Sodium 135, potassium 4.5, chloride 101, CO2 25, BUN 22 and creatinine 1.26. Blood sugar 105. Calcium 8.1, magnesium 1.1. Total bilirubin 0.1, AST 26, ALT 14, alkaline phosphatase 105. Albumin 2.7. Urinalysis was turbid, blood moderate, leukoesterase large, WBCs greater than 182 with WBC clumps many and bacteria occasional. Lactic acid was 1.4. Ammonia level less than 9. Troponin 0.018. Urine culture is in process. CAT scan of the brain showed age related atrophy and chronic small vessel ischemic change without acute intracranial process. Magnesium was replaced with 2 g IV piggyback, status post 2 L of IV fluids. Patient was started on IV fluids, IV Keppra and neurology consult requested. She has remained afebrile, heart rate in the low 100s and blood pressure 111/79. 10/17: Hemoglobin came back yesterday at 5.9 and patient had episode of emesis the nurse reported as fecal-type material. Patient was ordered for 2 units of packed RBCs and transferred into the intensive care unit, consult added for binding cementer french cord and general surgery. Repeat hemoglobin today is 8.1 after 2 units of packed RBCs. WBC 5.0 and platelet count 314. Electrolytes are normal. BUN 16 and creatinine 1.17. Total bilirubin 0.2, AST 49, ALT 12, alkaline phosphatase 110. Albumin 2.4. Urine cultures positive for group D enterococcus. Blood culture no growth after 24 hours., CAT scan of the abdomen and pelvis reveals mild abdominal ascites in the upper abdomen. Bilateral lower lobe pulmonary infiltrates and atelectasis and pleural effusion. Dilated small bowel in the upper abdomen consistent with high-grade mechanical small bowel obstruction. Transition point is difficult to identify but more likely related to the surgery and the pelvis and surgical clips and dilated loops. Obstruction appears new compared to old exam. There is left-sided hydronephrosis and hydroureter which is also new compared to old. Lower lobe pulmonary abnormalities. Patient is seen today in the intensive care unit. She states she is feeling a lot better from yesterday and unfortunately patient ate breakfast. Patient was supposed to be nothing by mouth. She denies any vomiting. No output from colostomy. Dr. Kumar has advised to transfer patient to [facility]. Case management has been contacted to start arrangements. 10/19/2020 Patient had good bowel movements yesterday.. Patient is being downgraded to medical surgical floor. Abdominal x-rays are still showing small bowel dilatation. Patient was started on soft diet patient's abdomen is soft today. Probably will not need to transfer to [facility] 10/20: She remains in intensive care unit waiting for a bed and states that she is hungry. She is currently on clear liquid diet and requesting more food. Soft diet will be started. Patient has good output from ostomy. She denies any abdominal tenderness. At this point, transferred to [facility] will be canceled. Dr. Kumar has recommended a small bowel follow-through. She has been afebrile, heart rate 70, blood pressure 112/75, pulse ox 95% on room air. Patient has been transfused a total of 2 units of packed RBCs during this hospitalization. Patient is followed by neurology and maintained on Keppra 500 mg every 12 hours. MRI of the brain has been ordered by neurology. Repeat blood work will be ordered for tomorrow. 10/21: [facility] She is complaining of a headache when she took Tylenol this morning for that. She has been able to eat without difficulty, positive output from colostomy. PT/OT have recommended subacute rehab. Patient would like to go home but is working with manager of case to make arrangements. MRI of the brain is pending and is bringing paperwork regarding previous surgeries. Patient has been afebrile, heart rate 73, blood pressure 122/87, pulse ox 100% on room air. Repeat blood work reveals WBC 7.4, hemoglobin 8.6, platelet count 422. Sodium 139, potassium 4.2, chloride 111, CO2 21, BUN 12 and creatinine 0.9. Calcium 7.6. Magnesium 1.3 and will be replaced. Urine culture was finalized with enterococcus and antibiotics will be changed to Macrodantin. Anticipate discharge in the next 24 hours. 10/22: Patient is seen today in follow-up. Plan is for discharge home. Patient was not interested in going to rehab and family has refused home care as well. A donut pillow will be ordered as patient requested for her stage II decubitus ulcer. Pulmonary has signed off. She is urinating well. She denies having any shortness of breath. Patient states that she has an appointment with Dr. Christie on November 02. She does have boost at home was encouraged to continue to take this. Patient has been afebrile, heart rate 77, blood pressure 123/84, pulse ox 98% on room air. Patient will be discharged home today in stable condition. ASSESSMENT AND PLAN 1. New onset seizure. 2. Electrolyte abnormalities with hypomagnesemia, hypocalcemia. 3. Acute enterococcus urinary tract infection. 4. Acute kidney injury. 5. High-grade mechanical small bowel obstruction, present on admission, resolved. 6. Left-sided hydronephrosis and hydroureter. 7. Uterine cancer status post total abdominal hysterectomy, bilateral salpingo- oophorectomy with resultant colostomy follows with [employer] oncology at [facility]. 8. Hypertension and hypertensive cardiovascular disease. 9. Hyperlipidemia. Continue patient Lipitor 40 mg orally once every day. 10. Medical debility. 11. Leukopenia most likely secondary to underlying uterine cancer. 12. Small chroic surgical wound, abdominal. DISCHARGE PLAN Home Impression and plan of care have been directed as dictated by the signing physician. Roya Jon nurse practitioner acting as scribe for signing physician. Patient Condition at Discharge: Good Plan - Discharge Summary New Discharge Prescriptions: New Folic Acid 1 mg PO DAILY tab Furosemide [Lasix] 20 mg PO DAILY #30 tab levETIRAcetam [Keppra] 500 mg PO Q12HR #60 tab Nitrofurantoin Monohyd/M-Cryst [Macrobid] 100 mg PO BID #12 cap Continue Aspirin EC [Ecotrin] 325 mg PO HS Atorvastatin [Lipitor] 40 mg PO DAILY #30 tab Polyethylene Glycol 3350 [Miralax] 17 gm PO DAILY Ondansetron Odt [Zofran ODT] 4 mg PO Q8H PRN PRN Reason: Nausea Magnesium Hydroxide [Milk of Magnesia] 2,400 mg PO DAILY Rivaroxaban [Xarelto] 20 mg PO HS Potassium Chloride ER [K-Dur 20] 20 meq PO BID Ferrous Sulfate [Slow Fe] 142 mg PO DAILY Sennosides [Senna] 8.6 mg PO DAILY Metoprolol Tartrate [Lopressor] 50 mg PO DAILY Discharge Medication List Aspirin EC [Ecotrin] 325 mg PO HS 03/29/20 [History] Atorvastatin [Lipitor] 40 mg PO DAILY #30 tab 03/30/20 [Rx] Ferrous Sulfate [Slow Fe] 142 mg PO DAILY 10/15/20 [History] Magnesium Hydroxide [Milk of Magnesia] 2,400 mg PO DAILY 10/15/20 [History] Metoprolol Tartrate [Lopressor] 50 mg PO DAILY 10/15/20 [History] Ondansetron Odt [Zofran ODT] 4 mg PO Q8H PRN 10/15/20 [History] Polyethylene Glycol 3350 [Miralax] 17 gm PO DAILY 10/15/20 [History] Potassium Chloride ER [K-Dur 20] 20 meq PO BID 10/15/20 [History] Rivaroxaban [Xarelto] 20 mg PO HS 10/15/20 [History] Sennosides [Senna] 8.6 mg PO DAILY 10/15/20 [History] Folic Acid 1 mg PO DAILY tab 10/22/20 [Rx] Furosemide [Lasix] 20 mg PO DAILY #30 tab 10/22/20 [Rx] Nitrofurantoin Monohyd/M-Cryst [Macrobid] 100 mg PO BID #12 cap 10/22/20 [Rx] levETIRAcetam [Keppra] 500 mg PO Q12HR #60 tab 10/22/20 [Rx] Follow up Appointment(s)/Referral(s): Brynn Cote MD [Primary Care Provider] - 10/27/20 10:30 am Patient Instructions/Handouts: Seizure/Epilepsy Discharge Instructions & Follow-Up Activity/Diet/Wound Care/Special Instructions: Follow up with surgical oncologists in 1 week Discharge Disposition: HOME SELF-CARE
--- NOTE | 2020-10-22 08:47 | P.PN ---
Subjective Progress Note Date: 10/21/20 10/21/2020: Patient is laying comfortably in the bed. Offers no complaints. Patient continues to have weakness in her legs. No new concerns. 10/20/2020: Patient was seen for a follow-up. Patient initially seen by Dr. Jacky Obregon. Please refer to his note for details. Patient at present is having her breakfast. States has not eaten for couple days and feels very hungry. Patient is a 70-year-old female with new onset seizure. Patient has history of uterine cancer, status post total abdominal hysterectomy and bilateral salpingo- oophorectomy with colostomy placement on chemotherapy. Patient also has history of DVT on Xarelto. Also has hypertension and hyperlipidemia. Patient had 2 GDC seizures. 1 at home and one at her PCPs office. Patient did have some anemia, electrolyte imbalance, bowel obstruction, therefore metabolic causes may be the etiology. Patient denies tongue bite although she did lose control of urine with a seizure. Patient denies any use of alcohol, or use of sleeping aids on a regular basis. Patient has been started on Keppra 500 mg twice a day. Await MRI of the brain with and without contrast. Objective - Vital Signs Vital signs: Vital Signs Temp 98.4 F 10/22/20 04:55 Pulse 79 10/22/20 04:55 Resp 16 10/22/20 04:55 BP 123/88 10/22/20 04:55 Pulse Ox 100 10/22/20 04:55 Intake & Output 10/21/20 10/22/20 10/22/20 18:59 06:59 18:59 Intake Total 480 600 Output Total 150 Balance 330 600 Intake: IV 600 Sodium Chloride 0.9% 1, 600 000 ml @ 75 mls/hr IV . [id number] [facility] Rx#:[id number] Oral 480 Output: Stool 150 Other: Voiding Method External Catheter External Catheter - Exam Patient's mental status is normal. Detailed testing deferred. She is alert and awake. Cranial nerves are all normal. Visual villalobos are full with no neglect. Face is symmetric and tongue protrudes to the midline. Patient is hard of hearing. On muscle strength testing, the strength is normal in upper limbs. In the lower limbs hip flexion 3+ with mild resistance. Ankle dorsiflexion 3+4-/2-3, toe extension 3/3. Peroneal muscles are even weaker worse on the left. Patient is areflexic and plantars are flat. - Labs CBC & Chem 7: 10/21/20 05:38 10/21/20 05:38 Labs: Abnormal Lab Results - Last 24 Hours (Table) 10/20/20 10/21/20 Range/Units 03:06 05:38 Chloride 111 H (96-109) mmol/L Calcium 7.6 L (8.7-10.3) mg/dL Magnesium 1.3 L (1.5-2.4) mg/dL Total Protein 4.8 L (6.2-8.2) g/dL Albumin 2.20 L (3.80-4.90) g/dL Albumin (PEP) 2.03 L (3.80-4.90) g/dL Albumin/Globulin Ratio 0.85 L (1.60-3.17) g/dL Beta Globulins 0.55 L (0.60-1.30) g/dL Microbiology - Last 24 Hours (Table) 10/15/20 18:00 Blood Culture - Final Blood No Growth after 144 hours 10/15/20 17:41 Blood Culture - Final Blood No Growth after 144 hours Assessment and Plan Assessment: New onset seizure (had two GTC seizure). The first one at home and the second one at her PCP office). Unknown exact cause at this time. Rule out brain metastasis (which can happen but is low percentage can cause this) and electrolyte imbalance provokes seizure. 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 Seizure precautions. Await MRI the brain with and without. EEG revealed mild to moderate background slowing consistent with encephalopathy. No epileptiform activity was seen. General surgery team is on board. We'll defer the rest of the medical management the primary team. Patient was notified of no driving unless seizure free for 6 months, climbing ladders, operate dangerous machinery or unsupervised swimming. PT OT, evaluate gait. Patient has weakness of bilateral lower extremities, uncertain if related to plexopathy from hysterectomy, or neuropathy from chemotherapy. Hemoglobin A1c 5.8 on 05/08/2020. TFTs normal. Ammonia normal. B12 1573, folate 5.2 low, will be started on replacement, MMA normal 0.14, B6 pending, SPEP revealed suspicious for an IgA lambda paraprotein in the mid beta region that measures approximately 0.08 g/dL. Correlation needed. Immunofixation electrophoresis also revealed suspicious for an IgA lambda paraprotein. 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 Recommend hematology oncology follow-up to assess for paraproteinemia. Rule out myeloma.
--- NOTE | 2020-10-22 12:13 | P.PN ---
Subjective Progress Note Date: 10/22/20 Principal diagnosis: Anemia Patient doing well today. Tolerating diet. No pain. She says she is going home. Objective - Vital Signs Vital signs: Vital Signs Temp 98.4 F 10/22/20 04:55 Pulse 79 10/22/20 04:55 Resp 16 10/22/20 04:55 BP 123/88 10/22/20 04:55 Pulse Ox 100 10/22/20 04:55 Intake & Output 10/21/20 10/22/20 10/22/20 18:59 06:59 18:59 Intake Total 480 600 Output Total 150 Balance 330 600 Intake: IV 600 Sodium Chloride 0.9% 1, 600 000 ml @ 75 mls/hr IV . [id number] [facility] Rx#:[id number] Oral 480 Output: Stool 150 Other: Voiding Method External Catheter External Catheter External Catheter - Exam Abdomen: Soft, nondistended, nontender, ostomy functioning - Labs CBC & Chem 7: 10/21/20 05:38 10/21/20 05:38 Labs: Abnormal Lab Results - Last 24 Hours (Table) 10/20/20 Range/Units 03:06 Albumin (PEP) 2.03 L (3.80-4.90) g/dL Beta Globulins 0.55 L (0.60-1.30) g/dL Microbiology - Last 24 Hours (Table) 10/15/20 18:00 Blood Culture - Final Blood No Growth after 144 hours 10/15/20 17:41 Blood Culture - Final Blood No Growth after 144 hours Assessment and Plan (1) Anemia Narrative/Plan: Patient doing well at this time. Continue diet as tolerated. Monitor for recurrent abdominal complaints. If any nausea or vomiting or decreased ostomy function is noted recommend reevaluation by her surgical oncologist. Current Visit: Yes Status: Acute Code(s): D64.9 - ANEMIA, UNSPECIFIED SNOMED Code(s): 946605210
[2020-10-22 12:17] VITALS: BP 123/84; PULSE 77
[2020-10-22] MEDS: SODIUM CHLORIDE 0.9% 1,000 ML IV SCH (14:54)
--- NOTE | 2020-12-11 13:15 | CDI ---
Documentation Clarification Form Date: 12/11/2020 01:07:26 PM From: Mg Rivas Admit Date: 10/15/2020 05:28:00 PM Patient Name: Cassandra Gillespie Visit Number: [id number] Discharge Date: 10/22/2020 03:29:00 PM ATTENTION: The Clinical Documentation Specialists (CDI) and [facility] Coding Staff appreciate your assistance in clarifying documentation. Please respond to the clarification below the line at the bottom and electronically sign. The CDI & [facility] Coding staff will review the response and follow-up if needed. Please note: Queries are made part of the Legal Health Record. If you have any questions, please contact the author of this message via ITS. Dr. Brynn Cote Progress notes 10/18-10/19 indicate the patient underwent total hysterectomy with BSO with diabetic colostomy. There is no other supporting documentation of diabetes. Please clarify the type of diabetes, if known: [ ] Diabetes Type 1 [ ] Diabetes Type 2 [ X ] No diagnosis of diabetes [ ] Other, please specify [ ] Unable to Determine this was a TYPO it was supposed to say DIVERTING COLOSTOMY MTDD
== END 2020-10-22 15:29 | disposition home or self-care (01) | DRG 101 ==
LOC: EC 13:03 → 3SCARD 17:28 → 2SICU 10-16 13:55 → 5NMEDONC 10-20 16:52
PROVIDERS: ADMIT Internal Medicine; ATTEND Internal Medicine
PROC: 30233N1 Transfusion of Nonautologous Red Blood Cells into Peripheral Vein, Percutaneous Approach (ICD-10-PCS; principal; 2020-10-16)
DX: R56.9 Unspecified convulsions (principal); K56.690 Other partial intestinal obstruction; N17.9 Acute kidney failure, unspecified; N39.0 Urinary tract infection, site not specified; N13.6 Pyonephrosis; K92.2 Gastrointestinal hemorrhage, unspecified; G93.40 Encephalopathy, unspecified; Z79.01 Long term (current) use of anticoagulants; E86.0 Dehydration; E78.5 Hyperlipidemia, unspecified; Z92.21 Personal history of antineoplastic chemotherapy; Z86.718 Personal history of other venous thrombosis and embolism; M15.9 Polyosteoarthritis, unspecified; Z90.710 Acquired absence of both cervix and uterus; Z93.3 Colostomy status; Z83.3 Family history of diabetes mellitus; Z82.49 Family history of ischemic heart disease and other diseases of the circulatory system; Z80.6 Family history of leukemia; Z81.1 Family history of alcohol abuse and dependence; E83.42 Hypomagnesemia; E83.51 Hypocalcemia; L89.152 Pressure ulcer of sacral region, stage 2; Z20.822 Contact with and (suspected) exposure to COVID-19; I11.9 Hypertensive heart disease without heart failure; D64.9 Anemia, unspecified; B95.2 Enterococcus as the cause of diseases classified elsewhere; D89.2 Hypergammaglobulinemia, unspecified; E53.8 Deficiency of other specified B group vitamins; C55 Malignant neoplasm of uterus, part unspecified; Z95.828 Presence of other vascular implants and grafts; Z90.5 Acquired absence of kidney; Z90.49 Acquired absence of other specified parts of digestive tract; Z79.899 Other long term (current) drug therapy; Z79.82 Long term (current) use of aspirin
CPT/HCPCS: 36415; 70450; 74019; 74177; 80053; 81001; 82140; 82330; 82607; 82746; 83605; 83735; 83921; 84165; 84207; 84484; 85025; 85027; 86334; 86850; 86900; 86901; 86920; 87040; 87077; 87086; 87186; 93005; 94760; 95816; 96361; 96365; 96366; 96368; 96375; 99285